=== PATIENT | male | born 1950 | race Caucasian/White ===

== ENCOUNTER → 2018-07-10 | Outpatient (CLI) | payer OTHER | LOC: LAB FS 11:00 | PROVIDERS: ATTEND Family Medicine | DX: L97.523 Non-pressure chronic ulcer of other part of left foot with necrosis of muscle (principal) | CPT/HCPCS: 87070; 87075; 87077; 87186; 87205 ==

== ENCOUNTER → 2018-08-22 | Outpatient (CLI) | payer OTHER | LOC: LAB FS 16:09 | PROVIDERS: ATTEND Family Medicine | DX: L97.329 Non-pressure chronic ulcer of left ankle with unspecified severity (principal) | CPT/HCPCS: 87070; 87205 ==

== ENCOUNTER → 2018-09-17 | Outpatient (CLI) | payer OTHER | LOC: LAB FS 14:54 | PROVIDERS: ATTEND Family Medicine | DX: L89.623 Pressure ulcer of left heel, stage 3 (principal) | CPT/HCPCS: 87070; 87205 ==

== ENCOUNTER → 2018-12-04 | Outpatient (CLI) | payer MEDICARE, OTHER | LOC: WOUNDCARE 09:14 | PROVIDERS: ATTEND Nurse Practitioner | DX: E11.621 Type 2 diabetes mellitus with foot ulcer (principal); E11.22 Type 2 diabetes mellitus with diabetic chronic kidney disease; N18.6 End stage renal disease; L97.522 Non-pressure chronic ulcer of other part of left foot with fat layer exposed; I12.0 Hypertensive chronic kidney disease with stage 5 chronic kidney disease or end stage renal disease; M19.91 Primary osteoarthritis, unspecified site; E11.40 Type 2 diabetes mellitus with diabetic neuropathy, unspecified | CPT/HCPCS: 99214 ==

== ENCOUNTER → 2018-12-04 | Outpatient (CLI) | payer MEDICARE, OTHER ==
--- NOTE | 2018-12-04 11:24 | Diagnostic Imaging Report ---
INDICATION: Ulcer. Previous amputation. History of diabetes . COMPARISON: None. FINDINGS: Three radiographic views of the left foot were obtained. There is rounded lucency with central opacity in the proximal portions of the fifth metatarsal that measures 7 mm and is only well visualized on the lateral view. Findings could be on the basis of osteomyelitis with potential sequestrum. Additionally, there is gross deformity of the distal margins of the fifth metatarsal. There is narrowing of the distal fifth metatarsal with overall increased sclerosis. Note is also made of gross deformity of the distal margins of the first metatarsal as well as the proximal distal margins of the first proximal phalanx. No acute fracture is seen. Joint spaces are otherwise maintained. No unexpected radiopaque foreign bodies are seen. Note is made of generalized soft tissue swelling. IMPRESSION: 1. Abnormal appearance to the fifth metatarsal as described above. Again, findings are concerning for osteomyelitis of the proximal fifth metatarsal. Correlation with MRI is recommended. 2. Chronic appearing gross deformity of the great toe. Dictated by: Dictated on workstation # [id number]
== END ==
LOC: RAD 10:41
PROVIDERS: ATTEND Nurse Practitioner
DX: E11.621 Type 2 diabetes mellitus with foot ulcer (principal); E11.22 Type 2 diabetes mellitus with diabetic chronic kidney disease; N18.6 End stage renal disease; L97.522 Non-pressure chronic ulcer of other part of left foot with fat layer exposed; Z89.432 Acquired absence of left foot
CPT/HCPCS: 73630

== ENCOUNTER → 2018-12-11 | Outpatient (CLI) | payer MEDICARE, OTHER ==
--- NOTE | 2018-12-11 18:10 | Diagnostic Imaging Report ---
INDICATION: Diabetic foot ulcer. EXAMINATION: Noninvasive study was performed. FINDINGS: Patient has had a right below the knee amputation. Waveforms in the left thigh and calf appear unremarkable. The segmental pressures are decreased in the ankle and digital level on the left side. IMPRESSION: Decreased segmental brachial index on the left side in the dorsalis pedis and digital level, as described above. Dictated by: Dictated on workstation # [id number]
== END ==
LOC: RAD 11:42
PROVIDERS: ATTEND Nurse Practitioner
DX: L97.522 Non-pressure chronic ulcer of other part of left foot with fat layer exposed (principal); E11.621 Type 2 diabetes mellitus with foot ulcer; E11.22 Type 2 diabetes mellitus with diabetic chronic kidney disease; N18.6 End stage renal disease
CPT/HCPCS: 93923

== ENCOUNTER → 2018-12-11 | Outpatient (CLI) | payer MEDICARE, OTHER | LOC: WOUNDCARE 10:56 | PROVIDERS: ATTEND Nurse Practitioner | DX: E11.621 Type 2 diabetes mellitus with foot ulcer (principal); E11.52 Type 2 diabetes mellitus with diabetic peripheral angiopathy with gangrene; E11.22 Type 2 diabetes mellitus with diabetic chronic kidney disease; N18.6 End stage renal disease; L97.522 Non-pressure chronic ulcer of other part of left foot with fat layer exposed | CPT/HCPCS: 99213 ==

== ENCOUNTER → 2018-12-18 | Outpatient (CLI) | payer MEDICARE | LOC: WOUNDCARE 09:37 | PROVIDERS: ATTEND Surgery | DX: E11.621 Type 2 diabetes mellitus with foot ulcer (principal); E11.42 Type 2 diabetes mellitus with diabetic polyneuropathy; L97.522 Non-pressure chronic ulcer of other part of left foot with fat layer exposed; M86.472 Chronic osteomyelitis with draining sinus, left ankle and foot; M14.672 Charcot's joint, left ankle and foot; E11.22 Type 2 diabetes mellitus with diabetic chronic kidney disease; N18.6 End stage renal disease; E66.01 Morbid (severe) obesity due to excess calories; M62.3 Immobility syndrome (paraplegic); E11.65 Type 2 diabetes mellitus with hyperglycemia; E11.52 Type 2 diabetes mellitus with diabetic peripheral angiopathy with gangrene | CPT/HCPCS: 11042; 87070; 87077; 87186; 87205 ==

== ENCOUNTER → 2018-12-24 | Outpatient (CLI) | payer MEDICARE | LOC: WOUNDCARE 10:29 | PROVIDERS: ATTEND Surgery | DX: L97.522 Non-pressure chronic ulcer of other part of left foot with fat layer exposed (principal); E11.621 Type 2 diabetes mellitus with foot ulcer; E11.52 Type 2 diabetes mellitus with diabetic peripheral angiopathy with gangrene; E11.42 Type 2 diabetes mellitus with diabetic polyneuropathy; M86.472 Chronic osteomyelitis with draining sinus, left ankle and foot; M14.672 Charcot's joint, left ankle and foot; E11.22 Type 2 diabetes mellitus with diabetic chronic kidney disease; N18.6 End stage renal disease; E66.01 Morbid (severe) obesity due to excess calories; E11.65 Type 2 diabetes mellitus with hyperglycemia; M62.3 Immobility syndrome (paraplegic) | CPT/HCPCS: 11042 ==

== ENCOUNTER → 2018-12-29 | Outpatient (CLI) | payer MEDICARE, OTHER ==
--- NOTE | 2018-12-29 13:50 | Diagnostic Imaging Report ---
PROCEDURE: MR imaging left lower extremity without contrast. TECHNIQUE: Multiplanar, multisequence non contrast enhanced MR imaging of the left lower extremity was accomplished. INDICATION: Wound at the lateral left foot. COMPARISON: Radiographs from 12/04/2018. FINDINGS: The fifth metatarsal base demonstrates mild bone marrow edema, with subtle T1-weighted hypointensity at the lateral base (image 46 series 7). There are degenerative changes throughout the midfoot. There are degenerative changes at the metatarsophalangeal joints as well. There are cortical erosions and synovitis about the first metatarsal head and first proximal phalangeal base as well as about the great toe interphalangeal joint. There is osteonecrosis at the first proximal phalangeal head. The fifth metatarsal shaft demonstrates a diminutive appearance and deformity which is chronic. There is diffuse intramuscular soft tissue edema and extensive muscular atrophy, likely due to neuropathic changes. There is mild subcutaneous edema with skin thickening about the foot. No drainable fluid collection is seen. IMPRESSION: 1. Mild bone marrow edema with subtle T1-weighted hypointensity at the lateral aspect of the left fifth metatarsal base. This is consistent with osteitis with possible early osteomyelitis. 2. Extensive cortical erosions and marked synovitis in the left great toe metatarsophalangeal joint and interphalangeal joint. This may be due to gout or other inflammatory arthropathy. 3. Osteonecrosis of the first proximal phalangeal head. 4. Superficial and deep soft tissue edema. Extensive muscular atrophy is likely due to neuropathic changes. Dictated by: Dictated on workstation # [id number]
== END ==
LOC: RAD 12-24 11:58
PROVIDERS: ATTEND Nurse Practitioner
DX: E11.621 Type 2 diabetes mellitus with foot ulcer (principal); E11.22 Type 2 diabetes mellitus with diabetic chronic kidney disease; N18.6 End stage renal disease; L97.522 Non-pressure chronic ulcer of other part of left foot with fat layer exposed; M85.88 Other specified disorders of bone density and structure, other site; M65.88 Other synovitis and tenosynovitis, other site; M87.9 Osteonecrosis, unspecified

== ENCOUNTER → 2018-12-31 | Outpatient (CLI) | payer MEDICARE | LOC: WOUNDCARE 10:39 | PROVIDERS: ATTEND Surgery | DX: L97.522 Non-pressure chronic ulcer of other part of left foot with fat layer exposed (principal); E11.621 Type 2 diabetes mellitus with foot ulcer; E11.52 Type 2 diabetes mellitus with diabetic peripheral angiopathy with gangrene; E11.42 Type 2 diabetes mellitus with diabetic polyneuropathy; L97.424 Non-pressure chronic ulcer of left heel and midfoot with necrosis of bone; M86.472 Chronic osteomyelitis with draining sinus, left ankle and foot; M14.672 Charcot's joint, left ankle and foot; E11.22 Type 2 diabetes mellitus with diabetic chronic kidney disease; N18.6 End stage renal disease; E11.65 Type 2 diabetes mellitus with hyperglycemia; E66.01 Morbid (severe) obesity due to excess calories; M62.3 Immobility syndrome (paraplegic) | CPT/HCPCS: 11044; 11047 ==

== ENCOUNTER → 2019-01-14 | Outpatient (CLI) | payer MEDICARE | LOC: WOUNDCARE 10:26 | PROVIDERS: ATTEND Surgery | DX: E11.621 Type 2 diabetes mellitus with foot ulcer (principal); E11.42 Type 2 diabetes mellitus with diabetic polyneuropathy; E11.52 Type 2 diabetes mellitus with diabetic peripheral angiopathy with gangrene; E11.610 Type 2 diabetes mellitus with diabetic neuropathic arthropathy; E11.22 Type 2 diabetes mellitus with diabetic chronic kidney disease; E11.65 Type 2 diabetes mellitus with hyperglycemia; L97.424 Non-pressure chronic ulcer of left heel and midfoot with necrosis of bone; M86.472 Chronic osteomyelitis with draining sinus, left ankle and foot; A52.16 Charcot's arthropathy (tabetic); N18.6 End stage renal disease; E66.01 Morbid (severe) obesity due to excess calories; M62.3 Immobility syndrome (paraplegic); I96 Gangrene, not elsewhere classified | CPT/HCPCS: 11044 ==

== ENCOUNTER 2019-01-21 12:07 | Outpatient (RCR) | payer MEDICARE, OTHER ==
[~2019-01-21] VITALS: Ht 180.3 cm; Wt 136.4 kg
== END 2019-04-21 | disposition home or self-care (01) ==
LOC: DSME 12:07
PROVIDERS: ATTEND Pediatrics
DX: E11.65 Type 2 diabetes mellitus with hyperglycemia (principal); E11.40 Type 2 diabetes mellitus with diabetic neuropathy, unspecified; E11.51 Type 2 diabetes mellitus with diabetic peripheral angiopathy without gangrene; E11.21 Type 2 diabetes mellitus with diabetic nephropathy; E66.9 Obesity, unspecified

== ENCOUNTER → 2019-01-21 | Outpatient (CLI) | payer MEDICARE | LOC: WOUNDCARE 10:23 | PROVIDERS: ATTEND Surgery | DX: E11.621 Type 2 diabetes mellitus with foot ulcer (principal); E11.42 Type 2 diabetes mellitus with diabetic polyneuropathy; L97.424 Non-pressure chronic ulcer of left heel and midfoot with necrosis of bone; M86.472 Chronic osteomyelitis with draining sinus, left ankle and foot; M14.672 Charcot's joint, left ankle and foot; E11.22 Type 2 diabetes mellitus with diabetic chronic kidney disease; N18.6 End stage renal disease; E66.01 Morbid (severe) obesity due to excess calories; E11.65 Type 2 diabetes mellitus with hyperglycemia; M62.3 Immobility syndrome (paraplegic); E11.52 Type 2 diabetes mellitus with diabetic peripheral angiopathy with gangrene | CPT/HCPCS: 11044 ==

== ENCOUNTER → 2019-01-28 | Outpatient (CLI) | payer MEDICARE, OTHER | LOC: WOUNDCARE 10:14 | PROVIDERS: ATTEND Surgery | DX: L97.424 Non-pressure chronic ulcer of left heel and midfoot with necrosis of bone (principal); E11.621 Type 2 diabetes mellitus with foot ulcer; E11.42 Type 2 diabetes mellitus with diabetic polyneuropathy; E11.52 Type 2 diabetes mellitus with diabetic peripheral angiopathy with gangrene; M86.472 Chronic osteomyelitis with draining sinus, left ankle and foot; M14.672 Charcot's joint, left ankle and foot; E11.22 Type 2 diabetes mellitus with diabetic chronic kidney disease; N18.6 End stage renal disease; E66.01 Morbid (severe) obesity due to excess calories; E11.65 Type 2 diabetes mellitus with hyperglycemia; M62.3 Immobility syndrome (paraplegic) | CPT/HCPCS: 11044 ==

== ENCOUNTER → 2019-02-04 | Outpatient (CLI) | payer MEDICARE, OTHER | LOC: WOUNDCARE 10:10 | PROVIDERS: ATTEND Surgery | DX: E11.621 Type 2 diabetes mellitus with foot ulcer (principal); E11.42 Type 2 diabetes mellitus with diabetic polyneuropathy; L97.424 Non-pressure chronic ulcer of left heel and midfoot with necrosis of bone; M86.472 Chronic osteomyelitis with draining sinus, left ankle and foot; M14.672 Charcot's joint, left ankle and foot; E66.01 Morbid (severe) obesity due to excess calories; E11.22 Type 2 diabetes mellitus with diabetic chronic kidney disease; N18.6 End stage renal disease; E11.65 Type 2 diabetes mellitus with hyperglycemia; M62.3 Immobility syndrome (paraplegic); E11.52 Type 2 diabetes mellitus with diabetic peripheral angiopathy with gangrene | CPT/HCPCS: 99212 ==

== ENCOUNTER → 2019-04-03 | Outpatient (CLI) | payer MEDICARE, OTHER ==
--- NOTE | 2019-04-03 15:13 | Diagnostic Imaging Report ---
PROCEDURE: US Renal Bilateral. TECHNIQUE: Multiple real-time grayscale images were obtained over the kidneys in various projections bilaterally. INDICATION: Urinary retention. FINDINGS: Right kidney is surgically absent. Left kidney measures 11.2 x 5.5 x 5.5 cm. There is a cyst in the upper pole of left kidney measuring 19 mm x 20 mm. Cortical thickness and echogenicity is normal. No calculi are seen. There is no hydronephrosis. Prevoid bladder volume is 156 mL. The ureteral jets were not visualized. Patient was unable to void. Note is made of stones within the gallbladder. IMPRESSION: 1. Solitary left kidney demonstrating a 2 cm left upper pole renal cyst. No calculi or hydronephrosis is seen. 2. Cholelithiasis. Dictated by: Dictated on workstation # [id number]
== END ==
LOC: RAD 13:41
PROVIDERS: ATTEND Nurse Practitioner Family
DX: N28.1 Cyst of kidney, acquired (principal); K80.20 Calculus of gallbladder without cholecystitis without obstruction
CPT/HCPCS: 76770

== ENCOUNTER 2019-08-02 12:16 | Emergency (ER) | payer MEDICARE, OTHER ==
--- OUTSIDE RECORDS SUMMARY | 2019-08-02 12:21 | XMS REPORT ---
Author Author Neel MARKHAM Organization [facility] [place] Address [address] [place] [address] Care Team Providers Care Steel Detailer Name Role Phone BECCA MARKHAM Unavailable PROBLEMS Type Condition ICD9-CM Code TQG27-SG Code Onset Dates Condition S tatus SNOMED Code Problem Hypertension associated with stage 4 chronic kidney disease due to type 2 diabetes mellitus E11.22 12 Sep, 2016 Active 00771584 3 Problem Nail avulsion, toe S91.209A 07 Nov, 2010 Active 98370421 Problem MRSA cellulitis of left foot L03.116 08 Oct, 3 Active 64953377863983908 Problem Type 1 diabetes mellitus with stage 2 chronic kidney disea se E10.22 Active 358328473 Problem Osteomyelitis, ankle and foot M86.9 July, 11 Active 41371819 Problem Allergic rhinitis due to other allergen J30.89 Active 00082129 Problem Chronic kidney disease with end stage renal failure on dialysis N18.6 Jan, Active 78317258 Problem Single kidney Z90.5 Active 721374 007 Problem History of right below knee amputation Z89.511 Active 241934938 Problem Diabetic foot infection E11.628 08 Oct, 2012 Act micaela Problem Unspecified sleep apnea G47.30 Active 56351260 Problem Allergic rhinitis J30.9 Active 61 354035 Problem Hyponatremia E87.1 Active 6434696 8 Problem Hypertension I10 Active 3260005 3 Problem Renal insufficiency N28.9 Active 710892778 Problem Hyperkalemia E87.5 Active 7718517 9 Problem Panlobular emphysema J43.1 Active 3052948 Problem Deep vein thrombosis (DVT) I82.409 Act micaela 669696790 Problem 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 Active 547145292 Problem Dialysis patient Z99.2 Active 251 123771 Problem Diabetic polyneuropathy associated with type 1 d iabetes mellitus E10.42 Active 54646712 Problem Morbid (severe) obesity due to excess calories E66 .01 Active 677554567 Problem Paroxysmal atrial fibrillation I48.0 Active 623281932 Problem STEPHEN (obstructive sleep apnea) G47.33 Active 83611724 Problem Major depressive disorder, single episode, in full remissi on F32.5 Active 77147947 Problem Restrictive lung disease J98.4 Activ e 23265985 Problem Morbid obesity E66.01 Active 17089 6002 Problem Osteomyelitis, unspecified M86.9 Act micaela 35568292 Problem 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 Active 959861612 Problem Type 1 diabetes mellitus with foot ulcer E10.621 Active 23849128099614 Problem 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 Active 292044045 ALLERGIES Substance Reaction Event Type Date Status Morphine Sulfate rash Drug Allergy May, Active ENCOUNTERS Encounter Location Date [facility] [address] [place] [address] Apr, [facility] [address] [place] [address] Apr, [facility] [address] [place] [address] Feb, [facility] [address] [place] [address] Feb, [facility] [address] [place] [address] Feb, [facility] [address] [place] [address] Feb, [facility] [address] [place] [address] Feb, [facility] [address] [place] [address] Feb, [facility] [address] [place] [address] Jan, [facility] [address] [place] [address] Jan, Hypertension I10 ; Major dep ressive disorder, single episode, in full remission F32.5 ; 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 ; Paroxysmal atrial fibrillation I48.0 and Osteomyelitis, ankle and foot M86.9 [facility] [place] [address] [place] [address] Jan, [facility] [place] [address] [place] [address] Nov, [facility] [place] [address] [place] [address] Oct, Osteomyelitis, ankle and seferino t M86.9 and 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 [facility] [address] [facility] [place] [address] Oct, [facility] [address] [place] [address] Oct, [facility] [place] [address] [place] [address] Oct, [facility] [address] [place] [address] Sep, [facility] [address] [place] [address] Sep, [facility] [address] [place] [address] Sep, Type 1 diabetes mellitus wit h diabetic chronic kidney disease E10.22 ; Type 1 diabetes mellitus with foot ulcer E10.621 ; Non-pressure chronic ulcer of right heel and midfoot with fat layer exposed L97.412 and Morbid obesity E66.01 [facility] [place] [address] [place] [address] Sep, [facility] [place] [address] [place] [address] Sep, [facility] [place] [address] [place] [address] Sep, [facility] [place] [address] [place] [address] Sep, [facility] [address] [id number] [place] [address] Aug, [facility] [address] [place] [address] Aug, [facility] [address] [place] [address] Aug, Osteomyelitis, ankle and seferino t M86.9 and Decubitus ulcer of heel, stage 4 L89.604 [facility] [address] [place] [address] Aug, [facility] [address] [place] [address] Aug, [facility] [address] [place] [address] Aug, [facility] [address] [place] [address] July, [facility] [address] [place] [address] July, Type 1 diabetes mellitus wit h diabetic chronic kidney disease E10.22 [facility] [address] [place] [address] July, [facility] [address] [place] [address] Jun, [facility] [address] [place] [address] Jun, [facility] [address] [place] [address] Jun, Type 1 diabetes mellitus wit h diabetic chronic kidney disease E10.22 and Chronic renal disease, stage III N18.3 [facility] [address] [place] [address] Jun, Type 1 diabetes mellitus wit h diabetic chronic kidney disease E10.22 and Chronic renal disease, stage III N18.3 [facility] [place] [address] [place] [address] Jun, Osteomyelitis, unspecified M 86.9 [facility] [place] [address] [place] [address] Jun, [facility] [address] [place] [address] Jun, [facility] [address] [place] [address] Jun, [facility] [address] [place] [address] Jun, Morbid (severe) obesity due to excess calories E66.01 ; Dialysis patient Z99.2 ; 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 ; Chronic renal disease, stage III N18.3 ; Single kidney Z90.5 ; Status post below knee amputation of right lower extremity Z89.511 and Diabetic polyneuropathy associated with type 1 diabetes mellitus E10.42 [facility] [address] [place] [address] Jun, [facility] [address] [place] [address] Jun, [facility] [address] [place] [address] Jun, [facility] [address] [place] [address] May, [facility] [address] [place] [address] May, [facility] [address] [place] [address] May, [facility] [address] [id number] [place] [address] May, [facility] [address] [place] [address] May, Type 1 diabetes mellitus wit h diabetic chronic kidney disease E10.22 and Chronic renal disease, stage III N18.3 [facility] [address] [place] [address] Apr, [facility] [address] [place] [address] Apr, [facility] [address] [place] [address] Apr, [facility] [address] [id number] [place] [address] Mar, [facility] [address] [id number] [place] [address] Feb, [facility] [address] [id number] [place] [address] Aug, IMMUNIZATIONS No Known Immunizations SOCIAL HISTORY Never Assessed REASON FOR VISIT CH PLAN OF CARE Activity Details Follow Up 3 Months Reason:lab and visi t VITAL SIGNS Height 5'10" in 2018-06-17 Weight 250 lbs 2018-06-17 BMI 35.87 kg/m2 2018-06-17 Blood pressure systolic 134 mmHg 2018-06-17 Blood pressure diastolic 72 mmHg 2018-06-17 MEDICATIONS Medication Instructions Dosage Frequency Start Date End Date Duration S tatus Aspirin Adult Low Dose 81 MG Orally Once a day 1 tablet 24h 30 day(s) Active HydrALAZINE HCl 50 MG Orally Once a day 1 tablet with food 24h 30 day(s) Active Ozempic 0.25 or 0.5 MG/DOSE Subcutaneous once weekly as directed Apr, 4 weeks Active Amlodipine Besylate 5 MG Orally Once a day 1 tablet 24h 30 day(s) Active Assure 3 Test - as directed Acti ve MiraLax - Orally Once a day 1 packet mixed with 8 ounces of fluid 24h 30 day(s) Active Silvadene 1 % Externally Once a day 1 application to affected area 24h Active Nephro-Forest 0.8 MG Orally Once a day 1 tablet 24h Apr, 30 day(s) Active Humalog 100 UNIT/ML Subcutaneous as directed Per Sliding Sca le: 200-250=2units, 251-300=4units, 301-350=6units. Call physician for BS> 350 - subCUTClass: Historical Med Active Coreg 6.25 MG Orally 2 times a day 1 tablet 12h Active Cymbalta 60 MG Orally Once a day 1 capsule 24h 30 da y(s) Active Protonix 40 MG Orally Once a day 1 tablet 24h 30 day (s) Active HydrOXYzine HCl 25 MG Orally every 8 hrs 1 tablet as needed 8h 30 day(s) Active Lantus 100 UNIT/ML Subcutaneous at bedtime 35 units Active Calcium Acetate 667 MG Orally Three times a day 2 capsules with meals 8h 30 day(s) Active Torsemide 20 MG Orally as directed 1 tab daily except 2 tabs on non-dialysis days Active Oxycodone-Acetaminophen 5-325 MG Orally Once a day 1 tablet as needed 24 h Active Sodium Bicarbonate 325 MG TAKE 2 TABLETS BY MOUTH TWICE DAILY 15 Active RESULTS No Results PROCEDURES Procedure Date Ordered Result Body Site [facility] VISIT ESTABLISHED PATIENT June 17, 2018 INSTRUCTIONS MEDICATIONS ADMINISTERED No Known Medications MEDICAL (GENERAL) HISTORY Type Description Date Medical History Type 1 diabetes mellitus with diabetic c hronic kidney disease Medical History STEPHEN (obstructive sleep apnea) Medical History Allergic rhinitis Medical History Hyponatremia Medical History Morbid obesity Medical History Osteomyelitis Medical History History of right below knee amputation Medical History Panlobular emphysema Medical History Renal insufficiency Medical History Deep vein thrombosis (DVT) Medical History Restrictive lung disease Medical History Hypertension Medical History Hyperkalemia Medical History Chronic renal disease, stage III Surgical History right above the knee amputation Surgical History kidney right removal Surgical History hernia repair Surgical History vein clean out in L arm 06/24/18
--- OUTSIDE RECORDS SUMMARY | 2019-08-02 12:21 | XMS REPORT ---
Author Author Neel MARKHAM Organization [facility] [facility] Address [address] [place] [address] Care Team Providers Care School Aide Name Role Phone BECCA MARKHAM Unavailable PROBLEMS Type Condition ICD9-CM Code XRS10-ZE Code Onset Dates Condition S tatus SNOMED Code Problem Morbid obesity E66.01 Active 45418 6002 Problem Allergic rhinitis J30.9 Active 61 323966 Problem Hyponatremia E87.1 Active 1212840 8 Problem Hypertension I10 Active 9637911 3 Problem Renal insufficiency N28.9 Active 070834242 Problem 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 Active 250471582 Problem STEPHEN (obstructive sleep apnea) G47.33 Active 63249187 Problem 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 Active 983359329 Problem Osteomyelitis, ankle and foot M86.9 July, 11 Active 78279117 Problem Type 1 diabetes mellitus with foot ulcer E10.621 Active 02510239181543 Problem Nail avulsion, toe S91.209A 07 Nov, 2010 Active 68071318 Problem Chronic kidney disease with end stage renal failure on dialysis N18.6 Jan, Active 47940791 Problem Type 1 diabetes mellitus with stage 2 chronic kidney disea se E10.22 Active 914481044 Problem History of right below knee amputation Z89.511 Active 248460140 Problem Restrictive lung disease J98.4 Activ e 21133598 Problem Dialysis patient Z99.2 Active 251 132933 Problem Unspecified sleep apnea G47.30 Active 66444314 Problem Single kidney Z90.5 Active 873758 007 Problem Morbid (severe) obesity due to excess calories E66 .01 Active 531822022 Problem Diabetic foot infection E11.628 08 Oct, 2012 Act micaela Problem Diabetic polyneuropathy associated with type 1 d iabetes mellitus E10.42 Active 37540223 Problem Allergic rhinitis due to other allergen J30.89 Active 21372496 Problem 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 Active 481614146 Problem MRSA cellulitis of left foot L03.116 08 Oct, 201 3 Active 10550786831116899 Problem Osteomyelitis, unspecified M86.9 Act micaela 32479208 Problem Hypertension associated with stage 4 chronic kidney disease due to type 2 diabetes mellitus E11.22 12 Sep, 2016 Active 64312010 3 Problem Paroxysmal atrial fibrillation I48.0 Active 662113769 Problem Major depressive disorder, single episode, in full remissi on F32.5 Active 68593157 Problem Chronic obstructive pulmonary disease, unspecified COPD ty pe J44.9 Active 07575986 Problem Complete traumatic amputatio n of right lower leg, level unspecified, initial encounter S88.911A Active 528130271 Problem Hyperkalemia E87.5 Active 0313281 9 Problem Difficulty swallowing R13.10 Active 501639710 Problem Panlobular emphysema J43.1 Active 9485366 Problem Deep vein thrombosis (DVT) I82.409 Act micaela 241564303 Problem Peripheral vascular disease, unspecified I73.9 Active 301589870 Problem Chronic kidney disease, stage 4 (severe) N18.4 Active 117305986 Problem Obesity (BMI 30-39.9) E66.9 Active 157413811 Problem 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, level unspecified, 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 Active 783370123 ALLERGIES No Information ENCOUNTERS Encounter Location Date Diagnosis [address] [place] [address] July, [address] [place] [address] May, [address] [place] [address] Apr, [address] [place] [address] Apr, Encounter for Medicare annua l wellness exam Z00.00 ; Paroxysmal atrial fibrillation I48.0 ; Morbid (severe) obesity due to excess calories E66.01 ; 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 ; Chronic kidney disease, stage 4 (severe) N18.4 ; Dialysis patient Z99.2 ; History of right below knee amputation Z89.511 ; Hypertension I10 ; Peripheral vascular disease, unspecified I73.9 ; Chronic obstructive pulmonary disease, unspecified COPD type J44.9 ; Left eye complaint H57.9 and Colon cancer screening Z12.11 [facility] [address] [facility] [id number] [place] [address] Apr, [address] [place] [address] Apr, [address] [place] [address] Apr, [address] [place] [address] Apr, Difficulty swallowing R13.10 [address] [place] [address] Apr, Unspecified staphylococcus a s the cause of diseases classified elsewhere B95.8 and Obesity (BMI 30-39.9) E66.9 [address] [place] [address] Mar, STEPHEN (obstructive sleep apnea ) G47.33 [address] [place] [address] Mar, [address] [place] [address] Mar, [address] [place] [address] Mar, STEPHEN (obstructive sleep apnea ) G47.33 [address] [place] [address] Mar, [address] [place] [address] Mar, [address] [place] [address] Feb, [facility] [address] [place] [address] Feb, [facility] [place] [address] [place] [address] Feb, [facility] [place] [address] [place] [address] Feb, [facility] [place] [address] [place] [address] Feb, [facility] [place] [address] [place] [address] Feb, [facility] [place] [address] [place] [address] Jan, [facility] [place] [address] [place] [address] Jan, Hypertension I10 ; Major dep ressive disorder, single episode, in full remission F32.5 ; 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 ; Paroxysmal atrial fibrillation I48.0 and Osteomyelitis, ankle and foot M86.9 [facility] [place] [address] [place] [address] Jan, [facility] [place] [address] [place] [address] Nov, [facility] [place] [address] [place] [address] Oct, Osteomyelitis, ankle and seferino t M86.9 and 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 [facility] [place] [address] [facility] [id number] [place] [address] Oct, [facility] [place] [address] [place] [address] Oct, [facility] [place] [address] [place] [address] Oct, [facility] [place] [facility] [address] [place] [address] Sep, [facility] [place] [address] [place] [address] Sep, [facility] [place] [address] [place] [address] Sep, Type 1 diabetes mellitus wit h diabetic chronic kidney disease E10.22 ; Type 1 diabetes mellitus with foot ulcer E10.621 ; Non-pressure chronic ulcer of right heel and midfoot with fat layer exposed L97.412 and Morbid obesity E66.01 [facility] [place] [address] [place] [address] Sep, [facility] [place] [address] [place] [address] Sep, [facility] [place] [address] [place] [address] Sep, [facility] [place] [address] [place] [address] Sep, [facility] [address] [id number] [place] [address] Aug, [facility] [place] [address] [place] [address] Aug, [facility] [place] [address] [place] [address] Aug, Osteomyelitis, ankle and seferino t M86.9 and Decubitus ulcer of heel, stage 4 L89.604 [facility] [place] [address] [place] [address] Aug, [facility] [place] [address] [place] [address] Aug, [facility] [place] [address] [place] [address] Aug, [facility] [place] [address] [place] [address] July, [facility] [place] [facility] [address] [facility] [address] [place] [address] July, Type 1 diabetes mellitus wit h diabetic chronic kidney disease E10.22 [facility] [place] [address] [place] [address] July, [facility] [place] [address] [place] [address] Jun, [facility] [place] [address] [place] [address] Jun, [facility] [place] [address] [place] [address] Jun, Type 1 diabetes mellitus wit h diabetic chronic kidney disease E10.22 and Chronic renal disease, stage III N18.3 [facility] [place] [address] [place] [address] Jun, Type 1 diabetes mellitus wit h diabetic chronic kidney disease E10.22 and Chronic renal disease, stage III N18.3 [facility] [place] [address] [place] [address] Jun, Osteomyelitis, unspecified M 86.9 [facility] [place] [address] [place] [address] Jun, [facility] [place] [facility] [address] [place] [address] Jun, [facility] [place] [address] [place] [address] Jun, [facility] [place] [address] [place] [address] Jun, Morbid (severe) obesity due to excess calories E66.01 ; Dialysis patient Z99.2 ; 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 ; Chronic renal disease, stage III N18.3 ; Single kidney Z90.5 ; Status post below knee amputation of right lower extremity Z89.511 and Diabetic polyneuropathy associated with type 1 diabetes mellitus E10.42 [facility] [place] [address] [place] [address] Jun, [facility] [place] [address] [place] [address] Jun, [facility] [place] [address] [place] [address] Jun, [facility] [place] [address] [place] [address] May, [facility] [place] [facility] [address] [place] [address] May, [facility] [place] [address] [place] [address] May, [facility] [address] [id number] [place] [address] May, [facility] [place] [address] [place] [address] May, Type 1 diabetes mellitus wit h diabetic chronic kidney disease E10.22 and Chronic renal disease, stage III N18.3 [facility] [place] [address] [place] [address] Apr, [facility] [place] [facility] [address] [place] [address] Apr, [facility] [place] [address] [place] [address] Apr, [facility] [address] [id number] [place] [address] Mar, [facility] [address] [id number] [place] [address] Feb, [facility] [id number] [place] [address] Aug, IMMUNIZATIONS No Known Immunizations SOCIAL HISTORY Never Assessed REASON FOR VISIT Requests return call PLAN OF CARE VITAL SIGNS MEDICATIONS Unknown Medications RESULTS No Results PROCEDURES No Known procedures INSTRUCTIONS MEDICATIONS ADMINISTERED No Known Medications MEDICAL [...] vein clean out in L arm 06/24/18 Surgical History left above the knee amputation Hospitalization History surgeries
--- OUTSIDE RECORDS SUMMARY | 2019-08-02 12:21 | XMS REPORT ---
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.22 Active 041682092 Problem Allergic rhinitis due to other allergen J30.89 Active 19688063 Problem Chronic kidney disease with end stage renal failure on dialysis N18.6 Jan, Active 01128339 Problem STEPHEN (obstructive sleep apnea) G47.33 Active 84914698 Problem Restrictive lung disease J98.4 Activ e 84076987 Problem Hyponatremia E87.1 Active 0364936 8 Problem Morbid obesity E66.01 Active 62478 6002 Problem Osteomyelitis, unspecified M86.9 Act micaela 72655940 Problem MRSA cellulitis of left foot L03.116 Oct, 3 Active 96889133300288996 Problem Diabetic polyneuropathy associated with type 1 d iabetes mellitus E10.42 Active 04772584 Problem Hypertension associated with stage 4 chronic kidney disease due to type 2 diabetes mellitus E11.22 Sep, Active 55734304 3 Problem Osteomyelitis, ankle and foot M86.9 July, 11 Active 99257235 Problem Nail avulsion, toe S91.209A Nov, Active 16566098 Problem Hyperkalemia E87.5 Active 2610960 9 Problem Panlobular emphysema J43.1 Active 5234710 Problem History of right below knee amputation Z89.511 Active 626320218 Problem Deep vein thrombosis (DVT) I82.409 Act micaela 832423773 Problem Single kidney Z90.5 Active 197030 007 Problem 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 Active 551263627 Problem Morbid (severe) obesity due to excess calories E66 .01 Active 120007328 Problem Diabetic foot infection E11.628 08 Oct, 2012 Act micaela Problem Dialysis patient Z99.2 Active 251 211802 Problem Unspecified sleep apnea G47.30 Active 45510015 Problem Type 1 diabetes mellitus with foot ulcer E10.621 Active 13363881096345 Problem 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 Active 531011121 Problem 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 Active 885233609 Problem Obesity (BMI 30-39.9) E66.9 Active 831083366 Problem Renal insufficiency N28.9 Active 257712624 Problem Difficulty swallowing R13.10 Active 839761333 Problem Allergic rhinitis J30.9 Active 61 968631 Problem Hypertension I10 Active 8618491 3 Problem Paroxysmal atrial fibrillation I48.0 Active 724258096 Problem Major depressive disorder, single episode, in full remissi on F32.5 Active 79211738 Problem 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, level unspecified, 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 Active 278182478 Problem Complete traumatic amputatio n of right lower leg, level unspecified, initial encounter S88.911A Active 017683717 ALLERGIES No Information ENCOUNTERS Encounter Location Date Diagnosis [address] [place] [address] July, [address] [place] [address] 17 Apr, 2019 [address] [place] [address] 12 Apr, 2019 [address] [place] [address] Apr, [address] [place] [address] 10 Apr, 2019 Difficulty swallowing R13.[address] [place] [address] 07 Apr, 2019 Unspecified staphylococcus a s the cause of diseases classified elsewhere B95.8 and Obesity (BMI 30-39.9) E66.9 [address] [place] [address] Mar, STEPHEN (obstructive sleep apnea ) G47.33 [facility] [place] [address] [place] [address] Mar, [facility] [place] [address] [place] [address] Mar, [facility] [place] [address] [place] [address] Mar, STEPHEN (obstructive sleep apnea ) G47.33 [facility] [place] [address] [place] [address] Mar, [facility] [place] [address] [place] [address] Mar, [facility] [place] [address] [place] [address] Feb, [facility] [place] [address] [place] [address] Feb, [facility] [place] [address] [place] [address] Feb, [facility] [place] [address] [place] [address] Feb, [facility] [place] [address] [place] [address] Feb, [facility] [place] [address] [place] [address] Feb, [facility] [place] [address] [place] [address] Jan, [facility] [place] [address] [place] [address] Jan, Hypertension I10 ; Major dep ressive disorder, single episode, in full remission F32.5 ; 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 ; Paroxysmal atrial fibrillation I48.0 and Osteomyelitis, ankle and foot M86.9 [facility] [place] [address] [place] [address] Jan, [facility] [place] [address] [place] [address] Nov, [facility] [place] [address] [place] [address] Oct, Osteomyelitis, ankle and seferino t M86.9 and 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 [facility] [address] [facility] [id number] [address] Oct, [facility] [place] [address] [place] [address] Oct, [facility] [place] [address] [place] [address] Oct, [facility] [place] [facility] [address] [place] [address] Sep, [facility] [place] [address] [place] [address] Sep, [facility] [place] [address] [place] [address] Sep, Type 1 diabetes mellitus wit h diabetic chronic kidney disease E10.22 ; Type 1 diabetes mellitus with foot ulcer E10.621 ; Non-pressure chronic ulcer of right heel and midfoot with fat layer exposed L97.412 and Morbid obesity E66.01 [facility] [place] [address] [place] [address] Sep, [facility] [place] [address] [place] [address] Sep, [facility] [place] [address] [place] [address] Sep, [facility] [place] [address] [place] [address] Sep, [facility] [address] [id number] [place] [address] Aug, [facility] [place] [address] [place] [address] Aug, [facility] [place] [address] [place] [address] Aug, Osteomyelitis, ankle and seferino t M86.9 and Decubitus ulcer of heel, stage 4 L89.604 [facility] [place] [address] [place] [address] Aug, [facility] [place] [address] [facility] [address] Aug, [facility] [place] [address] [place] [address] Aug, [facility] [place] [address] [place] [address] July, [facility] [place] [facility] [address] [facility] [address] [place] [address] July, Type 1 diabetes mellitus wit h diabetic chronic kidney disease E10.22 [facility] [place] [address] [place] [address] July, [facility] [place] [address] [place] [address] Jun, [facility] [place] [address] [place] [address] Jun, [facility] [place] [address] [place] [address] Jun, Type 1 diabetes mellitus wit h diabetic chronic kidney disease E10.22 and Chronic renal disease, stage III N18.3 [facility] [place] [address] [place] [address] Jun, Type 1 diabetes mellitus wit h diabetic chronic kidney disease E10.22 and Chronic renal disease, stage III N18.3 [facility] [place] [address] [place] [address] Jun, Osteomyelitis, unspecified M 86.9 [facility] [place] [address] [place] [address] Jun, [facility] [place] [facility] [address] [place] [address] Jun, [facility] [place] [address] [place] [address] Jun, [facility] [place] [address] [place] [address] Jun, Morbid (severe) obesity due to excess calories E66.01 ; Dialysis patient Z99.2 ; 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 ; Chronic renal disease, stage III N18.3 ; Single kidney Z90.5 ; Status post below knee amputation of right lower extremity Z89.511 and Diabetic polyneuropathy associated with type 1 diabetes mellitus E10.42 [facility] [place] [address] [place] [address] Jun, [facility] [place] [address] [place] [address] Jun, [facility] [place] [address] [place] [address] Jun, [facility] [place] [address] [place] [address] May, [facility] [place] [facility] [address] [place] [address] May, [facility] [place] [address] [place] [address] May, [facility] [address] [id number] [place] [address] May, [facility] [place] [address] [place] [address] May, Type 1 diabetes mellitus wit h diabetic chronic kidney disease E10.22 and Chronic renal disease, stage III N18.3 [facility] [place] [address] [place] [address] Apr, [facility] [place] [facility] [address] [place] [address] Apr, [facility] [place] [address] [place] [address] Apr, [facility] [address] [id number] [place] [address] Mar, [facility] [address] [id number] [place] [address] Feb, [facility] [address] [id number] [place] [address] Aug, IMMUNIZATIONS No Known Immunizations SOCIAL HISTORY [...]
--- OUTSIDE RECORDS SUMMARY | 2019-08-02 12:21 | XMS REPORT | Continuity of Care Document ---
Author Organization Unknown Address Unknown Phone Unavailable Allergies There is no data. Medications There is no data. 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, STAGE 3 10/27/2018 SELF BECCA THORNTON Ot L97.52 3 NON-PRS CHRONIC ULCER OTH PRT LEFT FOOT 10/27/2018 SELF BECCA THORNTON Ot L97.32 9 NON-PRESSURE CHRONIC ULCER OF LEFT ANKLE 10/27/2018 SELF BECCA THORNTON Ot 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, STAGE 3 11/28/2018 SELF BECCA THORNTON Ot L97.32 9 NON-PRESSURE CHRONIC ULCER OF LEFT ANKLE 11/28/2018 SELF BECCA THORNTON Ot L97.32 9 NON-PRESSURE CHRONIC ULCER OF LEFT ANKLE 12/01/2018 SELF BECCA THORNTON Ot L97.52 3 NON-PRS CHRONIC ULCER OTH PRT LEFT FOOT 12/08/2018 LENCHO MAHARAJ APRN Ot E11.22 TYPE 2 DIABETES MELLITUS W DIABETIC RN LVN 12/08/2018 LENCHO MAHARAJ APRN Ot E11.621 TYPE 2 DIABETES MELLITUS WITH FOOT ULCER 12/08/2018 LENCHO MAHARAJ APRN Ot L97.522 NON-PRS CHRONIC ULCER OTH PRT LEFT FOOT 12/08/2018 LENCHO MAHARAJ APRN Ot N18.6 END STAGE RENAL DISEASE 12/08/2018 LENCHO MAHARAJ APRN Ot Z89.432 ACQUIRED ABSENCE OF LEFT FOOT 12/08/2018 LENCHO MAHARAJ DOG HANDLER OR TRAINER Ot E11.22 TYPE 2 DIABETES MELLITUS W DIABETIC RN LVN 12/08/2018 LENCHO MAHARAJ DOG HANDLER OR TRAINER Ot E11.40 TYPE 2 DIABETES MELLITUS WITH DIABETIC N 12/08/2018 LENCHO MAHARAJ DOG HANDLER OR TRAINER Ot E11.621 TYPE 2 DIABETES MELLITUS WITH FOOT ULCER 12/08/2018 LENCHO MAAHRAJ DOG HANDLER OR TRAINER Ot I12.0 HYP CHR KIDNEY DISEASE W STAGE 5 CHR KID 12/08/2018 LENCHO MAHARAJ DOG HANDLER OR TRAINER Ot L97.522 NON-PRS CHRONIC ULCER OTH PRT LEFT FOOT 12/08/2018 LENCHO MAHARAJ DOG HANDLER OR TRAINER Ot M19.91 PRIMARY OSTEOARTHRITIS, UNSPECIFIED SITE 12/08/2018 LENCHO MAHARAJ DOG HANDLER OR TRAINER Ot N18.6 END STAGE RENAL DISEASE 12/15/2018 LENCHO MAHARAJ DOG HANDLER OR TRAINER Ot E11.22 TYPE 2 DIABETES MELLITUS W DIABETIC RN LVN 12/15/2018 LENCHO MAHARAJ DOG HANDLER OR TRAINER Ot E11.621 TYPE 2 DIABETES MELLITUS WITH FOOT ULCER 12/15/2018 LENCHO MAHARAJ DOG HANDLER OR TRAINER Ot L97.522 NON-PRS CHRONIC ULCER OTH PRT LEFT FOOT 12/15/2018 LENCHO MAHARAJ DOG HANDLER OR TRAINER Ot N18.6 END STAGE RENAL DISEASE 12/17/2018 LENCHO MAHARAJ DOG HANDLER OR TRAINER Ot E11.22 TYPE 2 DIABETES MELLITUS W DIABETIC RN LVN 12/17/2018 LENCHO MAHARAJ DOG HANDLER OR TRAINER Ot E11.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 12/17/2018 LENCHO MAHARAJ DOG HANDLER OR TRAINER Ot E11.621 TYPE 2 DIABETES MELLITUS WITH FOOT ULCER 12/17/2018 LENCHO MAHARAJ DOG HANDLER OR TRAINER Ot L97.522 NON-PRS CHRONIC ULCER OTH PRT LEFT FOOT 12/17/2018 LENCHO MAHARAJ DOG HANDLER OR TRAINER Ot N18.6 END STAGE RENAL DISEASE 12/22/2018 DALLIN UMAÑA MD Ot E11.22 TYPE 2 DIABETES MELLITUS W DIABETIC RN LVN 12/22/2018 DALLIN UMAÑA MD Ot E11.42 TYPE 2 DIABETES MELLITUS WITH DIABETIC P 12/22/2018 DALLIN UMAÑA MD Ot E11.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 12/22/2018 DALLIN UMAÑA MD Ot E11.621 TYPE 2 DIABETES MELLITUS WITH FOOT ULCER 12/22/2018 DALLIN UMAÑA MD Ot E11.65 TYPE 2 DIABETES MELLITUS WITH HYPERGLYCE 12/22/2018 DALLIN UMAÑA MD Ot E66.01 MORBID (SEVERE) OBESITY DUE TO EXCESS CA 12/22/2018 DALLIN UMAÑA MD Ot L97.522 NON-PRS CHRONIC ULCER OTH PRT LEFT FOOT 12/22/2018 DALLIN UMAÑA MD Ot 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, LEFT ANKLE AND FOOT 12/22/2018 DALLIN UMAÑA MD Ot M62 .3 IMMOBILITY SYNDROME (PARAPLEGIC) 12/22/2018 DALLIN UMAÑA MD Ot M86.472 CHRONIC OSTEOMYELITIS W DRAINING SINUS, 12/22/2018 DALLIN UMAÑA MD Ot N18 .6 END STAGE RENAL DISEASE 12/25/2018 LENCHO MAHARAJ DOG HANDLER OR TRAINER Ot E11.22 TYPE 2 DIABETES MELLITUS W DIABETIC RN LVN 12/25/2018 LENCHO MAHARAJ DOG HANDLER OR TRAINER Ot E11.40 TYPE 2 DIABETES MELLITUS WITH DIABETIC N 12/25/2018 LENCHO MAHARAJ DOG HANDLER OR TRAINER Ot E11.621 TYPE 2 DIABETES MELLITUS WITH FOOT ULCER 12/25/2018 LENCHO MAHARAJ DOG HANDLER OR TRAINER Ot I12.0 HYP CHR KIDNEY DISEASE W STAGE 5 CHR KID 12/25/2018 LENCHO MAHARAJ DOG HANDLER OR TRAINER Ot L97.522 NON-PRS CHRONIC ULCER OTH PRT LEFT FOOT 12/25/2018 LENCHO MAHARAJ DOG HANDLER OR TRAINER Ot M19.91 PRIMARY OSTEOARTHRITIS, UNSPECIFIED SITE 12/25/2018 LENCHO MAHARAJ R DOG HANDLER OR TRAINER Ot N18.6 END STAGE RENAL DISEASE 12/29/2018 LENCHO MAHARAJ DOG HANDLER OR TRAINER Ot E11.22 TYPE 2 DIABETES MELLITUS W DIABETIC RN LVN 12/29/2018 LENCHO MAHARAJ DOG HANDLER OR TRAINER Ot E11.621 TYPE 2 DIABETES MELLITUS WITH FOOT ULCER 12/29/2018 LENCHO MAHARAJ R DOG HANDLER OR TRAINER Ot L97.522 NON-PRS CHRONIC ULCER OTH PRT LEFT FOOT 12/29/2018 LENCHO MAHARAJ R DOG HANDLER OR TRAINER Ot N18.6 END STAGE RENAL DISEASE 12/29/2018 LENCHO MAHARAJ DOG HANDLER OR TRAINER Ot Z89.432 ACQUIRED ABSENCE OF LEFT FOOT 12/31/2018 LENCHO MAHARAJ DOG HANDLER OR TRAINER Ot E11.22 TYPE 2 DIABETES MELLITUS W DIABETIC RN LVN 12/31/2018 LENCHO MAHARAJ DOG HANDLER OR TRAINER Ot E11.621 TYPE 2 DIABETES MELLITUS WITH FOOT ULCER 12/31/2018 CAROL ANN, LENCHO R DOG HANDLER OR TRAINER Ot L97.522 NON-PRS CHRONIC ULCER OTH PRT LEFT FOOT 12/31/2018 CAROL ANN LENCHO R DOG HANDLER OR TRAINER Ot N18.6 END STAGE RENAL DISEASE 01/01/2019 CAROL ANN LENCHO R DOG HANDLER OR TRAINER Ot E11.22 TYPE 2 DIABETES MELLITUS W DIABETIC RN LVN 01/01/2019 CAROL ANN LENCHO R DOG HANDLER OR TRAINER Ot E11.621 TYPE 2 DIABETES MELLITUS WITH FOOT ULCER 01/01/2019 CAROL ANN LENCHO R DOG HANDLER OR TRAINER Ot L97.522 NON-PRS CHRONIC ULCER OTH PRT LEFT FOOT 01/01/2019 CAROL ANN LENCHO R DOG HANDLER OR TRAINER Ot M65.88 OTHER SYNOVITIS AND TENOSYNOVITIS, OTHER 01/01/2019 CAROL ANN LENCHO R DOG HANDLER OR TRAINER Ot M85.88 OTH DISRD OF BONE DENSITY AND STRUCTURE, 01/01/2019 CAROL ANN LENCHO R DOG HANDLER OR TRAINER Ot M87.9 OSTEONECROSIS, UNSPECIFIED 01/01/2019 CAROL ANNLENCHO R DOG HANDLER OR TRAINER Ot N18.6 END STAGE RENAL DISEASE 01/04/2019 LENCHO MAHARAJ R DOG HANDLER OR TRAINER Ot E11.22 TYPE 2 DIABETES MELLITUS W DIABETIC RN LVN 01/04/2019 CAROL ANN LENCHO R DOG HANDLER OR TRAINER Ot E11.621 TYPE 2 DIABETES MELLITUS WITH FOOT ULCER 01/04/2019 CAROL ANN LENCHO R DOG HANDLER OR TRAINER Ot L97.522 NON-PRS CHRONIC ULCER OTH PRT LEFT FOOT 01/04/2019 CAROL ANNDAYLINN R DOG HANDLER OR TRAINER Ot M65.88 OTHER SYNOVITIS AND TENOSYNOVITIS, OTHER 01/04/2019 CAROL ANN LENCHO R DOG HANDLER OR TRAINER Ot M85.88 OTH DISRD OF BONE DENSITY AND STRUCTURE, 01/04/2019 LENCHO MAHARAJ R DOG HANDLER OR TRAINER Ot M87.9 OSTEONECROSIS, UNSPECIFIED 01/04/2019 CAROL ANN LENCHO R DOG HANDLER OR TRAINER Ot N18.6 END STAGE RENAL DISEASE 01/09/2019 DALLIN UMAÑA MD Ot E11.22 TYPE 2 DIABETES MELLITUS W DIABETIC RN LVN 01/09/2019 DALLIN UMAÑA MD Ot E11.42 TYPE 2 DIABETES MELLITUS WITH DIABETIC P 01/09/2019 DALLIN UMAÑA MD Ot E11.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 01/09/2019 DALLIN UMAÑA MD Ot E11.621 TYPE 2 DIABETES MELLITUS WITH FOOT ULCER 01/09/2019 DALLIN UMAÑA MD Ot E11.65 TYPE 2 DIABETES MELLITUS WITH HYPERGLYCE 01/09/2019 DALLIN UMAÑA MD Ot E62 .3 01/09/2019 DALLIN UMAÑA MD, Ot E66.01 MORBID (SEVERE) OBESITY DUE TO EXCESS CA 01/09/2019 DALLIN UMAÑA MD, Ot L97.424 NON-PRS CHRONIC ULCER OF LEFT HEEL AND M 01/09/2019 DALLIN UMAÑA MD, Ot L97.522 NON-PRS CHRONIC ULCER OTH PRT LEFT FOOT 01/09/2019 DALLIN UMAÑA MD, Ot 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, LEFT ANKLE AND FOOT 01/09/2019 DALLIN UMAÑA MD, Ot M62 .3 IMMOBILITY SYNDROME (PARAPLEGIC) 01/09/2019 DALLIN UMAÑA MD, Ot M86.472 CHRONIC OSTEOMYELITIS W DRAINING SINUS, 01/09/2019 DALLIN UMAÑA MD, Ot N18 .6 END STAGE RENAL DISEASE 01/20/2019 LENCHO MAHARAJ APRN Ot E11.22 TYPE 2 DIABETES MELLITUS W DIABETIC RN LVN 01/20/2019 LENCHO MAHARAJ APRN Ot E11.621 TYPE 2 DIABETES MELLITUS WITH FOOT ULCER 01/20/2019 LENCHO MAHARAJ DOG HANDLER OR TRAINER Ot L97.522 NON-PRS CHRONIC ULCER OTH PRT LEFT FOOT 01/20/2019 LENCHO MAHARAJ APRN Ot M65.88 OTHER SYNOVITIS AND TENOSYNOVITIS, OTHER 01/20/2019 LENCHO MAHARAJ DOG HANDLER OR TRAINER Ot M85.88 OTH DISRD OF BONE DENSITY AND STRUCTURE, 01/20/2019 LENCHO MAHARAJ DOG HANDLER OR TRAINER Ot M87.9 OSTEONECROSIS, UNSPECIFIED 01/20/2019 LENCHO MAHARAJ APRN Ot N18.6 END STAGE RENAL DISEASE 01/20/2019 DALLIN UMAÑA MD, Ot E11.22 TYPE 2 DIABETES MELLITUS W DIABETIC RN LVN 01/20/2019 DALLIN UMAÑA MD, Ot E11.42 TYPE 2 DIABETES MELLITUS WITH DIABETIC P 01/20/2019 DALLIN UMAÑA MD, Ot E11.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 01/20/2019 DALLIN UMAÑA MD, Ot E11.621 TYPE 2 DIABETES MELLITUS WITH FOOT ULCER 01/20/2019 DALLIN UMAÑA MD Ot E11.65 TYPE 2 DIABETES MELLITUS WITH HYPERGLYCE 01/20/2019 DALLIN UMAÑA MD, Ot E66.01 MORBID (SEVERE) OBESITY DUE TO EXCESS CA 01/20/2019 DALLIN UMAÑA MD, Ot L97.424 NON-PRS CHRONIC ULCER OF LEFT HEEL AND M 01/20/2019 DALLIN UMAÑA MD, Ot L97.522 NON-PRS CHRONIC ULCER OTH PRT LEFT FOOT 01/20/2019 DALLIN UMAÑA MD, Ot 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, LEFT ANKLE AND FOOT 01/20/2019 DALLIN UMAÑA MD, Ot M62 .3 IMMOBILITY SYNDROME (PARAPLEGIC) 01/20/2019 DALLIN UMAÑA MD, Ot M86.472 CHRONIC OSTEOMYELITIS W DRAINING SINUS, 01/20/2019 DALLIN UMAÑA MD, Ot N18 .6 END STAGE RENAL DISEASE 01/26/2019 DALLIN UMAÑA MD, Ot 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) 01/26/2019 DALLIN UMAÑA MD, Ot E11.22 TYPE 2 DIABETES MELLITUS W DIABETIC RN LVN 01/26/2019 DALLIN UMAÑA MD, Ot E11.42 TYPE 2 DIABETES MELLITUS WITH DIABETIC P 01/26/2019 DALLIN UMAÑA MD, Ot E11.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 01/26/2019 DALLIN UMAÑA MD, Ot 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 01/26/2019 DALLIN UMAÑA MD, Ot E11.621 TYPE 2 DIABETES MELLITUS WITH FOOT ULCER 01/26/2019 DALLIN UMAÑA MD, Ot E11.65 TYPE 2 DIABETES MELLITUS WITH HYPERGLYCE 01/26/2019 DALLIN UMAÑA MD, Ot E66.01 MORBID (SEVERE) OBESITY DUE TO EXCESS CA 01/26/2019 DALLIN UMAÑA MD, Ot I96 GANGRENE, NOT ELSEWHERE CLASSIFIED 01/26/2019 DALLIN UMAÑA MD, Ot L97.424 NON-PRS CHRONIC ULCER OF LEFT HEEL AND M 01/26/2019 DALLIN UMAÑA MD, Ot M62 .3 IMMOBILITY SYNDROME (PARAPLEGIC) 01/26/2019 DALLIN UMAÑA MD, Ot M86.472 CHRONIC OSTEOMYELITIS W DRAINING SINUS, 01/26/2019 DALLIN UMAÑA MD, Ot N18 .6 END STAGE RENAL DISEASE 02/03/2019 DALLIN UMAÑA MD, Ot E11.22 TYPE 2 DIABETES MELLITUS W DIABETIC RN LVN 02/03/2019 DALLIN UMAÑA MD, Ot E11.42 TYPE 2 DIABETES MELLITUS WITH DIABETIC P 02/03/2019 DALLIN UMAÑA MD, Ot E11.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 02/03/2019 DALLIN UMAÑA MD, Ot E11.621 TYPE 2 DIABETES MELLITUS WITH FOOT ULCER 02/03/2019 DALLIN UMAÑA MD, Ot E11.65 TYPE 2 DIABETES MELLITUS WITH HYPERGLYCE 02/03/2019 DALLIN UMAÑA MD, Ot E66.01 MORBID (SEVERE) OBESITY DUE TO EXCESS CA 02/03/2019 DALLIN UMAÑA MD, Ot L97.424 NON-PRS CHRONIC ULCER OF LEFT HEEL AND M 02/03/2019 DALLIN UMAÑA MD, Ot L97.522 NON-PRS CHRONIC ULCER OTH PRT LEFT FOOT 02/03/2019 DALLIN UMAÑA MD, Ot 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, LEFT ANKLE AND FOOT 02/03/2019 DALLIN UMAÑA MD, Ot M62 .3 IMMOBILITY SYNDROME (PARAPLEGIC) 02/03/2019 DALLIN UMAÑA MD, Ot M86.472 CHRONIC OSTEOMYELITIS W DRAINING SINUS, 02/03/2019 DALLIN UMAÑA MD, Ot N18 .6 END STAGE RENAL DISEASE 02/04/2019 BECCA MARKHAM MD, Ot L97.52 3 NON-PRS CHRONIC ULCER OTH PRT LEFT FOOT 02/04/2019 DALLIN UMAÑA MD, Ot 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) 02/04/2019 DALLIN UMAÑA MD, Ot E11.22 TYPE 2 DIABETES MELLITUS W DIABETIC RN LVN 02/04/2019 DALLIN UMAÑA MD, Ot E11.42 TYPE 2 DIABETES MELLITUS WITH DIABETIC P 02/04/2019 DALLIN UMAÑA MD, Ot E11.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 02/04/2019 DALLIN UMAÑA MD, Ot 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 02/04/2019 DALLIN UMAÑA MD, Ot E11.621 TYPE 2 DIABETES MELLITUS WITH FOOT ULCER 02/04/2019 DALLIN UMAÑA MD, Ot E11.65 TYPE 2 DIABETES MELLITUS WITH HYPERGLYCE 02/04/2019 DALLIN UMAÑA MD, Ot E66.01 MORBID (SEVERE) OBESITY DUE TO EXCESS CA 02/04/2019 DALLIN UMAÑA MD Ot I96 GANGRENE, NOT ELSEWHERE CLASSIFIED 02/04/2019 DALLIN UMAÑA MD, Ot L97.424 NON-PRS CHRONIC ULCER OF LEFT HEEL AND M 02/04/2019 DALLIN UMAÑA MD, Ot M62 .3 IMMOBILITY SYNDROME (PARAPLEGIC) 02/04/2019 DALLIN UMAÑA MD, Ot M86.472 CHRONIC OSTEOMYELITIS W DRAINING SINUS, 02/04/2019 DALLIN UMAÑA MD, Ot N18 .6 END STAGE RENAL DISEASE 02/09/2019 DALLIN UMAÑA MD, Ot E11.22 TYPE 2 DIABETES MELLITUS W DIABETIC RN LVN 02/09/2019 DALLIN UMAÑA MD, Ot E11.42 TYPE 2 DIABETES MELLITUS WITH DIABETIC P 02/09/2019 DALLIN UMAÑA MD, Ot E11.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 02/09/2019 DALLIN UMAÑA MD, Ot E11.621 TYPE 2 DIABETES MELLITUS WITH FOOT ULCER 02/09/2019 DALLIN UMAÑA MD, Ot E11.65 TYPE 2 DIABETES MELLITUS WITH HYPERGLYCE 02/09/2019 DALLIN UMAÑA MD, Ot E66.01 MORBID (SEVERE) OBESITY DUE TO EXCESS CA 02/09/2019 DALLIN UMAÑA MD, Ot L97.424 NON-PRS CHRONIC ULCER OF LEFT HEEL AND M 02/09/2019 DALLIN UMAÑA MD, Ot 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, LEFT ANKLE AND FOOT 02/09/2019 DALLIN UMAÑA MD, Ot M62 .3 IMMOBILITY SYNDROME (PARAPLEGIC) 02/09/2019 DALLIN UMAÑA MD, Ot M86.472 CHRONIC OSTEOMYELITIS W DRAINING SINUS, 02/09/2019 DALLIN UMAÑA MD, Ot N18 .6 END STAGE RENAL DISEASE 02/12/2019 DALLIN UMAÑA MD, Ot E11.22 TYPE 2 DIABETES MELLITUS W DIABETIC RN LVN 02/12/2019 DALLIN UMAÑA MD, Ot E11.42 TYPE 2 DIABETES MELLITUS WITH DIABETIC P 02/12/2019 DALLIN UMAÑA MD, Ot E11.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 02/12/2019 DALLIN UMAÑA MD, Ot E11.621 TYPE 2 DIABETES MELLITUS WITH FOOT ULCER 02/12/2019 DALLIN UMAÑA MD, Ot E11.65 TYPE 2 DIABETES MELLITUS WITH HYPERGLYCE 02/12/2019 DALLIN UMAÑA MD, Ot E66.01 MORBID (SEVERE) OBESITY DUE TO EXCESS CA 02/12/2019 DALLIN UMAÑA MD, Ot L97.424 NON-PRS CHRONIC ULCER OF LEFT HEEL AND M 02/12/2019 DALLIN UMAÑA MD, Ot 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, LEFT ANKLE AND FOOT 02/12/2019 DALLIN UMAÑA MD, Ot M62 .3 IMMOBILITY SYNDROME (PARAPLEGIC) 02/12/2019 DALLIN UMAÑA MD, Ot M86.472 CHRONIC OSTEOMYELITIS W DRAINING SINUS, 02/12/2019 DALLIN UMAÑA MD, Ot N18 .6 END STAGE RENAL DISEASE 02/17/2019 LEN GARCIA MD Ot E11.21 TYPE 2 DIABETES MELLITUS WITH DIABETIC N 02/17/2019 LEN GARCIA MD Ot E11.40 TYPE 2 DIABETES MELLITUS WITH DIABETIC N 02/17/2019 LEN GARCIA MD Ot E11.51 TYPE 2 DIABETES W DIABETIC PERIPHERAL AN 02/17/2019 LEN GARCIA MD Ot E11.65 TYPE 2 DIABETES MELLITUS WITH HYPERGLYCE 02/17/2019 LEN GARCIA MD Ot E66.9 OBESITY, UNSPECIFIED 02/18/2019 DALLIN UMAÑA MD, Ot E11.22 TYPE 2 DIABETES MELLITUS W DIABETIC RN LVN 02/18/2019 DALLIN UMAÑA MD, Ot E11.42 TYPE 2 DIABETES MELLITUS WITH DIABETIC P 02/18/2019 DALLIN UMAÑA MD, Ot E11.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 02/18/2019 DALLIN UMAÑA MD, Ot E11.621 TYPE 2 DIABETES MELLITUS WITH FOOT ULCER 02/18/2019 DALLIN UMAÑA MD, Ot E11.65 TYPE 2 DIABETES MELLITUS WITH HYPERGLYCE 02/18/2019 DALLIN UMAÑA MD, Ot E66.01 MORBID (SEVERE) OBESITY DUE TO EXCESS CA 02/18/2019 DALLIN UMAÑA MD, Ot L97.424 NON-PRS CHRONIC ULCER OF LEFT HEEL AND M 02/18/2019 DALLIN UMAÑA MD, Ot 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, LEFT ANKLE AND FOOT 02/18/2019 DALLIN UMAÑA MD, Ot M62 .3 IMMOBILITY SYNDROME (PARAPLEGIC) 02/18/2019 DALLIN UMAÑA MD, Ot M86.472 CHRONIC OSTEOMYELITIS W DRAINING SINUS, 02/18/2019 DALLIN UMAÑA MD, Ot N18 .6 END STAGE RENAL DISEASE 02/23/2019 BECCA MARKHAM MD, Ot L97.52 3 NON-PRS CHRONIC ULCER OTH PRT LEFT FOOT 02/23/2019 BECCA MARKHAM MD Ot L97.52 3 NON-PRS CHRONIC ULCER OTH PRT LEFT FOOT 02/25/2019 BECCA MARKHAM MD Ot L97.52 3 NON-PRS CHRONIC ULCER OTH PRT LEFT FOOT 02/27/2019 DALLIN UMAÑA MD, Ot E11.22 TYPE 2 DIABETES MELLITUS W DIABETIC RN LVN 02/27/2019 DALLIN UMAÑA MD, Ot E11.42 TYPE 2 DIABETES MELLITUS WITH DIABETIC P 02/27/2019 DALLIN UMAÑA MD, Ot E11.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 02/27/2019 DALLIN UMAÑA MD, Ot E11.621 TYPE 2 DIABETES MELLITUS WITH FOOT ULCER 02/27/2019 DALLIN UMAÑA MD, Ot E11.65 TYPE 2 DIABETES MELLITUS WITH HYPERGLYCE 02/27/2019 DALLIN UMAÑA MD, Ot E66.01 MORBID (SEVERE) OBESITY DUE TO EXCESS CA 02/27/2019 DALLIN UMAÑA MD, Ot L97.424 NON-PRS CHRONIC ULCER OF LEFT HEEL AND M 02/27/2019 DALLIN UMAÑA MD, Ot 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, LEFT ANKLE AND FOOT 02/27/2019 DALLIN UMAÑA MD, Ot M62 .3 IMMOBILITY SYNDROME (PARAPLEGIC) 02/27/2019 DALLIN UMAÑA MD, Ot M86.472 CHRONIC OSTEOMYELITIS W DRAINING SINUS, 02/27/2019 DALLIN UMAÑA MD, Ot N18 .6 END STAGE RENAL DISEASE 03/20/2019 SELF BECCA THORNTON Ot L97.52 3 NON-PRS CHRONIC ULCER OTH PRT LEFT FOOT 04/03/2019 SELF BECCA THORNTON Ot L97.52 3 NON-PRS CHRONIC ULCER OTH PRT LEFT FOOT 04/03/2019 SELF BECCA THORNTON Ot L97.32 9 NON-PRESSURE CHRONIC ULCER OF LEFT ANKLE 04/03/2019 BECCA MARKHAM MD Ot 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, STAGE 3 04/03/2019 LENCHO MAHARAJ APRN Ot E11.22 TYPE 2 DIABETES MELLITUS W DIABETIC RN LVN 04/03/2019 LENCHO MAHARAJ APRN Ot E11.40 TYPE 2 DIABETES MELLITUS WITH DIABETIC N 04/03/2019 LENCHO MAHARAJ APRN Ot E11.621 TYPE 2 DIABETES MELLITUS WITH FOOT ULCER 04/03/2019 LENCHO MAHARAJ APRN Ot I12.0 HYP CHR KIDNEY DISEASE W STAGE 5 CHR KID 04/03/2019 LENCHO MAHARAJ APRN Ot L97.522 NON-PRS CHRONIC ULCER OTH PRT LEFT FOOT 04/03/2019 CAROL ANN, LENCHO R DOG HANDLER OR TRAINER Ot M19.91 PRIMARY OSTEOARTHRITIS, UNSPECIFIED SITE 04/03/2019 CAROL ANN, LENCHO R DOG HANDLER OR TRAINER Ot N18.6 END STAGE RENAL DISEASE 04/03/2019 CAROL ANN, LENCHO R DOG HANDLER OR TRAINER Ot E11.22 TYPE 2 DIABETES MELLITUS W DIABETIC RN LVN 04/03/2019 CAROL ANN, LENCHO R DOG HANDLER OR TRAINER Ot E11.621 TYPE 2 DIABETES MELLITUS WITH FOOT ULCER 04/03/2019 CAROL ANN LENCHO R DOG HANDLER OR TRAINER Ot L97.522 NON-PRS CHRONIC ULCER OTH PRT LEFT FOOT 04/03/2019 CAROL ANN, LENCHO R DOG HANDLER OR TRAINER Ot N18.6 END STAGE RENAL DISEASE 04/03/2019 CAROL ANN, LENCHO R DOG HANDLER OR TRAINER Ot Z89.432 ACQUIRED ABSENCE OF LEFT FOOT 04/03/2019 CAROL ANN LENCHO R DOG HANDLER OR TRAINER Ot E11.22 TYPE 2 DIABETES MELLITUS W DIABETIC RN LVN 04/03/2019 CAROL ANN LENCHO R DOG HANDLER OR TRAINER Ot E11.621 TYPE 2 DIABETES MELLITUS WITH FOOT ULCER 04/03/2019 CAROL ANN LENCHO R DOG HANDLER OR TRAINER Ot L97.522 NON-PRS CHRONIC ULCER OTH PRT LEFT FOOT 04/03/2019 CAROL ANN LENCHO R DOG HANDLER OR TRAINER Ot N18.6 END STAGE RENAL DISEASE 04/03/2019 CAROL ANN, LENCHO R DOG HANDLER OR TRAINER Ot E11.22 TYPE 2 DIABETES MELLITUS W DIABETIC RN LVN 04/03/2019 CAROL ANN, LENCHO R DOG HANDLER OR TRAINER Ot E11.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 04/03/2019 CAROL ANN LENCHO R DOG HANDLER OR TRAINER Ot E11.621 TYPE 2 DIABETES MELLITUS WITH FOOT ULCER 04/03/2019 CAROL ANN LENCHO R DOG HANDLER OR TRAINER Ot L97.522 NON-PRS CHRONIC ULCER OTH PRT LEFT FOOT 04/03/2019 CAROL ANN LENCHO R DOG HANDLER OR TRAINER Ot N18.6 END STAGE RENAL DISEASE 04/03/2019 CAROL ANN, LENCHO R DOG HANDLER OR TRAINER Ot E11.22 TYPE 2 DIABETES MELLITUS W DIABETIC RN LVN 04/03/2019 CAROL ANN, LENCHO R DOG HANDLER OR TRAINER Ot E11.621 TYPE 2 DIABETES MELLITUS WITH FOOT ULCER 04/03/2019 CAROL ANN, LENCHO R DOG HANDLER OR TRAINER Ot L97.522 NON-PRS CHRONIC ULCER OTH PRT LEFT FOOT 04/03/2019 CAROL ANN LENCHO R DOG HANDLER OR TRAINER Ot M65.88 OTHER SYNOVITIS AND TENOSYNOVITIS, OTHER 04/03/2019 CAROL ANN LENCHO R DOG HANDLER OR TRAINER Ot M85.88 OTH DISRD OF BONE DENSITY AND STRUCTURE, 04/03/2019 LENCHO MAHARAJ APRN Ot M87.9 OSTEONECROSIS, UNSPECIFIED 04/03/2019 LENCHO MAHARAJ APRN Ot N18.6 END STAGE RENAL DISEASE 04/03/2019 DALLIN UMAÑA MD, Ot E11.22 TYPE 2 DIABETES MELLITUS W DIABETIC RN LVN 04/03/2019 DALLIN UMAÑA MD, Ot E11.42 TYPE 2 DIABETES MELLITUS WITH DIABETIC P 04/03/2019 DALLIN UMAÑA MD, Ot E11.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 04/03/2019 DALLIN UMAÑA MD, Ot E11.621 TYPE 2 DIABETES MELLITUS WITH FOOT ULCER 04/03/2019 DALLIN UMAÑA MD, Ot E11.65 TYPE 2 DIABETES MELLITUS WITH HYPERGLYCE 04/03/2019 DALLIN UMAÑA MD, Ot E66.01 MORBID (SEVERE) OBESITY DUE TO EXCESS CA 04/03/2019 DALLIN UMAÑA MD, Ot L97.522 NON-PRS CHRONIC ULCER OTH PRT LEFT FOOT 04/03/2019 DALLIN UMAÑA MD, Ot 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, LEFT ANKLE AND FOOT 04/03/2019 DALLIN UMAÑA MD, Ot M62 .3 IMMOBILITY SYNDROME (PARAPLEGIC) 04/03/2019 DALLIN UMAÑA MD, Ot M86.472 CHRONIC OSTEOMYELITIS W DRAINING SINUS, 04/03/2019 DALLIN UMAÑA MD, Ot N18 .6 END STAGE RENAL DISEASE 04/03/2019 LEN GARCIA MD Ot E11.21 TYPE 2 DIABETES MELLITUS WITH DIABETIC N 04/03/2019 LEN GARCIA MD Ot E11.40 TYPE 2 DIABETES MELLITUS WITH DIABETIC N 04/03/2019 LEN GARCIA MD Ot E11.51 TYPE 2 DIABETES W DIABETIC PERIPHERAL AN 04/03/2019 LEN GARCIA MD Ot E11.65 TYPE 2 DIABETES MELLITUS WITH HYPERGLYCE 04/03/2019 LEN GARCIA MD Ot E66.9 OBESITY, UNSPECIFIED 04/03/2019 DALLIN UMAÑA MD, Ot E11.22 TYPE 2 DIABETES MELLITUS W DIABETIC RN LVN 04/03/2019 DALLIN UMAÑA MD, Ot E11.42 TYPE 2 DIABETES MELLITUS WITH DIABETIC P 04/03/2019 DALLIN UMAÑA MD Ot E11.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 04/03/2019 LEEROY MD, DALLIN G Ot E11.621 TYPE 2 DIABETES MELLITUS WITH FOOT ULCER 04/03/2019 DALLIN UMAÑA MD, Ot E11.65 TYPE 2 DIABETES MELLITUS WITH HYPERGLYCE 04/03/2019 DALLIN UMAÑA MD, Ot E66.01 MORBID (SEVERE) OBESITY DUE TO EXCESS CA 04/03/2019 DALLIN UMAÑA MD, Ot L97.522 NON-PRS CHRONIC ULCER OTH PRT LEFT FOOT 04/03/2019 DALLIN UMAÑA MD, Ot 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, LEFT ANKLE AND FOOT 04/03/2019 DALLIN UMAÑA MD, Ot M62 .3 IMMOBILITY SYNDROME (PARAPLEGIC) 04/03/2019 DALLIN UMAÑA MD, Ot M86.472 CHRONIC OSTEOMYELITIS W DRAINING SINUS, 04/03/2019 DALLIN UMAÑA MD, Ot N18 .6 END STAGE RENAL DISEASE 04/03/2019 DALLIN UMAÑA MD, Ot E11.22 TYPE 2 DIABETES MELLITUS W DIABETIC RN LVN 04/03/2019 DALLIN UMAÑA MD, Ot E11.42 TYPE 2 DIABETES MELLITUS WITH DIABETIC P 04/03/2019 DALLIN UMAÑA MD, Ot E11.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 04/03/2019 DALLIN UMAÑA MD, Ot E11.621 TYPE 2 DIABETES MELLITUS WITH FOOT ULCER 04/03/2019 DALLIN UMAÑA MD, Ot E11.65 TYPE 2 DIABETES MELLITUS WITH HYPERGLYCE 04/03/2019 DALLIN UMAÑA MD, Ot E66.01 MORBID (SEVERE) OBESITY DUE TO EXCESS CA 04/03/2019 DALLIN UMAÑA MD, Ot L97.424 NON-PRS CHRONIC ULCER OF LEFT HEEL AND M 04/03/2019 DALLIN UMAÑA MD, Ot L97.522 NON-PRS CHRONIC ULCER OTH PRT LEFT FOOT 04/03/2019 DALLIN UMAÑA MD, Ot 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, LEFT ANKLE AND FOOT 04/03/2019 DALLIN UMAÑA MD, Ot M62 .3 IMMOBILITY SYNDROME (PARAPLEGIC) 04/03/2019 DALLIN UMAÑA MD, Ot M86.472 CHRONIC OSTEOMYELITIS W DRAINING SINUS, 04/03/2019 DALLIN UMAÑA MD, Ot N18 .6 END STAGE RENAL DISEASE 04/03/2019 DALLIN UMAÑA MD, Ot 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) 04/03/2019 LEEROY MD, DALLIN G Ot E11.22 TYPE 2 DIABETES MELLITUS W DIABETIC RN LVN 04/03/2019 DALLIN UMAÑA MD Ot E11.42 TYPE 2 DIABETES MELLITUS WITH DIABETIC P 04/03/2019 DALLIN UMAÑA MD, Ot E11.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 04/03/2019 DALLIN UMAÑA MD, Ot 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 04/03/2019 DALLIN UMAÑA MD, Ot E11.621 TYPE 2 DIABETES MELLITUS WITH FOOT ULCER 04/03/2019 DALLIN UMAÑA MD, Ot E11.65 TYPE 2 DIABETES MELLITUS WITH HYPERGLYCE 04/03/2019 DALLIN UMAÑA MD, Ot E66.01 MORBID (SEVERE) OBESITY DUE TO EXCESS CA 04/03/2019 DALLIN UMAÑA MD, Ot I96 GANGRENE, NOT ELSEWHERE CLASSIFIED 04/03/2019 DALLIN UMAÑA MD, Ot L97.424 NON-PRS CHRONIC ULCER OF LEFT HEEL AND M 04/03/2019 DALLIN UMAÑA MD, Ot M62 .3 IMMOBILITY SYNDROME (PARAPLEGIC) 04/03/2019 DALLIN UMAÑA MD, Ot M86.472 CHRONIC OSTEOMYELITIS W DRAINING SINUS, 04/03/2019 DALLIN UMAÑA MD, Ot N18 .6 END STAGE RENAL DISEASE 04/03/2019 DALLIN UMAÑA MD, Ot E11.22 TYPE 2 DIABETES MELLITUS W DIABETIC RN LVN 04/03/2019 DALLIN UMAÑA MD, Ot E11.42 TYPE 2 DIABETES MELLITUS WITH DIABETIC P 04/03/2019 DALLIN UMAÑA MD, Ot E11.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 04/03/2019 DALLIN UMAÑA MD, Ot E11.621 TYPE 2 DIABETES MELLITUS WITH FOOT ULCER 04/03/2019 DALLIN UMAÑA MD, Ot E11.65 TYPE 2 DIABETES MELLITUS WITH HYPERGLYCE 04/03/2019 DALLIN UMAÑA MD, Ot E66.01 MORBID (SEVERE) OBESITY DUE TO EXCESS CA 04/03/2019 DALLIN UMAÑA MD, Ot L97.424 NON-PRS CHRONIC ULCER OF LEFT HEEL AND M 04/03/2019 DALLIN UMAÑA MD, Ot 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, LEFT ANKLE AND FOOT 04/03/2019 DALLIN UMAÑA MD, Ot M62 .3 IMMOBILITY SYNDROME (PARAPLEGIC) 04/03/2019 DALLIN UMAÑA MD, Ot M86.472 CHRONIC OSTEOMYELITIS W DRAINING SINUS, 04/03/2019 DALLIN UMAÑA MD, Ot N18 .6 END STAGE RENAL DISEASE 04/03/2019 DALLIN UMAÑA MD, Ot E11.22 TYPE 2 DIABETES MELLITUS W DIABETIC RN LVN 04/03/2019 DALLIN UMAÑA MD, Ot E11.42 TYPE 2 DIABETES MELLITUS WITH DIABETIC P 04/03/2019 DALLIN UMAÑA MD, Ot E11.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 04/03/2019 DALLIN UMAÑA MD, Ot E11.621 TYPE 2 DIABETES MELLITUS WITH FOOT ULCER 04/03/2019 DALLIN UMAÑA MD, Ot E11.65 TYPE 2 DIABETES MELLITUS WITH HYPERGLYCE 04/03/2019 DALLIN UMAÑA MD, Ot E66.01 MORBID (SEVERE) OBESITY DUE TO EXCESS CA 04/03/2019 DALLIN UMAÑA MD, Ot L97.424 NON-PRS CHRONIC ULCER OF LEFT HEEL AND M 04/03/2019 DALLIN UMAÑA MD, Ot 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, LEFT ANKLE AND FOOT 04/03/2019 DALLIN UMAÑA MD, Ot M62 .3 IMMOBILITY SYNDROME (PARAPLEGIC) 04/03/2019 DALLIN UMAÑA MD, Ot M86.472 CHRONIC OSTEOMYELITIS W DRAINING SINUS, 04/03/2019 DALLIN UMAÑA MD, Ot N18 .6 END STAGE RENAL DISEASE 04/03/2019 DALLIN UMAÑA MD, Ot E11.22 TYPE 2 DIABETES MELLITUS W DIABETIC RN LVN 04/03/2019 DALLIN UMAÑA MD, Ot E11.42 TYPE 2 DIABETES MELLITUS WITH DIABETIC P 04/03/2019 DALLIN UMAÑA MD, Ot E11.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 04/03/2019 DALLIN UMAÑA MD, Ot E11.621 TYPE 2 DIABETES MELLITUS WITH FOOT ULCER 04/03/2019 DALLIN UMAÑA MD, Ot E11.65 TYPE 2 DIABETES MELLITUS WITH HYPERGLYCE 04/03/2019 DALLIN UMAÑA MD, Ot E66.01 MORBID (SEVERE) OBESITY DUE TO EXCESS CA 04/03/2019 DALLIN UMAÑA MD, Ot L97.424 NON-PRS CHRONIC ULCER OF LEFT HEEL AND M 04/03/2019 DALLIN UMAÑA MD, Ot 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, LEFT ANKLE AND FOOT 04/03/2019 DALLIN UMAÑA MD, Ot M62 .3 IMMOBILITY SYNDROME (PARAPLEGIC) 04/03/2019 DALLIN UMAÑA MD, Ot M86.472 CHRONIC OSTEOMYELITIS W DRAINING SINUS, 04/03/2019 LEEROY THORNTON, DALLIN Pena Ot N18 .6 END STAGE RENAL DISEASE 04/07/2019 [facility], KRYSTAL Linares APRN Ot K80.20 CALCULUS OF GALLBLADDER W/O CHOLECYSTITI 04/07/2019 [facility] Ot N28.1 CYST OF KIDNEY, ACQUIRED 04/20/[facility] Ot K80.20 CALCULUS OF GALLBLADDER W/O CHOLECYSTITI 04/20/2019 [facility], KRYSTAL Linares APRN Ot N28.1 CYST OF KIDNEY, ACQUIRED 04/21/2019 LEN GARCIA MD Ot E11.21 TYPE 2 DIABETES MELLITUS WITH DIABETIC N 04/21/2019 LEN GARCIA MD Ot E11.40 TYPE 2 DIABETES MELLITUS WITH DIABETIC N 04/21/2019 LEN GARCIA MD Ot E11.51 TYPE 2 DIABETES W DIABETIC PERIPHERAL AN 04/21/2019 JOSE THORNTON, LEN Peters Ot E11.65 TYPE 2 DIABETES MELLITUS WITH HYPERGLYCE 04/21/2019 LEN GARCIA MD Ot E66.9 OBESITY, UNSPECIFIED 05/25/2019 [facility], KRYSTAL Linares APRN Ot K80.20 CALCULUS OF GALLBLADDER W/O CHOLECYSTITI 05/25/2019 [facility], KRYSTAL Linares APRN Ot N28.1 CYST OF KIDNEY, ACQUIRED 05/26/2019 SELF BECCA THORNTON Ot L97.52 3 NON-PRS CHRONIC ULCER OTH PRT LEFT FOOT 05/26/2019 SELF BECCA THORNTON Ot L97.32 9 NON-PRESSURE CHRONIC ULCER OF LEFT ANKLE 05/26/2019 SELF BECCA THORNTON Ot 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, STAGE 3 05/26/2019 LENCHO MAHARAJ APRN Ot E11.22 TYPE 2 DIABETES MELLITUS W DIABETIC RN LVN 05/26/2019 LENCHO MAHARAJ APRN Ot E11.40 TYPE 2 DIABETES MELLITUS WITH DIABETIC N 05/26/2019 LENCHO MAHARAJ APRN Ot E11.621 TYPE 2 DIABETES MELLITUS WITH FOOT ULCER 05/26/2019 LENCHO MAHARAJ APRN Ot I12.0 HYP CHR KIDNEY DISEASE W STAGE 5 CHR KID 05/26/2019 LENCHO MAHARAJ APRN Ot L97.522 NON-PRS CHRONIC ULCER OTH PRT LEFT FOOT 05/26/2019 LENCHO MAHARAJ APRN Ot M19.91 PRIMARY OSTEOARTHRITIS, UNSPECIFIED SITE 05/26/2019 DAYLIN MAHARAJN R DOG HANDLER OR TRAINER Ot N18.6 END STAGE RENAL DISEASE 05/26/2019 DAYLIN MAHARAJN R DOG HANDLER OR TRAINER Ot E11.22 TYPE 2 DIABETES MELLITUS W DIABETIC RN LVN 05/26/2019 CAROL ANN LENCHO R DOG HANDLER OR TRAINER Ot E11.621 TYPE 2 DIABETES MELLITUS WITH FOOT ULCER 05/26/2019 DAYLIN MAHARAJN R DOG HANDLER OR TRAINER Ot L97.522 NON-PRS CHRONIC ULCER OTH PRT LEFT FOOT 05/26/2019 LENCHO MAHARAJ R DOG HANDLER OR TRAINER Ot N18.6 END STAGE RENAL DISEASE 05/26/2019 DAYLIN MAHARAJN R DOG HANDLER OR TRAINER Ot Z89.432 ACQUIRED ABSENCE OF LEFT FOOT 05/26/2019 DAYLIN MAHARAJN R DOG HANDLER OR TRAINER Ot E11.22 TYPE 2 DIABETES MELLITUS W DIABETIC RN LVN 05/26/2019 LENCHO MAHARAJ R DOG HANDLER OR TRAINER Ot E11.621 TYPE 2 DIABETES MELLITUS WITH FOOT ULCER 05/26/2019 LENCHO MAHARAJ R DOG HANDLER OR TRAINER Ot L97.522 NON-PRS CHRONIC ULCER OTH PRT LEFT FOOT 05/26/2019 LENCHO MAHARAJ R DOG HANDLER OR TRAINER Ot N18.6 END STAGE RENAL DISEASE 05/26/2019 DAYLIN MAHARAJN R DOG HANDLER OR TRAINER Ot E11.22 TYPE 2 DIABETES MELLITUS W DIABETIC RN LVN 05/26/2019 DAYLIN MAHARAJN R DOG HANDLER OR TRAINER Ot E11.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 05/26/2019 LENCHO MAHARAJ R DOG HANDLER OR TRAINER Ot E11.621 TYPE 2 DIABETES MELLITUS WITH FOOT ULCER 05/26/2019 LENCHO MAHARAJ R DOG HANDLER OR TRAINER Ot L97.522 NON-PRS CHRONIC ULCER OTH PRT LEFT FOOT 05/26/2019 LENCHO MAHARAJ R DOG HANDLER OR TRAINER Ot N18.6 END STAGE RENAL DISEASE 05/26/2019 DAYLIN MAHARAJN R DOG HANDLER OR TRAINER Ot E11.22 TYPE 2 DIABETES MELLITUS W DIABETIC RN LVN 05/26/2019 CAROL ANN, LENCHO R DOG HANDLER OR TRAINER Ot E11.621 TYPE 2 DIABETES MELLITUS WITH FOOT ULCER 05/26/2019 DAYLIN MAHARAJN R DOG HANDLER OR TRAINER Ot L97.522 NON-PRS CHRONIC ULCER OTH PRT LEFT FOOT 05/26/2019 DAYLIN MAHARAJN R DOG HANDLER OR TRAINER Ot M65.88 OTHER SYNOVITIS AND TENOSYNOVITIS, OTHER 05/26/2019 LENCHO MAHARAJ R DOG HANDLER OR TRAINER Ot M85.88 OTH DISRD OF BONE DENSITY AND STRUCTURE, 05/26/2019 LENCHO MAHARAJ APRN Ot M87.9 OSTEONECROSIS, UNSPECIFIED 05/26/2019 LENCHO MAHARAJ APRN Ot N18.6 END STAGE RENAL DISEASE 05/26/2019 DALLIN UMAÑA MD, Ot E11.22 TYPE 2 DIABETES MELLITUS W DIABETIC RN LVN 05/26/2019 DALLIN UMAÑA MD, Ot E11.42 TYPE 2 DIABETES MELLITUS WITH DIABETIC P 05/26/2019 DALLIN UMÑAA MD, Ot E11.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 05/26/2019 DALLIN UMAÑA MD, Ot E11.621 TYPE 2 DIABETES MELLITUS WITH FOOT ULCER 05/26/2019 DALLIN UMAÑA MD, Ot E11.65 TYPE 2 DIABETES MELLITUS WITH HYPERGLYCE 05/26/2019 DALLIN UMAÑA MD, Ot E66.01 MORBID (SEVERE) OBESITY DUE TO EXCESS CA 05/26/2019 DALLIN UMAÑA MD, Ot L97.522 NON-PRS CHRONIC ULCER OTH PRT LEFT FOOT 05/26/2019 DALLIN UMAÑA MD, Ot 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, LEFT ANKLE AND FOOT 05/26/2019 DALLIN UMAÑA MD, Ot M62 .3 IMMOBILITY SYNDROME (PARAPLEGIC) 05/26/2019 DALLIN UMAÑA MD, Ot M86.472 CHRONIC OSTEOMYELITIS W DRAINING SINUS, 05/26/2019 DALLIN UMAÑA MD, Ot N18 .6 END STAGE RENAL DISEASE 05/26/2019 DALLIN UMAÑA MD, Ot E11.22 TYPE 2 DIABETES MELLITUS W DIABETIC RN LVN 05/26/2019 DALLIN UMAÑA MD, Ot E11.42 TYPE 2 DIABETES MELLITUS WITH DIABETIC P 05/26/2019 DALLIN UMAÑA MD, Ot E11.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 05/26/2019 DALLIN UMAÑA MD, Ot E11.621 TYPE 2 DIABETES MELLITUS WITH FOOT ULCER 05/26/2019 DALLIN UMAÑA MD, Ot E11.65 TYPE 2 DIABETES MELLITUS WITH HYPERGLYCE 05/26/2019 DALLIN UMAÑA MD, Ot E66.01 MORBID (SEVERE) OBESITY DUE TO EXCESS CA 05/26/2019 DALLIN UMAÑA MD, Ot L97.522 NON-PRS CHRONIC ULCER OTH PRT LEFT FOOT 05/26/2019 DALLIN UMAÑA MD, Ot 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, LEFT ANKLE AND FOOT 05/26/2019 DALLIN UMAÑA MD, Ot M62 .3 IMMOBILITY SYNDROME (PARAPLEGIC) 05/26/2019 DALLIN UMAÑA MD, Ot M86.472 CHRONIC OSTEOMYELITIS W DRAINING SINUS, 05/26/2019 DALLIN UMAÑA MD, Ot N18 .6 END STAGE RENAL DISEASE 05/26/2019 DALLIN UMAÑA MD, Ot E11.22 TYPE 2 DIABETES MELLITUS W DIABETIC RN LVN 05/26/2019 DALLIN UMAÑA MD, Ot E11.42 TYPE 2 DIABETES MELLITUS WITH DIABETIC P 05/26/2019 DALLIN UMAÑA MD, Ot E11.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 05/26/2019 DALLIN UMAÑA MD, Ot E11.621 TYPE 2 DIABETES MELLITUS WITH FOOT ULCER 05/26/2019 DALLIN UMAÑA MD, Ot E11.65 TYPE 2 DIABETES MELLITUS WITH HYPERGLYCE 05/26/2019 DALLIN UMAÑA MD, Ot E66.01 MORBID (SEVERE) OBESITY DUE TO EXCESS CA 05/26/2019 DALLIN UMAÑA MD, Ot L97.424 NON-PRS CHRONIC ULCER OF LEFT HEEL AND M 05/26/2019 DALLIN UMAÑA MD, Ot L97.522 NON-PRS CHRONIC ULCER OTH PRT LEFT FOOT 05/26/2019 DALLIN UMAÑA MD, Ot 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, LEFT ANKLE AND FOOT 05/26/2019 DALLIN UMAÑA MD, Ot M62 .3 IMMOBILITY SYNDROME (PARAPLEGIC) 05/26/2019 DALLIN UMAÑA MD, Ot M86.472 CHRONIC OSTEOMYELITIS W DRAINING SINUS, 05/26/2019 DALLIN UMAÑA MD, Ot N18 .6 END STAGE RENAL DISEASE 05/26/2019 DALLIN UMAÑA MD, Ot 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) 05/26/2019 DALLIN UMAÑA MD, Ot E11.22 TYPE 2 DIABETES MELLITUS W DIABETIC RN LVN 05/26/2019 DALLIN UMAÑA MD, Ot E11.42 TYPE 2 DIABETES MELLITUS WITH DIABETIC P 05/26/2019 DALLIN UMAÑA MD, Ot E11.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 05/26/2019 DALLIN UMAÑA MD, Ot 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 05/26/2019 DALLIN UMAAÑ MD, Ot E11.621 TYPE 2 DIABETES MELLITUS WITH FOOT ULCER 05/26/2019 DALLIN UMAÑA MD, Ot E11.65 TYPE 2 DIABETES MELLITUS WITH HYPERGLYCE 05/26/2019 DALLIN UMAÑA MD, Ot E66.01 MORBID (SEVERE) OBESITY DUE TO EXCESS CA 05/26/2019 DALLIN UMAÑA MD, Ot I96 GANGRENE, NOT ELSEWHERE CLASSIFIED 05/26/2019 DALLIN UMAÑA MD, Ot L97.424 NON-PRS CHRONIC ULCER OF LEFT HEEL AND M 05/26/2019 DALLIN UMAÑA MD, Ot M62 .3 IMMOBILITY SYNDROME (PARAPLEGIC) 05/26/2019 DALLIN UMAÑA MD, Ot M86.472 CHRONIC OSTEOMYELITIS W DRAINING SINUS, 05/26/2019 DALLIN UMAÑA MD, Ot N18 .6 END STAGE RENAL DISEASE 05/26/2019 DALLIN UMAÑA MD, Ot E11.22 TYPE 2 DIABETES MELLITUS W DIABETIC RN LVN 05/26/2019 DALLIN UMAÑA MD, Ot E11.42 TYPE 2 DIABETES MELLITUS WITH DIABETIC P 05/26/2019 DALLIN UMAÑA MD, Ot E11.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 05/26/2019 DALLIN UMAÑA MD, Ot E11.621 TYPE 2 DIABETES MELLITUS WITH FOOT ULCER 05/26/2019 DALLIN UMAÑA MD, Ot E11.65 TYPE 2 DIABETES MELLITUS WITH HYPERGLYCE 05/26/2019 DALLIN UMAÑA MD, Ot E66.01 MORBID (SEVERE) OBESITY DUE TO EXCESS CA 05/26/2019 DALLIN UMAÑA MD, Ot L97.424 NON-PRS CHRONIC ULCER OF LEFT HEEL AND M 05/26/2019 DALLIN UMAÑA MD, Ot 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, LEFT ANKLE AND FOOT 05/26/2019 DALLIN UMAÑA MD, Ot M62 .3 IMMOBILITY SYNDROME (PARAPLEGIC) 05/26/2019 DALLIN UMAÑA MD, Ot M86.472 CHRONIC OSTEOMYELITIS W DRAINING SINUS, 05/26/2019 DALLIN UMAÑA MD, Ot N18 .6 END STAGE RENAL DISEASE 05/26/2019 DALLIN UMAÑA MD, Ot E11.22 TYPE 2 DIABETES MELLITUS W DIABETIC RN LVN 05/26/2019 DALLIN UMAÑA MD, Ot E11.42 TYPE 2 DIABETES MELLITUS WITH DIABETIC P 05/26/2019 DALLIN UMAÑA MD, Ot E11.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 05/26/2019 DALLIN UMAÑA MD, Ot E11.621 TYPE 2 DIABETES MELLITUS WITH FOOT ULCER 05/26/2019 LEEROY MD, DALLIN G Ot E11.65 TYPE 2 DIABETES MELLITUS WITH HYPERGLYCE 05/26/2019 DALLIN UMAÑA MD, Ot E66.01 MORBID (SEVERE) OBESITY DUE TO EXCESS CA 05/26/2019 DALLIN UMAÑA MD, Ot L97.424 NON-PRS CHRONIC ULCER OF LEFT HEEL AND M 05/26/2019 DALLIN UMAÑA MD, Ot 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, LEFT ANKLE AND FOOT 05/26/2019 DALLIN UMAÑA MD, Ot M62 .3 IMMOBILITY SYNDROME (PARAPLEGIC) 05/26/2019 DALLIN UMAÑA MD, Ot M86.472 CHRONIC OSTEOMYELITIS W DRAINING SINUS, 05/26/2019 DALLIN UMAÑA MD, Ot N18 .6 END STAGE RENAL DISEASE 05/26/2019 DALLIN UMAÑA MD, Ot E11.22 TYPE 2 DIABETES MELLITUS W DIABETIC RN LVN 05/26/2019 DALLIN UMAÑA MD, Ot E11.42 TYPE 2 DIABETES MELLITUS WITH DIABETIC P 05/26/2019 DALLIN UMAÑA MD, Ot E11.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 05/26/2019 DALLIN UMAÑA MD, Ot E11.621 TYPE 2 DIABETES MELLITUS WITH FOOT ULCER 05/26/2019 DALLIN UMAÑA MD, Ot E11.65 TYPE 2 DIABETES MELLITUS WITH HYPERGLYCE 05/26/2019 DALLIN UMAÑA MD, Ot E66.01 MORBID (SEVERE) OBESITY DUE TO EXCESS CA 05/26/2019 DALLIN UMAÑA MD, Ot L97.424 NON-PRS CHRONIC ULCER OF LEFT HEEL AND M 05/26/2019 DALLIN UMAÑA MD, Ot 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, LEFT ANKLE AND FOOT 05/26/2019 DALLIN UMAÑA MD, Ot M62 .3 IMMOBILITY SYNDROME (PARAPLEGIC) 05/26/2019 DALLIN UMAÑA MD, Ot M86.472 CHRONIC OSTEOMYELITIS W DRAINING SINUS, 05/26/2019 DALLIN UMAÑA MD, Ot N18 .6 END STAGE RENAL DISEASE 05/26/2019 KRYSTAL GAMBINO DOG HANDLER OR TRAINER Ot K80.20 CALCULUS OF GALLBLADDER W/O CHOLECYSTITI 05/26/2019 KRYSTAL GAMBINO APRN Ot N28.1 CYST OF KIDNEY, ACQUIRED 05/26/2019 Ot E11.21 TYP E 2 DIABETES MELLITUS WITH DIABETIC N 05/26/2019 Ot E11.40 TYP E 2 DIABETES MELLITUS WITH DIABETIC N 05/26/2019 Ot E11.51 TYP E 2 DIABETES W DIABETIC PERIPHERAL AN 05/26/2019 Ot E11.65 TYP E 2 DIABETES MELLITUS WITH HYPERGLYCE 05/26/2019 Ot E66.9 OBES ITY, UNSPECIFIED 06/02/2019 SELF BECCA THORNTON Ot G47.33 OBSTRUCTIVE SLEEP APNEA (ADULT) (PEDIATR Procedures There is no data. Results Test Result Range CMP - 06/17/18 10:50 GLUCOSE 298 mg/dL 65-139 UREA NITROGEN (BUN) 57 mg/dL 7-25 CREATININE 3.90 mg/dL 0.70-1.18 eGFR NON-AFR. NICARAGUAN 15 mL/min/1.73m2 > OR = 60 eGFR 17 mL/min/1.73m2 > OR = 60 BUN/CREATININE RATIO 15 (calc) 6-22 SODIUM 135 mmol/L 135-146 POTASSIUM 6.3 mmol/L 3.5-5.3 CHLORIDE 91 mmol/L 98-110 CARBON DIOXIDE 33 mmol/L 20-32 CALCIUM 9.8 mg/dL 8.6-10.3 PROTEIN, TOTAL 7.0 g/dL 6.1-8.1 ALBUMIN 4.2 g/dL 3.6-5.1 GLOBULIN 2.8 g/dL (calc) 1.9-3.7 ALBUMIN/GLOBULIN RATIO 1.5 (calc) 1.0-2. 5 BILIRUBIN, TOTAL 0.5 mg/dL 0.2-1.2 ALKALINE PHOSPHATASE 105 U/L 40-115 AST 16 U/L 10-35 ALT 13 U/L 9-46 MMR TITER - 07/03/18 14:00 RUBELLA ANTIBODY (IGG) 25.90 index NRG MEASLES ANTIBODY (IGG) 101.00 AU/mL NRG MUMPS VIRUS ANTIBODY (IGG) 46.70 AU/mL N RG Bacteria identification in isolate by an aerobe culture - 07/10/18 12:00 Bacteria identification in isolate by anaerobe culture NOANA NR Gram stain microscopy - 07/10/18 12:00 Gram stain microscopy Mixed Bacterial Cynthia NR Bacteria identification in wound by cult ure - 07/10/18 12:00 Bacteria identification in wound by culture [id number] NR FREE TEXT EXTERNAL SUSCEPTIBILITY REPORTED 07-14-18 1205 NRG QUANTITY OF GROWTH Many NR FREE TEXT ENTRY 2 METHICILLIN-SENSITIVE STAPH RADHA US [facility] RML Sensitivity Panel - 07/10/18 12:00 Gentamicin susceptibility test by minimum inhibitory c oncentration > NRG Trimethoprim/sulfamethoxazole susceptibi lity test by minimum inhibitoryconcentration > NRG Levofloxacin susceptibility test by minimum inhibitory concentration <= NRG Ampicillin susceptibility test by minimum inhibitory c oncentration > NRG Cefazolin susceptibility test by minimum inhibitory co ncentration > NRG Ceftriaxone susceptibility test by minimum inhibitory concentration > NRG Piperacillin/tazobactam susceptibility t est by minimum inhibitory concentration = NRG Ciprofloxacin susceptibility test by minimum inhibitor y concentration > NRG Meropenem susceptibility test by minimum inhibitory co ncentration <= NRG Amoxicillin and clavulanate potassium susc MACHO R NRG Imipenem susceptibility test by minimum inhibitory con centration <= NRG RML Sensitivity Panel - 07/10/18 12:00 Oxacillin susceptibility test by minimum inhibitory co ncentration 0.5 NRG Clindamycin susceptibility test by minimum inhibitory concentration <= NRG Erythromycin susceptibility test by minimum inhibitory concentration <= NRG Trimethoprim/sulfamethoxazole susceptibi lity test by minimum inhibitoryconcentration <= NRG Vancomycin susceptibility test by minimum inhibitory c oncentration 1 NRG Levofloxacin susceptibility test by minimum inhibitory concentration <= NRG Rifampin susceptibility test by minimum inhibitory con centration <= NRG Cefazolin susceptibility test by minimum inhibitory co ncentration <= NRG Linezolid susceptibility test by minimum inhibitory co ncentration 2 NRG Penicillin G susceptibility test by minimum inhibitory concentration > NRG Moxifloxacin susceptibility test by minimum inhibitory concentration <= NRG Minocycline susc MACHO <= NRG GLUCOSE, SERUM - 07/14/18 15:00 GLUCOSE 330 mg/dL 65-99 C-PEPTIDE, SERUM - 07/14/18 15:00 C-PEPTIDE 5.42 ng/mL 0.80-3.85 Gram stain microscopy - 08/22/18 00:00 Gram stain microscopy Mixed Bacterial Cynthia NRG Bacteria identification in wound by cult ure - 08/22/18 00:00 Bacteria identification in wound by culture [id number] NRG FREE TEXT EXTERNAL NO BETA STREP, STAPH AUREUS, OR NRG QUANTITY OF GROWTH PREDOMINANCE NRG FREE TEXT ENTRY 2 PSEUDOMONAS ISOLATED NRG Gram stain microscopy - 09/17/18 14:30 Gram stain microscopy Many Gram positive bacilli NRG Bacteria identification in wound by cult ure - 09/17/18 14:30 Bacteria identification in wound by culture [id number] NRG FREE TEXT EXTERNAL NO BETA STREP, STAPH AUREUS, OR NRG QUANTITY OF GROWTH LARGE AMOUNT NRG FREE TEXT ENTRY 2 PSEUDOMONAS ISOLATED NRG Gram stain microscopy - 12/18/18 10:32 Gram stain microscopy No bacteria seen NRG Bacteria identification in wound by cult ure - 12/18/18 10:32 Bacteria identification in wound by culture [id number] NRG FREE TEXT EXTERNAL SUSCEPTIBILITY REPORTED 9, 1 249 NRG QUANTITY OF GROWTH FEW NRG MRSA AGAR NO INDUCIBLE CLINDAMYCIN RESISTANCE NRG FREE TEXT ENTRY 2 RESISTANT ORGANISM/CONTACT PRECA UTIONS NRG CALL POSITIVES (F1 HELP) CALLED TO DREA/WC 12-22-18, 0840/KD NRG PBP2 METHICILLIN RESISTANT STAPH AUREUS NRG Dirithromycin susceptibility test by dis k diffusion - 12/18/18 10:32 Oxacillin susceptibility test by minimum inhibitory co ncentration > NRG Clindamycin susceptibility test by minimum inhibitory concentration <= NRG Erythromycin susceptibility test by minimum inhibitory concentration > NRG Trimethoprim/sulfamethoxazole susceptibi lity test by minimum inhibitoryconcentration <= NRG Vancomycin susceptibility test by minimum inhibitory c oncentration 1 NRG Levofloxacin susceptibility test by minimum inhibitory concentration 4 NRG Rifampin susceptibility test by minimum inhibitory con centration <= NRG Cefazolin susceptibility test by minimum inhibitory co ncentration > NRG Linezolid susceptibility test by minimum inhibitory co ncentration 2 NRG Penicillin G susceptibility test by minimum inhibitory concentration > NRG Moxifloxacin susceptibility test by minimum inhibitory concentration 2 NRG Minocycline susc MACHO <= NRG Dirithromycin susceptibility test by dis k diffusion - 12/18/18 10:32 Vancomycin susceptibility test by minimum inhibitory c oncentration 1 NRG Ampicillin susceptibility test by minimum inhibitory c oncentration 2 NRG Linezolid susceptibility test by minimum inhibitory co ncentration <= NRG Daptomycin susc MACHO 2 NRG LIPID PANEL - 07/24/19 14:33 CHOLESTEROL, TOTAL 185 mg/dL <200 HDL CHOLESTEROL 25 mg/dL > OR = 40 TRIGLYCERIDES 234 mg/dL <150 LDL-CHOLESTEROL 122 mg/dL (calc) NRG CHOL/HDLC RATIO 7.4 (calc) <5.0 NON HDL CHOLESTEROL 160 mg/dL (calc) <13 0 CMP - 07/24/19 14:33 GLUCOSE 108 mg/dL 65-99 UREA NITROGEN (BUN) 19 mg/dL 7-25 CREATININE 3.00 mg/dL 0.70-1.18 eGFR NON-AFR. NICARAGUAN 20 mL/min/1.73m2 > OR = 60 eGFR 23 mL/min/1.73m2 > OR = 60 BUN/CREATININE RATIO 6 (calc) 6-22 SODIUM 141 mmol/L 135-146 POTASSIUM 3.6 mmol/L 3.5-5.3 CHLORIDE 91 mmol/L 98-110 CARBON DIOXIDE 32 mmol/L 20-32 CALCIUM 9.2 mg/dL 8.6-10.3 PROTEIN, TOTAL 7.3 g/dL 6.1-8.1 ALBUMIN 3.3 g/dL 3.6-5.1 GLOBULIN 4.0 g/dL (calc) 1.9-3.7 ALBUMIN/GLOBULIN RATIO 0.8 (calc) 1.0-2. 5 BILIRUBIN, TOTAL 0.6 mg/dL 0.2-1.2 ALKALINE PHOSPHATASE 190 U/L 35-144 AST 34 U/L 10-35 ALT 19 U/L 9-46 CBC - 07/24/19 14:33 WHITE BLOOD CELL COUNT 12.9 Thousand/uL 3.8-10.8 RED BLOOD CELL COUNT 3.64 Million/uL 4.2 0-5.80 HEMOGLOBIN 10.5 g/dL 13.2-17.1 HEMATOCRIT 34.2 % 38.5-50.0 MCV 94.0 fL 80.0-100.0 MCH 28.8 pg 27.0-33.0 MCHC 30.7 g/dL 32.0-36.0 RDW 15.3 % 11.0-15.0 PLATELET COUNT 268 Thousand/uL 140-400 MPV 10.2 fL 7.5-12.5 ABSOLUTE NEUTROPHILS 88080 cells/uL 1500 -7800 ABSOLUTE LYMPHOCYTES 464 cells/uL 850-39 00 ABSOLUTE MONOCYTES 774 cells/uL 200-950 ABSOLUTE EOSINOPHILS 1032 cells/uL 15-50 0 ABSOLUTE BASOPHILS 65 cells/uL 0-200 NEUTROPHILS 81.9 % NRG LYMPHOCYTES 3.6 % NRG MONOCYTES 6.0 % NRG EOSINOPHILS 8.0 % NRG BASOPHILS 0.5 % NRG A1C - 07/24/19 14:33 HEMOGLOBIN A1c 7.3 % of total Hgb <5.7 Encounters ACCT No. Visit Date/Time Discharge Status Pt. Type Provider Facility Loc./Unit Complaint [id number] 05/01/2019 11:00:00 05/01/2019 23:59: 59 CLS Outpatient BECCA MARKHAM [facility] [id number] 07/24/2019 14:30:00 Document Registration [id number] 07/14/2018 15:30:00 Document Registration [id number] 07/03/2018 13:00:00 Document Registration [id number] 06/17/2018 10:48:00 Document Registration [id number] 06/17/2018 10:48:00 Document Registration [id number] 04/30/2019 21:00:00 23:59:59 CLS Preadmit BECCA MARKHAM MD [facility] SLEEP OBSTRUCTIVE SLEEP APNEA [id number] 01/21/2019 12:07:00 00:01:00 DIS Outpatient LEN GARCIA MD [facility] DSME TYPE 2 DIABETES [id number] 04/03/2019 13:41:00 23:59:59 CLS Outpatient KRYSTAL GAMBINO APRN [facility] RAD URINARY RETENTI ON OTHER R33.8 [id number] 02/04/2019 10:10:00 23:59:59 CLS Outpatient DALLIN UMAÑA MD [facility] WOUNDCARE [id number] 01/28/2019 10:14:00 23:59:59 CLS Outpatient DALLIN UMAÑA MD [facility] WOUNDCARE [id number] 01/21/2019 10:23:00 23:59:59 CLS Outpatient DALLIN UMAÑA MD [facility] WOUNDCARE [id number] 01/14/2019 10:26:00 23:59:59 CLS Outpatient DALLIN UMAÑA MD [facility] WOUNDCARE [id number] 12/31/2018 10:39:00 23:59:59 CLS Outpatient DALLIN UMAÑA MD [facility] WOUNDCARE [id number] 12/29/2018 09:51:00 23:59:59 CLS Outpatient LENCHO MAHARAJ APRN [facility] RAD NON PRESSURE CHRONIC UL CER OF LEFT FOOT [id number] 12/24/2018 10:29:00 23:59:59 CLS Outpatient DALLIN UMAÑA MD [facility] WOUNDCARE [id number] 12/18/2018 09:37:00 23:59:59 CLS Outpatient DALLIN UMAÑA MD [facility] WOUNDCARE [id number] 12/11/2018 11:42:00 23:59:59 CLS Outpatient LENCHO MAHARAJ APRN [facility] RAD TYPE 2 DIABETES W/ FOOT ULCER [id number] 12/11/2018 10:56:00 23:59:59 CLS Outpatient LENCHO MAHARAJ APRN [facility] WOUNDCARE [id number] 12/04/2018 10:41:00 23:59:59 CLS Outpatient LENCHO MAHARAJ APRN [facility] RAD E11.621,N18.6 [id number] 12/04/2018 09:14:00 23:59:59 CLS Outpatient LENCHO MAHARAJ APRN [facility] WOUNDCARE [id number] 09/17/2018 14:54:00 23:59:59 CLS Outpatient SELF BECCA THORNTON [facility] LAB FS [id number] 08/22/2018 16:09:00 23:59:59 CLS Outpatient SELF BECCA THORNTON [facility] LAB FS LT LEG ULCER [id number] 07/10/2018 11:00:00 23:59:59 CLS Outpatient SELF BECCA THORNTON [facility] IHC WOUND CULTURE [id number] 04/22/2019 00:00:00 Document Registration
[2019-08-02 12:56] LABS: WHITE BLOOD COUNT 15.6 10^3/uL (4.3-11.0)
[2019-08-02 12:57] LABS: BASOPHILS # (AUTO) 0.1 10^3/uL (0.0-0.1); BASOPHILS % (AUTO) 0 % (0-10); EOSINOPHILS # (AUTO) 0.2 10^3/uL (0.0-0.3); EOSINOPHILS % (AUTO) 2 % (0-10); HEMATOCRIT 27 % (40-54); LYMPHOCYTES # (AUTO) 0.8 X 10^3 (1.0-4.0); LYMPHOCYTES % (AUTO) 5 % (12-44); MEAN CORPUSCULAR HEMOGLOBIN 28 PG (25-34); MEAN CORPUSCULAR HGB CONC 30 G/DL (32-36); MEAN CORPUSCULAR VOLUME 94 FL (80-99); MEAN PLATELET VOLUME 9.8 FL (7.4-10.4); MONOCYTES % (AUTO) 6 % (0-12); NEUTROPHILS # (AUTO) 13.5 X 10^3 (1.8-7.8); NEUTROPHILS % (AUTO) 86 % (42-75); PLATELET COUNT 432 10^3/uL (130-400); RED CELL DISTRIBUTION WIDTH 17.7 % (10.0-14.5)
--- NOTE | 2019-08-02 13:00 | ED GI ---
General Chief Complaint: Abdominal/GI Problems Stated Complaint: N,V,D History of Present Illness Date Seen by Provider: August 02, 2019 Time Seen by Provider: 12:20 Initial Comments Patient is here as a known dialysis patient over last couple days as had nausea and vomiting was at dialysis on Saturday and things seemed to go well but hasn't been keeping much down usually urinates once a day has not done that for several days without bowel movement as well they however not seeming to be concerned yesterday had dialysis because of this. No fever no chills little intake today no abdominal pain noted Timing/Duration: 1-2 Days Severity/Quality: Mild Associated Symptoms: No Fever/Chills, No Fatigue, No Headache; Nausea/Vomiting; No Shortness of Air Allergies and Home Medications Allergies Coded Allergies: morphine (Unverified Adverse Reaction, Unknown, 08/02/19) Patient Home Medication List Home Medication List Reviewed: Yes Review of Systems Review of Systems Constitutional: No chills, No fever, No malaise, No weakness EENTM: No Blurred Vision, No Double Vision Respiratory: Denies Cough, Denies Shortness of Air, Denies Wheezing Cardiovascular: Irregular Heart Rate; Denies Palpitations Gastrointestinal: Denies Abdominal Pain, Denies Constipated, Denies Diarrhea; Nausea, Vomiting Genitourinary: Other (decreased urination) Musculoskeletal: other (bilateral lower amputee) Skin: lesions, rash Psychiatric/Neurological: Denies Depressed, Denies Headache, Denies Numbness Past Jofruav-Mqsffy-Qyhtlr Hx Past Med/Social Hx: Reviewed Nursing Past Med/Soc Hx Physical Exam Vital Signs Capillary Refill : Height/Weight/BMI Height: '" Weight: lbs. oz. kg; 41.95 BMI Method: General Appearance: WD/WN, no apparent distress HEENT: PERRL/EOMI, TMs normal Neck: full range of motion Respiratory: lungs clear, normal breath sounds Cardiovascular: tachycardia, irregularly irregular Gastrointestinal: soft, abnormal bowel sounds; No distended, No tenderness; o ther (markedly obese) Extremities: other (bilateral lower AKA) Neurologic/Psychiatric: normal mood/affect, oriented x 3 Skin: normal color, warm/dry, other (numerous superficial skin lesions on the abdomen) Progress/Results/Core Measures Results/Orders Lab Results Laboratory Tests Test 08/02/19 12:40 Range/Units White Blood Count 15.6 H 4.3-11.0 10^3/uL Red Blood Count 2.84 L 4.35-5.85 10^6/uL Hemoglobin 8.0 L 13.3-17.7 G/DL Hematocrit 27 L 40-54 % Mean Corpuscular Volume 94 80-99 FL Mean Corpuscular Hemoglobin 28 25-34 PG Mean Corpuscular Hemoglobin Concent 30 L 32-36 G/DL Red Cell Distribution Width 17.7 H 10.0-14.5 % Platelet Count 432 H 130-400 10^3/uL Mean Platelet Volume 9.8 7.4-10.4 FL Neutrophils (%) (Auto) 86 H 42-75 % Lymphocytes (%) (Auto) 5 L 12-44 % Monocytes (%) (Auto) 6 0-12 % Eosinophils (%) (Auto) 2 0-10 % Basophils (%) (Auto) 0 0-10 % Neutrophils # (Auto) 13.5 H 1.8-7.8 X 10^3 Lymphocytes # (Auto) 0.8 L 1.0-4.0 X 10^3 Monocytes # (Auto) 1.0 0.0-1.0 X 10^3 Eosinophils # (Auto) 0.2 0.0-0.3 10^3/uL Basophils # (Auto) 0.1 0.0-0.1 10^3/uL Neutrophils % (Manual) 81 % Lymphocytes % (Manual) 9 % Monocytes % (Manual) 7 % Eosinophils % (Manual) 1 % Basophils % (Manual) 0 % Band Neutrophils 2 % Polychromasia SLIGHT Anisocytosis SLIGHT Sodium Level 136 135-145 MMOL/L Potassium Level 4.5 3.6-5.0 MMOL/L Chloride Level 93 L 98-107 MMOL/L Carbon Dioxide Level 27 21-32 MMOL/L Anion Gap 16 H 5-14 MMOL/L Blood Urea Nitrogen 26 H 7-18 MG/DL Creatinine 3.58 H 0.60-1.30 MG/DL Estimat Glomerular Filtration Rate 17 BUN/Creatinine Ratio 7 Glucose Level 334 H 70-105 MG/DL Calcium Level 7.8 L 8.5-10.1 MG/DL Corrected Calcium 9.3 8.5-10.1 MG/DL Magnesium Level 1.6 1.6-2.4 MG/DL Total Bilirubin 0.5 0.1-1.0 MG/DL Aspartate Amino Transf (AST/SGOT) 13 5-34 U/L Alanine Aminotransferase (ALT/SGPT) 12 0-55 U/L Alkaline Phosphatase 120 40-136 U/L Total Protein 6.5 6.4-8.2 GM/DL Albumin 2.1 L 3.2-4.5 GM/DL Lipase 12 8-78 U/L My Orders Orders - NAVI ZAVALA JR, MD Cbc With Automated Diff (08/02/19 12:42) Comprehensive Metabolic Panel (08/02/19 12:42) Lipase (08/02/19 12:42) Magnesium (08/02/19 12:42) Manual Differential (08/02/19 12:40) Ekg Tracing (08/02/19 13:21) Rx-Ondansetron Po (Rx-Zofran Po) (08/02/19 14:07) Progress Progress Note : Progress Note Discussed with patient regarding taking Zofran as an outpatient continuing his dialysis schedule talked to his PCP on Saturday regarding further blood work or problems encouraged him to take his home medications to control his heart rate Initial ECG Impression Date: August 02, 2019 Initial ECG Impression Time: 13:20 Initial ECG Rate: 124 Initial ECG Rhythm: A Fib/Flutter Initial ECG Impression: Atrial Fibrillation w/RVR Departure Impression Primary Impression: Nausea and vomiting Qualified Codes: R11.2 - Nausea with vomiting, unspecified Disposition: 01 HOME, SELF-CARE Condition: Stable Departure-Patient Inst. Referrals: BECCA MARKHAM MD (PCP/Family) Primary Care Physician Patient Instructions: Nausea and Vomiting, Adult Add. Discharge Instructions: Contact PCP tomorrow return if problems All discharge instructions reviewed with patient and/or family. Voiced understanding. Scripts Ondansetron (Ondansetron Odt) 4 Mg Tab.rapdis 4 MG PO Q8H PRN for NAUSEA/VOMITING, #4 TAB 0 Refills Prov: NAVI ZAVALA JR, MD 08/02/19 NAVI ZAVALA JR, MD August 02, 2019 12:59
[2019-08-02 13:13] LABS: ANISOCYTOSIS SLIGHT; BAND NEUTROPHILS 2 %; BASOPHILS % (MANUAL) 0 %; EOSINOPHILS % (MANUAL) 1 %; LYMPHOCYTES % (MANUAL) 9 %; MONOCYTES % (MANUAL) 7 %; NEUTROPHILS % (MANUAL) 81 %; POLYCHROMASIA SLIGHT
[2019-08-02 13:14] LABS: CREATININE SERUM 3.58 MG/DL (0.60-1.30); POTASSIUM 4.5 MMOL/L (3.6-5.0)
[2019-08-02 13:15] LABS: ALBUMIN 2.1 GM/DL (3.2-4.5); BILIRUBIN,TOTAL 0.5 MG/DL (0.1-1.0); CALCIUM 7.8 MG/DL (8.5-10.1); MAGNESIUM 1.6 MG/DL (1.6-2.4); TOTAL PROTEIN 6.5 GM/DL (6.4-8.2)
[2019-08-02] MEDS ORDERED: RX-ONDANSETRON 4 MG ODT (ZOFRAN) PPK #4 PO STA (14:07)
[2019-08-02] MEDS ORDERED: ONDA4TAB11 PO (14:12)
[2019-08-02 14:40] VITALS: BP 110/68
--- NOTE | 2019-08-02 14:40 | NUR ---
Pt discharged to home via assist with son's help and a slide board to private vehicle without incidence. Pt tolerated a 1 L NS bolus and then 6 oz p.o. water challange. EMS had given Zofran 4 mg IV IMPROVEMENT SPECIALIST. Pt to f/u with calling PCP in a.m. Zofran take home pack given and script to fill add'l Zofran tomorrow when able to get script to pharmacy. No acute distress noted. Pt had confirmed he has heard of A Fib in his hx but also noted to be on Xarelto.
== END 2019-08-02 14:40 | disposition home or self-care (01) ==
LOC: EDUNIT# 12:16 → ER FS 12:17
DX: R11.2 Nausea with vomiting, unspecified (principal); Z99.2 Dependence on renal dialysis; Z88.5 Allergy status to narcotic agent
CPT/HCPCS: 36415; 80053; 83690; 83735; 85007; 85027; 93005

== ENCOUNTER 2019-08-03 16:02 | Emergency (ER) | payer MEDICARE, OTHER ==
[~2019-08-03 16:02] MED LIST: ONDA4TAB11 PO
--- NOTE | 2019-08-03 16:14 | ED Cough/URI ---
General Chief Complaint: Respiratory Problems Stated Complaint: WHEEZING Source: patient, EMS Exam Limitations: no limitations History of Present Illness Date Seen by Provider: August 03, 2019 Time Seen by Provider: 16:05 Initial Comments This patient is a 69-year-old male presents to the emergency department requesting a chest x-ray. Patient has no complaints today. Patient's home health nurse did come in and test the patient for COVID today and he was scheduled to have dialysis with the dialysis center will not perform his dialysis treatments and unless also has a chest x-ray. Patient has no complaints and is at his baseline. Timing/Duration: other Severity/Quality: no cough Modifying Factors: Worse With Activity, Worse With Albuterol Inhaler, Worse With Albuterol Nebulizer, Worse With Antibiotics, Worse With Coughing, Worse With Lying Down, Worse With Oxygen, Worse With Rest, Worse With Other Allergies and Home Medications Allergies Coded Allergies: morphine (Unverified Adverse Reaction, Unknown, 08/02/19) Home Medications Ondansetron 4 Mg Tab.rapdis, 4 MG PO Q8H PRN for NAUSEA/VOMITING Prescribed by: NAVI ZAVALA on 08/02/19 1412 Patient Home Medication List Home Medication List Reviewed: Yes Review of Systems Review of Systems Constitutional: see HPI EENTM: No see HPI, No no symptoms reported, No ear discharge, No hearing loss, No ear pain, No blurred vision, No double vision, No eye pain, No tearing, No vision loss, No dental problems, No hoarseness, No mouth pain, No mouth swelling, No epistaxis, No nose congestion, No nose pain, No throat pain, No throat swelling, No other Respiratory: No no symptoms reported, No see HPI, No cough, No dyspnea on exertion, No hemoptysis, No orthopnea, No phlegm, No short of breath, No stridor, No wheezing, No other Cardiovascular: No no symptoms reported, No see HPI, No chest pain, No edema, No Hx of Intervention, No palpitations, No syncope, No vascular heart diseas, No other Gastrointestinal: No RUQ, No LUQ, No RLQ, No LLQ, No no symptoms reported, No see HPI, No abdominal pain, No constipation, No diarrhea, No dysphagia, No hematemesis, No heartburn, No jaundice, No loss of appetite, No melena, No nausea, No vomiting, No other Genitourinary: No no symptoms reported, No see HPI, No decreased output, No discharge, No dysuria, No frequency, No hematuria, No hesitancy, No incontinence, No nocturia, No pain, No other Musculoskeletal: No no symptoms reported, No see HPI, No back pain, No gout, No joint pain, No joint swelling, No muscle pain, No muscle stiffness, No muscle cramps, No muscle twitching, No muscle weakness, No neck pain, No other Skin: No no symptoms reported, No see HPI, No change in color, No change in hair/nails, No dryness, No hx of skin cancer, No lesions, No lumps, No pruritus, No rash, No other Psychiatric/Neurological: Denies No Symptoms Reported, Denies See HPI, Denies Anxiety, Denies Depressed, Denies Emotional Problems, Denies Headache, Denies Numbness, Denies Paresthesia, Denies Pre-Existing Deficit, Denies Seizure, Denies Tingling, Denies Tremors, Denies Weakness, Denies Other All Other Systems Reviewed Negative Unless Noted: Yes Past Tcqpwfr-Czawjm-Rdqgqf Hx Patient Social History Alcohol Beverage of Choice: Beer Former Smoker, Quit: Mar 25, 2004 Recent Hopitalizations: No Seasonal Allergies Seasonal Allergies: No Past Medical History Surgeries: Yes ( Left arm fistula) Arteriovenous Shunt, Nephrectomy Respiratory: No (has not had a sleep study performed to date) Cardiac: Yes Atrial Fibrillation, High Cholesterol, Hypertension Neurological: No Genitourinary: Yes Benign Prostatic Hyperpl, Dialysis Gastrointestinal: Yes Chronic Constipation Musculoskeletal: Yes (Amputee of RLE) Endocrine: Yes Diabetes, Insulin dep HEENT: No Cancer: Yes (Prior nephrectomy) Kidney Psychosocial: No Integumentary: Yes (chronic itching with ESRD) Blood Disorders: Yes (ESRD-anemia) Physical Exam Vital Signs - First Documented 08/03/19 16:07 Temp 35.4 Pulse 70 Resp 18 B/P (MAP) 129/77 (94) Pulse Ox 98 O2 Flow Rate 2.00 Capillary Refill : Height: '" Weight: lbs. oz. kg; 41.95 BMI Method: General Appearance: WD/WN, no apparent distress HEENT: PERRL/EOMI, normal ENT inspection, TMs normal, pharynx normal Neck: non-tender, full range of motion, supple, normal inspection, carotid bruit Respiratory: chest non-tender, lungs clear, normal breath sounds, no respiratory distress, no accessory muscle use Cardiovascular: normal peripheral pulses, regular rate, rhythm, no edema, no gallop, no JVD, no murmur Gastrointestinal: normal bowel sounds, non tender, soft, no organomegaly, no pulsatile mass Extremities: normal range of motion, non-tender, normal inspection, normal capillary refill, other (bilateral AKA's. Patient is at his baseline.) Skin: normal color, warm/dry Progress/Results/Core Measures Suspected Sepsis SIRS Temperature: Pulse: Respiratory Rate: Blood Pressure / Mean: Results/Orders My Orders Orders - RENARD MAYER MD Chest 1 View Ap/Pa Only (08/03/19 16:10) Vital Signs/I&O 08/03/19 16:07 Temp 35.4 Pulse 70 Resp 18 B/P (MAP) 129/77 (94) Pulse Ox 98 O2 Flow Rate 2.00 Capillary Refill : Progress Note : Progress Note Negative evaluation in the emergency department. Patient has no complaints. Negative chest x-ray. No acute findings. Patient be discharged back to dialysis Center. Departure Impression Primary Impression: Encounter for medical screening examination Additional Impression: End stage renal disease Disposition: HOME, SELF-CARE Condition: Stable Departure-Patient Inst. Decision time for Depature: 16:59 Referrals: BECCA MARKHAM MD (PCP/Family) Primary Care Physician Patient Instructions: Dialysis and Diet, Kidney Failure (DC) Add. Discharge Instructions: Follow-up with your home health provider as instructed. For your routine care. Continue under your dialysis treatments as scheduled. Restrict fluids as instructed. All discharge instructions reviewed with patient and/or family. Voiced understanding. RENARD MAYER MD August 03, 2019 16:14
--- NOTE | 2019-08-03 16:37 | Diagnostic Imaging Report ---
HISTORY: Cough and shortness of breath. COMPARISON: None. TECHNIQUE: Single frontal view of the chest. FINDINGS: There is dense consolidation in the right lung, with relative sparing of the medial right upper lobe. No focal consolidation is seen in the left lung. Lung volumes are mildly low. No pleural effusion or pneumothorax is seen. There is a vascular stent in the left subclavian region. The cardiac silhouette is upper normal in size. There is a linear density overlying the right chest which may represent a catheter. IMPRESSION: 1. Dense consolidation in the right lung, consistent with pneumonia in the appropriate clinical setting. Dictated by: Dictated on workstation # [id number]
[2019-08-03 17:15] VITALS: BP 105/45
--- OUTSIDE RECORDS SUMMARY | 2019-08-03 20:14 | XMS REPORT | Continuity of Care Document ---
Author Organization Unknown Address Unknown Phone Unavailable Allergies Active Description Code Type Severity Reaction Onset Reported/Identified Relationship to Patient Clinical Status Yes morphine [id number] Drug Allergy Unknown N/A 08/02/2019 Medications There is no data. 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, STAGE 3 11/28/2018 SELF BECCA THORNTON Ot L97.32 9 NON-PRESSURE CHRONIC ULCER OF LEFT ANKLE 11/28/2018 SELF PAULINE THORNTONWELL Ot L97.32 9 NON-PRESSURE CHRONIC ULCER OF LEFT ANKLE 12/01/2018 SELF PAULINE THORNTONWELL Ot L97.52 3 NON-PRS CHRONIC ULCER OTH PRT LEFT FOOT 12/08/2018 LENCHO MAHARAJ SUPERVISOR BRINE Ot E11.22 TYPE 2 DIABETES MELLITUS W DIABETIC LICENSED NUCLEAR CONTROL ROOM OPERATOR 12/08/2018 LENCHO MAHARAJ SUPERVISOR BRINE Ot E11.621 TYPE 2 DIABETES MELLITUS WITH FOOT ULCER 12/08/2018 LENCHO MAHARAJ SUPERVISOR BRINE Ot L97.522 NON-PRS CHRONIC ULCER OTH PRT LEFT FOOT 12/08/2018 CAROL ANN, LENCHO R SUPERVISOR BRINE Ot N18.6 END STAGE RENAL DISEASE 12/08/2018 LENCHO MAHARAJ SUPERVISOR BRINE Ot Z89.432 ACQUIRED ABSENCE OF LEFT FOOT 12/08/2018 LENCHO MAHARAJ SUPERVISOR BRINE Ot E11.22 TYPE 2 DIABETES MELLITUS W DIABETIC LICENSED NUCLEAR CONTROL ROOM OPERATOR 12/08/2018 LENCHO MAHARAJ SUPERVISOR BRINE Ot E11.40 TYPE 2 DIABETES MELLITUS WITH DIABETIC N 12/08/2018 LENCHO MAHARAJ SUPERVISOR BRINE Ot E11.621 TYPE 2 DIABETES MELLITUS WITH FOOT ULCER 12/08/2018 LENCHO MAHARAJ SUPERVISOR BRINE Ot I12.0 HYP CHR KIDNEY DISEASE W STAGE 5 CHR KID 12/08/2018 LENCHO MAHARAJ R SUPERVISOR BRINE Ot L97.522 NON-PRS CHRONIC ULCER OTH PRT LEFT FOOT 12/08/2018 LENCHO MAHARAJ SUPERVISOR BRINE Ot M19.91 PRIMARY OSTEOARTHRITIS, UNSPECIFIED SITE 12/08/2018 LENCHO MAHARAJ SUPERVISOR BRINE Ot N18.6 END STAGE RENAL DISEASE 12/15/2018 LENCHO MAHARAJ SUPERVISOR BRINE Ot E11.22 TYPE 2 DIABETES MELLITUS W DIABETIC LICENSED NUCLEAR CONTROL ROOM OPERATOR 12/15/2018 LENCHO MAHARAJ SUPERVISOR BRINE Ot E11.621 TYPE 2 DIABETES MELLITUS WITH FOOT ULCER 12/15/2018 LENCHO MAHARAJ SUPERVISOR BRINE Ot L97.522 NON-PRS CHRONIC ULCER OTH PRT LEFT FOOT 12/15/2018 LENCHO MAHARAJ R SUPERVISOR BRINE Ot N18.6 END STAGE RENAL DISEASE 12/17/2018 LENCHO MAHARAJ SUPERVISOR BRINE Ot E11.22 TYPE 2 DIABETES MELLITUS W DIABETIC LICENSED NUCLEAR CONTROL ROOM OPERATOR 12/17/2018 LENCHO MAHARAJ SUPERVISOR BRINE Ot E11.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 12/17/2018 LENCHO MAHARAJ SUPERVISOR BRINE Ot E11.621 TYPE 2 DIABETES MELLITUS WITH FOOT ULCER 12/17/2018 LENCHO MAHARAJ R SUPERVISOR BRINE Ot L97.522 NON-PRS CHRONIC ULCER OTH PRT LEFT FOOT 12/17/2018 LENCHO MAHARAJ SUPERVISOR BRINE Ot N18.6 END STAGE RENAL DISEASE 12/22/2018 DALLIN UMAÑA MD Ot E11.22 TYPE 2 DIABETES MELLITUS W DIABETIC LICENSED NUCLEAR CONTROL ROOM OPERATOR 12/22/2018 DALLIN UMAÑA MD Ot E11.42 TYPE [...] LEFT ANKLE AND FOOT 12/22/2018 DALLIN UMAÑA MD, Ot M62 .3 IMMOBILITY SYNDROME (PARAPLEGIC) 12/22/2018 DALLIN UMAÑA MD, Ot M86.472 CHRONIC OSTEOMYELITIS W DRAINING SINUS, 12/22/2018 DALLIN UMAÑA MD, Ot N18 .6 END STAGE RENAL DISEASE 12/25/2018 LENCHO MAHARAJ SUPERVISOR BRINE Ot E11.22 TYPE 2 DIABETES MELLITUS W DIABETIC LICENSED NUCLEAR CONTROL ROOM OPERATOR 12/25/2018 LENCHO MAHARAJ SUPERVISOR BRINE Ot E11.40 TYPE 2 DIABETES MELLITUS WITH DIABETIC N 12/25/2018 LENCHO MAHARAJ SUPERVISOR BRINE Ot E11.621 TYPE 2 DIABETES MELLITUS WITH FOOT ULCER 12/25/2018 LENCHO MAHARAJ SUPERVISOR BRINE Ot I12.0 HYP CHR KIDNEY DISEASE W STAGE 5 CHR KID 12/25/2018 LENCHO MAHARAJ SUPERVISOR BRINE Ot L97.522 NON-PRS CHRONIC ULCER OTH PRT LEFT FOOT 12/25/2018 LENCHO MAHARAJ SUPERVISOR BRINE Ot M19.91 PRIMARY OSTEOARTHRITIS, UNSPECIFIED SITE 12/25/2018 LENCHO MAHARAJ SUPERVISOR BRINE Ot N18.6 END STAGE RENAL DISEASE 12/29/2018 LENCHO MAHARAJ SUPERVISOR BRINE Ot E11.22 TYPE 2 DIABETES MELLITUS W DIABETIC LICENSED NUCLEAR CONTROL ROOM OPERATOR 12/29/2018 LENCHO MAHARAJ SUPERVISOR BRINE Ot E11.621 TYPE 2 DIABETES MELLITUS WITH FOOT ULCER 12/29/2018 LENCHO MAHARAJ SUPERVISOR BRINE Ot L97.522 NON-PRS CHRONIC ULCER OTH PRT LEFT FOOT 12/29/2018 LENCHO MAHARAJ SUPERVISOR BRINE Ot N18.6 END STAGE RENAL DISEASE 12/29/2018 LENCHO MAHARAJ SUPERVISOR BRINE Ot Z89.432 ACQUIRED ABSENCE OF LEFT FOOT 12/31/2018 LENCHO MAHARAJ SUPERVISOR BRINE Ot E11.22 TYPE 2 DIABETES MELLITUS W DIABETIC LICENSED NUCLEAR CONTROL ROOM OPERATOR 12/31/2018 CAROL ANN, LENCHO R SUPERVISOR BRINE Ot E11.621 TYPE 2 DIABETES MELLITUS WITH FOOT ULCER 12/31/2018 CAROL ANN LENCHO R SUPERVISOR BRINE Ot L97.522 NON-PRS CHRONIC ULCER OTH PRT LEFT FOOT 12/31/2018 LENCHO MAHARAJ R SUPERVISOR BRINE Ot N18.6 END STAGE RENAL DISEASE 01/01/2019 LENCHO MAHARAJ R SUPERVISOR BRINE Ot E11.22 TYPE 2 DIABETES MELLITUS W DIABETIC LICENSED NUCLEAR CONTROL ROOM OPERATOR 01/01/2019 LENCHO MAHARAJ R SUPERVISOR BRINE Ot E11.621 TYPE 2 DIABETES MELLITUS WITH FOOT ULCER 01/01/2019 CAROL ANN LENCHO R SUPERVISOR BRINE Ot L97.522 NON-PRS CHRONIC ULCER OTH PRT LEFT FOOT 01/01/2019 CAROL ANN LENCHO R SUPERVISOR BRINE Ot M65.88 OTHER SYNOVITIS AND TENOSYNOVITIS, OTHER 01/01/2019 CAROL ANN LENCHO R SUPERVISOR BRINE Ot M85.88 OTH DISRD OF BONE DENSITY AND STRUCTURE, 01/01/2019 CAROL ANN LENCHO R SUPERVISOR BRINE Ot M87.9 OSTEONECROSIS, UNSPECIFIED 01/01/2019 CAROL ANN LENCHO R SUPERVISOR BRINE Ot N18.6 END STAGE RENAL DISEASE 01/04/2019 CAROL ANN LENCHO R SUPERVISOR BRINE Ot E11.22 TYPE 2 DIABETES MELLITUS W DIABETIC LICENSED NUCLEAR CONTROL ROOM OPERATOR 01/04/2019 CAROL ANN LENCHO R SUPERVISOR BRINE Ot E11.621 TYPE 2 DIABETES MELLITUS WITH FOOT ULCER 01/04/2019 LENCHO MAHARAJ R SUPERVISOR BRINE Ot L97.522 NON-PRS CHRONIC ULCER OTH PRT LEFT FOOT 01/04/2019 CAROL ANN LENCHO R SUPERVISOR BRINE Ot M65.88 OTHER SYNOVITIS AND TENOSYNOVITIS, OTHER 01/04/2019 CAROL ANN LENCHO R SUPERVISOR BRINE Ot M85.88 OTH DISRD OF BONE DENSITY AND STRUCTURE, 01/04/2019 CAROL ANN LENCHO R SUPERVISOR BRINE Ot M87.9 OSTEONECROSIS, UNSPECIFIED 01/04/2019 CAROL ANN LENCHO R SUPERVISOR BRINE Ot N18.6 END STAGE RENAL DISEASE 01/09/2019 DALLIN UMAÑA MD Ot E11.22 TYPE 2 DIABETES MELLITUS W DIABETIC LICENSED NUCLEAR CONTROL ROOM OPERATOR 01/09/2019 DALLIN UMAÑA MD Ot E11.42 TYPE 2 DIABETES MELLITUS WITH DIABETIC P 01/09/2019 DALLIN UMAÑA MD Ot E11.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 01/09/2019 DALLIN UMAÑA MD Ot E11.621 TYPE 2 DIABETES MELLITUS WITH FOOT ULCER 01/09/2019 DALLIN UMAÑA MD Ot E11.65 TYPE 2 DIABETES MELLITUS WITH HYPERGLYCE 01/09/2019 DALLIN UMAÑA MD, Ot E62 .3 01/09/2019 DALLIN UMAÑA MD, [...] E11.22 TYPE 2 DIABETES MELLITUS W DIABETIC LICENSED NUCLEAR CONTROL ROOM OPERATOR 01/20/2019 LENCHO MAHARAJ APRN Ot E11.621 TYPE 2 DIABETES MELLITUS WITH FOOT ULCER 01/20/2019 LENCHO MAHARAJ APRN Ot L97.522 NON-PRS CHRONIC ULCER OTH PRT LEFT FOOT 01/20/2019 LENCHO MAHARAJ APRN Ot M65.88 OTHER SYNOVITIS AND TENOSYNOVITIS, OTHER 01/20/2019 LENCHO MAHARAJ APRN Ot M85.88 OTH DISRD OF BONE DENSITY AND STRUCTURE, 01/20/2019 LENCHO MAHARAJ APRN Ot M87.9 OSTEONECROSIS, UNSPECIFIED 01/20/2019 LENCHO MAHARAJ APRN Ot N18.6 END STAGE RENAL DISEASE 01/20/2019 DALLIN UMAÑA MD, Ot E11.22 TYPE 2 DIABETES MELLITUS W DIABETIC LICENSED NUCLEAR CONTROL ROOM OPERATOR 01/20/2019 DALLIN UMAÑA MD, Ot E11.42 TYPE 2 DIABETES MELLITUS WITH DIABETIC P 01/20/2019 DALLIN UMAÑA MD, Ot E11.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 01/20/2019 DALLIN UMAÑA MD Ot E11.621 TYPE 2 DIABETES MELLITUS WITH FOOT ULCER 01/20/2019 DALLIN UMAÑA MD, Ot E11.65 TYPE 2 [...] E11.22 TYPE 2 DIABETES MELLITUS W DIABETIC LICENSED NUCLEAR CONTROL ROOM OPERATOR 01/26/2019 DALLIN UMAÑA MD, Ot E11.42 TYPE [...] E11.22 TYPE 2 DIABETES MELLITUS W DIABETIC LICENSED NUCLEAR CONTROL ROOM OPERATOR 02/03/2019 DALLIN UMAÑA MD, Ot E11.42 TYPE [...] 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) 02/04/2019 DALLIN UMAÑA MD Ot E11.22 TYPE 2 DIABETES MELLITUS W DIABETIC LICENSED NUCLEAR CONTROL ROOM OPERATOR 02/04/2019 DALLIN UMAÑA MD, Ot E11.42 TYPE [...] DUE TO EXCESS CA 02/04/2019 DALLIN UMAÑA MD, Ot I96 GANGRENE, NOT ELSEWHERE CLASSIFIED 02/04/2019 [...] E11.22 TYPE 2 DIABETES MELLITUS W DIABETIC LICENSED NUCLEAR CONTROL ROOM OPERATOR 02/09/2019 DALLIN UMAÑA MD, Ot E11.42 TYPE [...] E11.22 TYPE 2 DIABETES MELLITUS W DIABETIC LICENSED NUCLEAR CONTROL ROOM OPERATOR 02/12/2019 DALLIN UMAÑA MD, Ot E11.42 TYPE [...] MELLITUS WITH DIABETIC N 02/17/2019 LEN GARCIA MD, Ot E11.51 TYPE 2 DIABETES W DIABETIC PERIPHERAL AN 02/17/2019 LEN GARCIA MD, Ot E11.65 TYPE 2 DIABETES MELLITUS WITH HYPERGLYCE 02/17/2019 LEN GARCIA MD Ot E66.9 OBESITY, UNSPECIFIED 02/18/2019 DALLIN UMAÑA MD, Ot E11.22 TYPE 2 DIABETES MELLITUS W DIABETIC LICENSED NUCLEAR CONTROL ROOM OPERATOR 02/18/2019 DALLIN UMAÑA MD, Ot E11.42 TYPE [...] CHRONIC ULCER OTH PRT LEFT FOOT 02/23/2019 SELF MD, BECCA Ot L97.52 3 NON-PRS CHRONIC ULCER OTH PRT LEFT FOOT 02/25/2019 BECCA MARKHAM MD Ot L97.52 3 NON-PRS CHRONIC ULCER OTH PRT LEFT FOOT 02/27/2019 DALLIN UMAÑA MD, Ot E11.22 TYPE 2 DIABETES MELLITUS W DIABETIC LICENSED NUCLEAR CONTROL ROOM OPERATOR 02/27/2019 DALLIN UMAÑA MD, Ot E11.42 TYPE [...] N18 .6 END STAGE RENAL DISEASE 03/20/2019 BECCA MARKHAM MD Ot L97.52 3 NON-PRS CHRONIC ULCER OTH PRT LEFT FOOT 04/03/2019 SELF BECCA THORNTON Ot L97.52 3 NON-PRS CHRONIC ULCER OTH PRT LEFT FOOT 04/03/2019 SELF BECCA THORNTON Ot L97.32 9 NON-PRESSURE CHRONIC ULCER OF LEFT ANKLE 04/03/2019 SELF BECCA THORNTON Ot 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, STAGE 3 04/03/2019 LENCHO MAHARAJ APRN Ot E11.22 TYPE 2 DIABETES MELLITUS W DIABETIC LICENSED NUCLEAR CONTROL ROOM OPERATOR 04/03/2019 LENCHO MAHARAJ APRN Ot E11.40 TYPE 2 DIABETES MELLITUS WITH DIABETIC N 04/03/2019 LENCHO MAHARAJ APRN Ot E11.621 TYPE 2 DIABETES MELLITUS WITH FOOT ULCER 04/03/2019 LENCHO MAHARAJ APRN Ot I12.0 HYP CHR KIDNEY DISEASE W STAGE 5 CHR KID 04/03/2019 CAROL ANN, LENCHO R SUPERVISOR BRINE Ot L97.522 NON-PRS CHRONIC ULCER OTH PRT LEFT FOOT 04/03/2019 DAYLIN MAHARAJN R SUPERVISOR BRINE Ot M19.91 PRIMARY OSTEOARTHRITIS, UNSPECIFIED SITE 04/03/2019 CAROL ANN LENCHO R SUPERVISOR BRINE Ot N18.6 END STAGE RENAL DISEASE 04/03/2019 DAYLIN MAHARAJN R SUPERVISOR BRINE Ot E11.22 TYPE 2 DIABETES MELLITUS W DIABETIC LICENSED NUCLEAR CONTROL ROOM OPERATOR 04/03/2019 CAROL ANN LENCHO R SUPERVISOR BRINE Ot E11.621 TYPE 2 DIABETES MELLITUS WITH FOOT ULCER 04/03/2019 CAROL ANN LENCHO R SUPERVISOR BRINE Ot L97.522 NON-PRS CHRONIC ULCER OTH PRT LEFT FOOT 04/03/2019 CAROL ANN LENCHO R SUPERVISOR BRINE Ot N18.6 END STAGE RENAL DISEASE 04/03/2019 DAYLIN MAHARAJN R SUPERVISOR BRINE Ot Z89.432 ACQUIRED ABSENCE OF LEFT FOOT 04/03/2019 DAYLIN MAHARAJN R SUPERVISOR BRINE Ot E11.22 TYPE 2 DIABETES MELLITUS W DIABETIC LICENSED NUCLEAR CONTROL ROOM OPERATOR 04/03/2019 CAROL ANN LENCHO R SUPERVISOR BRINE Ot E11.621 TYPE 2 DIABETES MELLITUS WITH FOOT ULCER 04/03/2019 CAROL ANN LENCHO R SUPERVISOR BRINE Ot L97.522 NON-PRS CHRONIC ULCER OTH PRT LEFT FOOT 04/03/2019 DAYLIN MAHARAJN R SUPERVISOR BRINE Ot N18.6 END STAGE RENAL DISEASE 04/03/2019 DAYLIN MAHARAJN R SUPERVISOR BRINE Ot E11.22 TYPE 2 DIABETES MELLITUS W DIABETIC LICENSED NUCLEAR CONTROL ROOM OPERATOR 04/03/2019 CAROL ANN LENCHO R SUPERVISOR BRINE Ot E11.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 04/03/2019 DAYLIN MAHARAJN R SUPERVISOR BRINE Ot E11.621 TYPE 2 DIABETES MELLITUS WITH FOOT ULCER 04/03/2019 CAROL ANN LENCHO R SUPERVISOR BRINE Ot L97.522 NON-PRS CHRONIC ULCER OTH PRT LEFT FOOT 04/03/2019 CAROL ANN LENCHO R SUPERVISOR BRINE Ot N18.6 END STAGE RENAL DISEASE 04/03/2019 CAROL ANN LENCHO R SUPERVISOR BRINE Ot E11.22 TYPE 2 DIABETES MELLITUS W DIABETIC LICENSED NUCLEAR CONTROL ROOM OPERATOR 04/03/2019 CAROL ANN LENCHO R SUPERVISOR BRINE Ot E11.621 TYPE 2 DIABETES MELLITUS WITH FOOT ULCER 04/03/2019 CAROL ANN LENCHO R SUPERVISOR BRINE Ot L97.522 NON-PRS CHRONIC ULCER OTH PRT LEFT FOOT 04/03/2019 CAROL ANN LENCHO R SUPERVISOR BRINE Ot M65.88 OTHER SYNOVITIS AND TENOSYNOVITIS, OTHER 04/03/2019 LENCHO MAHARAJ SUPERVISOR BRINE Ot M85.88 OTH DISRD OF BONE DENSITY AND STRUCTURE, 04/03/2019 LENCHO MAHARAJ APRN Ot M87.9 OSTEONECROSIS, UNSPECIFIED 04/03/2019 LENCHO MAHARAJ APRN Ot N18.6 END STAGE RENAL DISEASE 04/03/2019 DALLIN UMAÑA MD Ot E11.22 TYPE 2 DIABETES MELLITUS W DIABETIC LICENSED NUCLEAR CONTROL ROOM OPERATOR 04/03/2019 DALLIN UMAÑA MD, Ot E11.42 TYPE [...] DUE TO EXCESS CA 04/03/2019 DALLIN UMAÑA MD Ot L97.522 NON-PRS CHRONIC ULCER OTH PRT LEFT FOOT 04/03/2019 DALLIN UMAÑA MD, Ot 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, LEFT ANKLE AND FOOT 04/03/2019 DALLIN UMAÑA MD, Ot M62 .3 IMMOBILITY SYNDROME (PARAPLEGIC) 04/03/2019 DALLIN UMAÑA MD Ot M86.472 CHRONIC OSTEOMYELITIS W DRAINING SINUS, 04/03/2019 DALLIN UMAÑA MD Ot N18 .6 END STAGE RENAL DISEASE 04/03/2019 LEN GARCIA MD Ot E11.21 TYPE 2 DIABETES MELLITUS WITH DIABETIC N 04/03/2019 LEN GARCIA MD Ot E11.40 TYPE 2 DIABETES MELLITUS WITH DIABETIC N 04/03/2019 LEN GARCIA MD Ot E11.51 TYPE 2 DIABETES W DIABETIC PERIPHERAL AN 04/03/2019 LEN GARCIA MD, Ot E11.65 TYPE 2 DIABETES MELLITUS WITH HYPERGLYCE 04/03/2019 LEN GARCIA MD Ot E66.9 OBESITY, UNSPECIFIED 04/03/2019 DALLIN UMAÑA MD, Ot E11.22 TYPE 2 DIABETES MELLITUS W DIABETIC LICENSED NUCLEAR CONTROL ROOM OPERATOR 04/03/2019 DALLIN UMAÑA MD Ot E11.42 TYPE 2 DIABETES MELLITUS WITH DIABETIC P 04/03/2019 LEEROY MD, DALLIN G Ot E11.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 04/03/2019 DALLIN UMAÑA MD Ot E11.621 TYPE 2 DIABETES MELLITUS WITH FOOT ULCER 04/03/2019 DALLIN UMAÑA MD Ot E11.65 TYPE 2 DIABETES MELLITUS WITH HYPERGLYCE 04/03/2019 DALLIN UMAÑA MD Ot E66.01 MORBID (SEVERE) [...] END STAGE RENAL DISEASE 04/03/2019 DALLIN UMAÑA MD Ot E11.22 TYPE 2 DIABETES MELLITUS W DIABETIC LICENSED NUCLEAR CONTROL ROOM OPERATOR 04/03/2019 DALLIN UMAÑA MD Ot E11.42 TYPE 2 DIABETES MELLITUS WITH DIABETIC P 04/03/2019 DALLIN UMAÑA MD Ot E11.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 04/03/2019 DALLIN UMAÑA MD Ot E11.621 TYPE 2 DIABETES MELLITUS WITH FOOT ULCER 04/03/2019 DALLIN UMAÑA MD, Ot E11.65 TYPE 2 DIABETES MELLITUS WITH HYPERGLYCE 04/03/2019 DALLIN UMAÑA MD Ot E66.01 MORBID (SEVERE) OBESITY DUE TO EXCESS CA 04/03/2019 DALLIN UMAÑA MD Ot L97.424 NON-PRS CHRONIC ULCER OF LEFT [...] MD, Ot 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) 04/03/2019 DALLIN UMAÑA MD, Ot E11.22 TYPE 2 DIABETES MELLITUS W DIABETIC LICENSED NUCLEAR CONTROL ROOM OPERATOR 04/03/2019 DALLIN UMAÑA MD, Ot E11.42 TYPE [...] E11.22 TYPE 2 DIABETES MELLITUS W DIABETIC LICENSED NUCLEAR CONTROL ROOM OPERATOR 04/03/2019 DALLIN UMAÑA MD, Ot E11.42 TYPE [...] E11.22 TYPE 2 DIABETES MELLITUS W DIABETIC LICENSED NUCLEAR CONTROL ROOM OPERATOR 04/03/2019 DALLIN UMAÑA MD, Ot E11.42 TYPE [...] E11.22 TYPE 2 DIABETES MELLITUS W DIABETIC LICENSED NUCLEAR CONTROL ROOM OPERATOR 04/03/2019 DALLIN UMAÑA MD, Ot E11.42 TYPE [...] .3 IMMOBILITY SYNDROME (PARAPLEGIC) 04/03/2019 DALLIN UMAÑA MD Ot M86.472 CHRONIC OSTEOMYELITIS W DRAINING SINUS, 04/03/2019 DALLIN UMAÑA MD, Ot N18 .6 END STAGE RENAL DISEASE [facility]/07[facility] K80.20 CALCULUS OF GALLBLADDER W/O CHOLECYSTITI 04/07/2019 [facility] N28.1 CYST OF KIDNEY, ACQUIRED 04/20/2019 [facility] Ot K80.20 CALCULUS OF GALLBLADDER W/O CHOLECYSTITI 04/20/2019 [facility], KRYSTAL Linares APRN Ot N28.1 CYST OF KIDNEY, ACQUIRED 04/21/2019 LEN GARCIA MD, Ot E11.21 TYPE 2 DIABETES MELLITUS WITH DIABETIC N 04/21/2019 LEN GARCIA MD, Ot E11.40 TYPE 2 DIABETES MELLITUS WITH DIABETIC N 04/21/2019 LEN GARCIA MD, Ot E11.51 TYPE 2 DIABETES W DIABETIC PERIPHERAL AN 04/21/2019 LEN GARCIA MD Ot E11.65 TYPE 2 DIABETES MELLITUS WITH HYPERGLYCE 04/21/2019 LEN GARCIA MD Ot E66.9 OBESITY, UNSPECIFIED 05/25/2019 [facility] Ot K80.20 CALCULUS OF GALLBLADDER W/O CHOLECYSTITI 05/25/2019 [facility] N28.1 CYST OF KIDNEY, ACQUIRED 05/26/2019 BECCA MARKHAM MD Ot L97.52 3 NON-PRS CHRONIC ULCER OTH PRT LEFT FOOT 05/26/2019 BECCA MARKHAM MD Ot L97.32 9 NON-PRESSURE CHRONIC ULCER OF LEFT ANKLE 05/26/2019 BECCA MARKHAM MD Ot 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, STAGE 3 05/26/2019 LENCHO MAHARAJ APRN Ot E11.22 TYPE 2 DIABETES MELLITUS W DIABETIC LICENSED NUCLEAR CONTROL ROOM OPERATOR 05/26/2019 LENCHO MAHARAJ APRN Ot E11.40 TYPE 2 DIABETES MELLITUS WITH DIABETIC N 05/26/2019 LENCHO MAHARAJ APRN Ot E11.621 TYPE 2 DIABETES MELLITUS WITH FOOT ULCER 05/26/2019 LENCHO MAHARAJ APRN Ot I12.0 HYP CHR KIDNEY DISEASE W STAGE 5 CHR KID 05/26/2019 LENCHO MAHARAJ APRN Ot L97.522 NON-PRS CHRONIC ULCER OTH PRT LEFT FOOT 05/26/2019 CAROL ANN LENCHO R SUPERVISOR BRINE Ot M19.91 PRIMARY OSTEOARTHRITIS, UNSPECIFIED SITE 05/26/2019 CAROL ANN LENCHO R SUPERVISOR BRINE Ot N18.6 END STAGE RENAL DISEASE 05/26/2019 CAROL ANN LENCHO R SUPERVISOR BRINE Ot E11.22 TYPE 2 DIABETES MELLITUS W DIABETIC LICENSED NUCLEAR CONTROL ROOM OPERATOR 05/26/2019 CAROL ANN, LENCHO R SUPERVISOR BRINE Ot E11.621 TYPE 2 DIABETES MELLITUS WITH FOOT ULCER 05/26/2019 CAROL ANN LENCHO R SUPERVISOR BRINE Ot L97.522 NON-PRS CHRONIC ULCER OTH PRT LEFT FOOT 05/26/2019 CAROL ANN LENCHO R SUPERVISOR BRINE Ot N18.6 END STAGE RENAL DISEASE 05/26/2019 CAROL ANN LENCHO R SUPERVISOR BRINE Ot Z89.432 ACQUIRED ABSENCE OF LEFT FOOT 05/26/2019 DAYLIN MAHARAJN R SUPERVISOR BRINE Ot E11.22 TYPE 2 DIABETES MELLITUS W DIABETIC LICENSED NUCLEAR CONTROL ROOM OPERATOR 05/26/2019 CAROL ANN LENCHO R SUPERVISOR BRINE Ot E11.621 TYPE 2 DIABETES MELLITUS WITH FOOT ULCER 05/26/2019 CAROL ANN LENCHO R SUPERVISOR BRINE Ot L97.522 NON-PRS CHRONIC ULCER OTH PRT LEFT FOOT 05/26/2019 DAYLIN MAHARAJN R SUPERVISOR BRINE Ot N18.6 END STAGE RENAL DISEASE 05/26/2019 DAYLIN MAHARAJN R SUPERVISOR BRINE Ot E11.22 TYPE 2 DIABETES MELLITUS W DIABETIC LICENSED NUCLEAR CONTROL ROOM OPERATOR 05/26/2019 CAROL ANN, LENCHO R SUPERVISOR BRINE Ot E11.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 05/26/2019 DAYLIN MAHARAJN R SUPERVISOR BRINE Ot E11.621 TYPE 2 DIABETES MELLITUS WITH FOOT ULCER 05/26/2019 DAYLIN MAHARAJN R SUPERVISOR BRINE Ot L97.522 NON-PRS CHRONIC ULCER OTH PRT LEFT FOOT 05/26/2019 CAROL ANN LENCHO R SUPERVISOR BRINE Ot N18.6 END STAGE RENAL DISEASE 05/26/2019 CAROL ANN LENCHO R SUPERVISOR BRINE Ot E11.22 TYPE 2 DIABETES MELLITUS W DIABETIC LICENSED NUCLEAR CONTROL ROOM OPERATOR 05/26/2019 CAROL ANN LENCHO R SUPERVISOR BRINE Ot E11.621 TYPE 2 DIABETES MELLITUS WITH FOOT ULCER 05/26/2019 CAROL ANN LENCHO R SUPERVISOR BRINE Ot L97.522 NON-PRS CHRONIC ULCER OTH PRT LEFT FOOT 05/26/2019 DAYLIN MAHARAJN R SUPERVISOR BRINE Ot M65.88 OTHER SYNOVITIS AND TENOSYNOVITIS, OTHER 05/26/2019 LENCHO MAHARAJ APRN Ot M85.88 OTH DISRD OF BONE DENSITY AND STRUCTURE, 05/26/2019 LENCHO MAHARAJ APRN Ot M87.9 OSTEONECROSIS, UNSPECIFIED 05/26/2019 LENCHO MAHARAJ APRN Ot N18.6 END STAGE RENAL DISEASE 05/26/2019 DALLIN UMAÑA MD, Ot E11.22 TYPE 2 DIABETES MELLITUS W DIABETIC LICENSED NUCLEAR CONTROL ROOM OPERATOR 05/26/2019 DALLIN UMAÑA MD, Ot E11.42 TYPE [...] E11.22 TYPE 2 DIABETES MELLITUS W DIABETIC LICENSED NUCLEAR CONTROL ROOM OPERATOR 05/26/2019 DALLIN UMAÑA MD, Ot E11.42 TYPE 2 DIABETES MELLITUS WITH DIABETIC P 05/26/2019 DALLIN UMAÑA MD, Ot E11.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 05/26/2019 DALLIN UMAÑA MD, Ot E11.621 TYPE 2 DIABETES MELLITUS WITH FOOT ULCER 05/26/2019 DALLIN UMAÑA MD, Ot E11.65 TYPE 2 DIABETES MELLITUS WITH HYPERGLYCE 05/26/2019 DALLIN UMAÑA MD Ot E66.01 MORBID (SEVERE) [...] E11.22 TYPE 2 DIABETES MELLITUS W DIABETIC LICENSED NUCLEAR CONTROL ROOM OPERATOR 05/26/2019 DALLIN UMAÑA MD, Ot E11.42 TYPE [...] E11.22 TYPE 2 DIABETES MELLITUS W DIABETIC LICENSED NUCLEAR CONTROL ROOM OPERATOR 05/26/2019 DALLIN UMAÑA MD, Ot E11.42 TYPE 2 DIABETES MELLITUS WITH DIABETIC P 05/26/2019 DALLIN UMAÑA MD, Ot E11.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 05/26/2019 DALLIN UMAÑA MD Ot 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 05/26/2019 LEEROY MD, DALLIN G Ot E11.621 TYPE [...] E11.22 TYPE 2 DIABETES MELLITUS W DIABETIC LICENSED NUCLEAR CONTROL ROOM OPERATOR 05/26/2019 DALLIN UMAÑA MD, Ot E11.42 TYPE [...] E11.22 TYPE 2 DIABETES MELLITUS W DIABETIC LICENSED NUCLEAR CONTROL ROOM OPERATOR 05/26/2019 DALLIN UMAÑA MD, Ot E11.42 TYPE [...] E11.22 TYPE 2 DIABETES MELLITUS W DIABETIC LICENSED NUCLEAR CONTROL ROOM OPERATOR 05/26/2019 DALLIN UMAÑA MD, Ot E11.42 TYPE [...] END STAGE RENAL DISEASE 05/26/2019 KRYSTAL GAMBINO APRN Ot K80.20 CALCULUS OF GALLBLADDER W/O [...] Ot G47.33 OBSTRUCTIVE SLEEP APNEA (ADULT) (PEDIATR 08/02/2019 Ot E11.21 TYP E 2 DIABETES MELLITUS WITH DIABETIC N 08/02/2019 Ot E11.40 TYP E 2 DIABETES MELLITUS WITH DIABETIC N 08/02/2019 Ot E11.51 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 Results Test Result Range CMP - 06/17/18 10:50 GLUCOSE 298 mg/dL 65-139 UREA NITROGEN (BUN) 57 mg/dL 7-25 CREATININE 3.90 mg/dL 0.70-1.18 eGFR NON-AFR. BURMESE 15 mL/min/1.73m2 > OR = 60 eGFR [...] identification in isolate by anaerobe culture NOANA NRG Gram stain microscopy - 07/10/18 12:00 Gram stain microscopy Mixed Bacterial Cynthia NRG Bacteria identification in wound by cult ure - 07/10/18 12:00 Bacteria identification in wound by culture [id number] NRG FREE TEXT EXTERNAL SUSCEPTIBILITY REPORTED 07-14-18 , 1205 NRG QUANTITY OF GROWTH Many NRG FREE TEXT ENTRY 2 METHICILLIN-SENSITIVE STAPH RADHA US NRG RML Sensitivity Panel - 07/10/18 12:00 Gentamicin [...] 00:00 Bacteria identification in wound by culture [id number] NRG FREE TEXT EXTERNAL NO BETA STREP, STAPH AUREUS, OR NRG QUANTITY OF GROWTH PREDOMINANCE NRG FREE TEXT ENTRY 2 PSEUDOMONAS ISOLATED NRG Gram stain microscopy - 09/17/18 14:30 Gram stain microscopy Many Gram positive bacilli NRG Bacteria identification in wound by cult ure - 09/17/18 14:30 Bacteria identification in wound by culture [id number] NRG FREE TEXT EXTERNAL NO BETA STREP, STAPH AUREUS, OR NRG QUANTITY OF GROWTH LARGE AMOUNT NRG FREE TEXT ENTRY 2 PSEUDOMONAS ISOLATED NRG Gram stain microscopy - 12/18/18 10:32 Gram stain microscopy No bacteria seen NRG Bacteria identification in wound by cult ure - 12/18/18 10:32 Bacteria identification in wound by culture [id number] NRG FREE TEXT EXTERNAL SUSCEPTIBILITY REPORTED 9-29, 1 249 NRG QUANTITY OF GROWTH FEW [...] 7-25 CREATININE 3.00 mg/dL 0.70-1.18 eGFR NON-AFR. BURMESE 20 mL/min/1.73m2 > OR = 60 eGFR [...] 140-400 MPV 10.2 fL 7.5-12.5 ABSOLUTE NEUTROPHILS 80891 cells/uL 1500 -7800 ABSOLUTE LYMPHOCYTES 464 cells/uL 850-39 00 ABSOLUTE MONOCYTES 774 cells/uL 200-950 ABSOLUTE EOSINOPHILS 1032 cells/uL 15-50 0 ABSOLUTE BASOPHILS 65 cells/uL 0-200 NEUTROPHILS 81.9 % NRG LYMPHOCYTES 3.6 % NRG MONOCYTES 6.0 % NRG EOSINOPHILS 8.0 % NRG BASOPHILS 0.5 % NRG A1C - 07/24/19 14:33 HEMOGLOBIN A1c 7.3 % of total Hgb <5.7 Complete blood count (CBC) with automate d white blood cell (WBC) differential - 08/02/19 12:40 Blood leukocytes automated count (number/volume) 15.6 10*3/uL 4.3-11.0 Blood erythrocytes automated count (number/volume) 2.84 10*6/uL 4.35-5.85 Venous blood hemoglobin measurement (mass/volume) 8.0 g/dL 13.3-17.7 Blood hematocrit (volume fraction) 27 % 40-54 Automated erythrocyte mean corpuscular volume 94 [ foz_us] 80-99 Automated erythrocyte mean corpuscular h emoglobin (mass per erythrocyte) 28 pg 25-34 Automated erythrocyte mean corpuscular h emoglobin concentration measurement (mass/volume) 30 g/dL 32-36 Automated erythrocyte distribution width ratio 17. 7 % 10.0- 14.5 Automated blood platelet count (count/volume) 432 10*3/uL 130-400 Automated blood platelet mean volume measurement 9.8 [foz_us] 7.4-10.4 Automated blood neutrophils/100 leukocytes 86 % 42-75 Automated blood lymphocytes/100 leukocytes 5 % 12-44 Blood monocytes/100 leukocytes 6 % 0-12 Automated blood eosinophils/100 leukocytes 2 % 0-10 Automated blood basophils/100 leukocytes 0 % 0-10 Blood neutrophils automated count (number/volume) 13.5 10*3 1.8-7.8 Blood lymphocytes automated count (number/volume) 0.8 10*3 1.0-4.0 Blood monocytes automated count (number/volume) 1. 0 10*3 0.0-1.0 Automated eosinophil count 0.2 10*3/uL 0 .0-0.3 Automated blood basophil count (count/volume) 0.1 10*3/uL 0.0-0.1 Manual absolute plasma cell count - 07/23 12:40 Blood monocytes/100 leukocytes 7 % NRG Manual blood segmented neutrophils/100 leukocytes 81 % NRG Blood band neutrophils/100 leukocytes 2 % NRG Manual blood lymphocytes/100 leukocytes 9 % NRG Manual eosinophils/100 leukocytes in nose 1 % NRG Manual blood basophils/100 leukocytes 0 % NRG Blood polychromasia detection by light microscopy SLIGHT NRG Blood anisocytosis detection by light microscopy S LIGHT NRG Comprehensive metabolic panel - 08/02/19 12:40 Serum or plasma sodium measurement (moles/volume) 136 mmol/L 135-145 Serum or plasma potassium measurement (moles/volume) 4.5 mmol/L 3.6-5.0 Serum or plasma chloride measurement (moles/volume) 93 mmol/L 98-107 Carbon dioxide 27 mmol/L 21-32 Serum or plasma anion gap determination (moles/volume) 16 mmol/L 5-14 Serum or plasma urea nitrogen measurement (mass/volume ) 26 mg/dL 7-18 Serum or plasma creatinine measurement (mass/volume) 3.58 mg/dL 0.60-1.30 Serum or plasma urea nitrogen/creatinine mass ratio 7 NRG Serum or plasma creatinine measurement w ith calculation of estimated glomerular filtration rate 17 NRG Serum or plasma glucose measurement (mass/volume) 334 mg/dL 70-105 Serum or plasma calcium measurement (mass/volume) 7.8 mg/dL 8.5-10.1 Serum or plasma total bilirubin measurement (mass/volu me) 0.5 mg/dL 0.1-1.0 Serum or plasma alkaline phosphatase faith surement (enzymatic activity/volume) 120 U/L 40-136 Serum or plasma aspartate aminotransfera se measurement (enzymatic activity/volume) 13 U/L 5-34 Serum or plasma alanine aminotransferase measurement (enzymatic activity/volume) 12 U/L 0-55 Serum or plasma protein measurement (mass/volume) 6.5 g/dL 6.4-8.2 Serum or plasma albumin measurement (mass/volume) 2.1 g/dL 3.2-4.5 CALCIUM CORRECTED 9.3 mg/dL 8.5-10.1 Magnesium - 08/02/19 12:40 Magnesium 1.6 mg/dL 1.6-2.4 Lipase - 08/02/19 12:40 Lipase 12 U/L 8-78 Encounters ACCT No. Visit Date/Time Discharge Status Pt. Type Provider Facility Loc./Unit Complaint [id number] 05/01/2019 11:00:00 05/01/2019 23:59: 59 CLS Outpatient BECCA MARKHAM [facility] [id number] 07/24/2019 14:30:00 Document Registration [id number] 07/14/2018 15:30:00 Document Registration [id number] 07/03/2018 13:00:00 Document Registration [id number] 06/17/2018 10:48:00 Document Registration [id number] 06/17/2018 10:48:00 Document Registration [id number] 08/03/2019 16:03:00 17:17:00 DIS Emergency LEYLA THORNTON, RENARD Yeager [facility] ER FS WHEEZING [id number] 08/02/2019 12:17:00 14:40:00 DIS Emergency SALLY THORNTON, NAVI Kenyon [facility] ER FS N,V,D [id number] 04/30/2019 21:00:00 23:59:59 CLS Preadmit BECCA MARKHAM MD [facility] SLEEP OBSTRUCTIVE SLEEP APNEA [id number] 01/21/2019 12:07:00 00:01:00 DIS Outpatient JOSE THORNTON, LEN castillo [facility] DSME TYPE 2 DIABETES [id number] 04/03/2019 13:41:00 23:59:59 CLS Outpatient KRYSTAL GAMBINO APRN [facility] RAD URINARY RETENTI ON OTHER R33.8 [id number] 02/04/2019 10:10:00 23:59:59 CLS Outpatient DALLIN UMAÑA MD [facility] WOUNDCARE [id number] 01/28/2019 10:14:00 23:59:59 CLS Outpatient DALLIN UMAÑA MD [facility] WOUNDCARE [id number] 01/21/2019 10:23:00 23:59:59 CLS Outpatient DALLIN UMAÑA MD [facility] WOUNDCARE [id number] 01/14/2019 10:26:00 23:59:59 CLS Outpatient DALLIN UMAÑA MD [facility] WOUNDCARE [id number] 12/31/2018 10:39:00 23:59:59 CLS Outpatient DALLIN UMAÑA MD [facility] WOUNDCARE [id number] 12/29/2018 09:51:00 23:59:59 CLS Outpatient LENCHO MAHARAJ APRN [facility] RAD NON PRESSURE CH RONIC ULCER OF LEFT FOOT [id number] 12/24/2018 10:29:00 23:59:59 CLS Outpatient DALLIN UMAÑA MD [facility] WOUNDCARE [id number] 12/18/2018 09:37:00 23:59:59 CLS Outpatient DALLIN UMAÑA MD [facility] WOUNDCARE [id number] 12/11/2018 11:42:00 23:59:59 CLS Outpatient LENCHO MAHARAJ APRN [facility] RAD TYPE 2 DIABETES W/ FOOT ULCER [id number] 12/11/2018 10:56:00 23:59:59 CLS Outpatient LENCHO MAHARAJ APRN [facility] WOUNDCARE [id number] 12/04/2018 10:41:00 23:59:59 CLS Outpatient LENCHO MAHARAJ APRN [facility] RAD E11.621,N18.6 [id number] 12/04/2018 09:14:00 23:59:59 CLS Outpatient LENCHO MAHARAJ APRN [facility] WOUNDCARE [id number] 09/17/2018 14:54:00 23:59:59 CLS Outpatient SELF BECCA THORNTON [facility] LAB FS L89.623 [id number] 08/22/2018 16:09:00 23:59:59 CLS Outpatient SELF BECCA THORNTON [facility] LAB FS LT LEG ULCER [id number] 07/10/2018 11:00:00 019 23:59:59 CLS Outpatient SELF BECCA THORNTON [facility] IHC WOUND CULTURE [id number] 04/22/2019 00:00:00 Document Registration
== END 2019-08-03 17:17 | disposition home or self-care (01) ==
LOC: EDUNIT# 16:02 → ER FS 16:03
DX: E11.22 Type 2 diabetes mellitus with diabetic chronic kidney disease (principal); I12.9 Hypertensive chronic kidney disease with stage 1 through stage 4 chronic kidney disease, or unspecified chronic kidney disease; N18.6 End stage renal disease; D63.1 Anemia in chronic kidney disease; Z85.528 Personal history of other malignant neoplasm of kidney; Z88.5 Allergy status to narcotic agent; Z90.5 Acquired absence of kidney; Z99.2 Dependence on renal dialysis; Z89.611 Acquired absence of right leg above knee; Z89.612 Acquired absence of left leg above knee; Z11.59 Encounter for screening for other viral diseases
CPT/HCPCS: 71045

== ENCOUNTER 2019-08-10 12:09 | Emergency (ER) | payer MEDICARE, OTHER ==
[~2019-08-10] VITALS: Ht 130 cm; Wt 100.0 kg
--- NOTE | 2019-08-10 12:25 | ED Respiratory ---
General Chief Complaint: Respiratory Problems Source: patient, EMS Exam Limitations: no limitations History of Present Illness Date Seen by Provider: August 10, 2019 Time Seen by Provider: 12:18 Initial Comments 69-year-old male presents with shortness of breath. Patient has a history of COPD. Patient has had some chronic shortness of breath this worsen over the couple months. Patient has concern for obstructive sleep apnea. EMS was called. When EMS arrived patient oxygen reading was around 90% on room air. They gave him a DuoNeb and some oxygen and his symptoms improved. Upon arrival to the ER patient's symptoms have improved. Oxygen was weaned and is presentation of the ER has his oxygen in the upper 90s. Patient does have elevated blood glucose in the 400s. Patient is a dialysis patient with dialysis scheduled on Saturday and Saturday. Patient does not have any fevers or chills. Patient was recently tested for COVID and found to be negative. No other systemic complaints. Allergies and Home Medications Allergies Coded Allergies: morphine (Unverified Adverse Reaction, Unknown, 08/02/19) Home Medications Ondansetron 4 Mg Tab.rapdis, 4 MG PO Q8H PRN for NAUSEA/VOMITING Prescribed by: NAVI ZAVALA on 08/02/19 1412 Patient Home Medication List Home Medication List Reviewed: Yes Review of Systems Review of Systems Constitutional: No chills, No fever Respiratory: cough, short of breath Genitourinary: no symptoms reported Musculoskeletal: no symptoms reported Skin: no symptoms reported Psychiatric/Neurological: No Symptoms Reported Past Bfdpcbq-Daadju-Cisuqr Hx Past Med/Social Hx: Reviewed Nursing Past Med/Soc Hx Patient Social History Alcohol Beverage of Choice: Beer Former Smoker, Quit: Mar 25, 2004 2nd Hand Smoke Exposure: No Recent Hopitalizations: No Seasonal Allergies Seasonal Allergies: No Past Medical History Surgeries: Yes ( Left arm fistula) Arteriovenous Shunt, Nephrectomy Respiratory: No (has not had a sleep study performed to date) Cardiac: Yes Atrial Fibrillation, High Cholesterol, Hypertension Neurological: No Genitourinary: Yes Benign Prostatic Hyperpl, Dialysis Gastrointestinal: Yes Chronic Constipation Musculoskeletal: Yes (Amputee of RLE) Endocrine: Yes Diabetes, Insulin dep HEENT: No Cancer: Yes (Prior nephrectomy) Kidney Psychosocial: No Integumentary: Yes (chronic itching with ESRD) Blood Disorders: Yes (ESRD-anemia) Physical Exam Vital Signs - First Documented 08/10/19 12:10 Temp 36.6 Pulse 83 Resp 18 B/P (MAP) 122/43 (69) Pulse Ox 97 O2 Delivery Room Air Capillary Refill : Height: '" Weight: lbs. oz. kg; 41.95 BMI Method: General Appearance: WD/WN, no apparent distress Respiratory: lungs clear, normal breath sounds, no respiratory distress Cardiovascular: regular rate, rhythm Gastrointestinal: non tender, soft, other (obese) Extremities: other (bilateral BKA) Progress/Results/Core Measures Suspected Sepsis SIRS Temperature: Pulse: Respiratory Rate: Laboratory Tests 08/10/19 12:50: White Blood Count 9.1 Blood Pressure / Mean: Laboratory Tests 08/10/19 12:50: Creatinine 3.45H, Platelet Count 415H, Total Bilirubin 0.4 Results/Orders Lab Results Laboratory Tests Test 08/10/19 12:50 Range/Units White Blood Count 9.1 4.3-11.0 10^3/uL Red Blood Count 3.50 L 4.35-5.85 10^6/uL Hemoglobin 9.6 L 13.3-17.7 G/DL Hematocrit 32 L 40-54 % Mean Corpuscular Volume 92 80-99 FL Mean Corpuscular Hemoglobin 27 25-34 PG Mean Corpuscular Hemoglobin Concent 30 L 32-36 G/DL Red Cell Distribution Width 18.0 H 10.0-14.5 % Platelet Count 415 H 130-400 10^3/uL Mean Platelet Volume 9.0 7.4-10.4 FL Neutrophils (%) (Auto) 80 H 42-75 % Lymphocytes (%) (Auto) 8 L 12-44 % Monocytes (%) (Auto) 5 0-12 % Eosinophils (%) (Auto) 7 0-10 % Basophils (%) (Auto) 0 0-10 % Neutrophils # (Auto) 7.3 1.8-7.8 X 10^3 Lymphocytes # (Auto) 0.7 L 1.0-4.0 X 10^3 Monocytes # (Auto) 0.5 0.0-1.0 X 10^3 Eosinophils # (Auto) 0.6 H 0.0-0.3 10^3/uL Basophils # (Auto) 0.0 0.0-0.1 10^3/uL Neutrophils % (Manual) 73 % Lymphocytes % (Manual) 6 % Monocytes % (Manual) 6 % Eosinophils % (Manual) 7 % Basophils % (Manual) 1 % Band Neutrophils 7 % Hypochromasia 1+ Microcytosis 1+ Macrocytosis 1+ Sodium Level 132 L 135-145 MMOL/L Potassium Level 4.4 3.6-5.0 MMOL/L Chloride Level 91 L 98-107 MMOL/L Carbon Dioxide Level 30 21-32 MMOL/L Anion Gap 11 5-14 MMOL/L Blood Urea Nitrogen 26 H 7-18 MG/DL Creatinine 3.45 H 0.60-1.30 MG/DL Estimat Glomerular Filtration Rate 18 BUN/Creatinine Ratio 8 Glucose Level 409 *H 70-105 MG/DL Calcium Level 7.9 L 8.5-10.1 MG/DL Corrected Calcium 9.3 8.5-10.1 MG/DL Magnesium Level 1.5 L 1.6-2.4 MG/DL Total Bilirubin 0.4 0.1-1.0 MG/DL Aspartate Amino Transf (AST/SGOT) 10 5-34 U/L Alanine Aminotransferase (ALT/SGPT) 7 0-55 U/L Alkaline Phosphatase 115 40-136 U/L Pro-B-Type Natriuretic Peptide 62650.0 H <75.0 PG/ML Total Protein 7.6 6.4-8.2 GM/DL Albumin 2.3 L 3.2-4.5 GM/DL My Orders Orders - YE,KASSIE L DO Arterial Blood Gas (08/10/19 12:17) Cbc With Automated Diff (08/10/19 12:17) Comprehensive Metabolic Panel (08/10/19 12:17) Magnesium (08/10/19 12:17) Probnp Fs (08/10/19 12:17) Chest 1 View Ap/Pa Only (08/10/19 12:17) Ekg Tracing (08/10/19 12:17) Hemoglobin A1c (08/10/19 12:17) Accucheck Stat ONCE (08/10/19 12:17) Albuterol/Ipra Inhalation Soln (Duoneb I (08/10/19 13:15) Svn Small Volume Nebulizer (08/10/19 13:03) Doxycycline Hyclate Tablet (Vibramycin T (08/10/19 13:15) Manual Differential (08/10/19 12:50) Insulin (Regular) Human (Humulin R (Per (08/10/19 13:45) Accucheck Stat ONCE (08/10/19 14:10) Medications Given in ED Current Medications Medications Dose Ordered Sig/[place] Route Start Time Stop Time Status Last Admin Dose Admin Albuterol/ Ipratropium 3 ml ONCE ONCE INH 08/10/19 13:15 08/10/19 13:16 DC 08/10/19 13:14 3 ML Insulin Human Regular 12 unit ONCE ONCE IV 08/10/19 13:45 08/10/19 13:46 DC 08/10/19 13:37 12 UNIT Vital Signs/I&O 08/10/19 12:10 Temp 36.6 Pulse 83 Resp 18 B/P (MAP) 122/43 (69) Pulse Ox 97 O2 Delivery Room Air Capillary Refill : Diagnostic Imaging Diagonstic Imaging: Xray Plain Films/CT/US/NM/MRI: chest Comments [facility] [place] [place] NAME: PARAGPIEDAD Patria [facility] REC#: [id number] PT STATUS: REG ER : 1950 PHYSICIAN: KASSIE YE DO ADMIT DATE: 08/10/19/ER FS Draft Date of Exam:08/10/19 CHEST 1 VIEW AP/PA ONLY EXAM: CHEST 1 VIEW AP/PA ONLY INDICATION: Shortness of breath. COMPARISON: 08/03/2019. FINDINGS: Increasing consolidation in the right lower lobe. Mild atelectasis or infiltrate in the left lung base. Probable small right pleural effusion. Heart size is obscured by the consolidation and rotation. Central pulmonary vascularity appears normal. Left subclavian and axillary vascular stent. No pneumothorax. No acute osseous findings. Stable abandoned lead or wire overlying the right lung apex. IMPRESSION: 1. Increasing dense consolidation in the right lung base. Probable small right pleural effusion. 2. Minimal atelectasis or infiltrate in the left lung base Departure Impression Primary Impression: Pneumonia Qualified Codes: J18.9 - Pneumonia, unspecified organism Additional Impression: Hyperglycemia Disposition: 01 HOME, SELF-CARE Condition: Stable Departure-Patient Inst. Referrals: SELF,BECCA THORNTON (PCP/Family) Primary Care Physician Follow-up in 2-3 days Patient Instructions: Pneumonia, Adult (DC), The ABCs of Diabetes, Hyperglycemia, Adult (DC) Add. Discharge Instructions: Follow-up with your primary care provider in 2-3 days for recheck a your symptoms Emergency department focuses on treating and ruling out life-threatening diseases. Whenever possible, a diagnosis is given. However, most patients are given an impression based on their history, physical exam, and workup during your brief time in the ER. Information about probable diagnosis and other educational material has been provided. Please take the time to read and understand this information. It is very important that you follow up with a physician as discussed during the visit today. Failure to adhere to your follow-up instructions may lead to severe disability, injury, or so please make sure to keep your appointments or obtain one as requested. Please keep in mind the emergency department is not designed to your primary care or "family doctor" and nonurgent issues are best evaluated by an outpatient physician All discharge instructions reviewed with patient and/or family. Voiced understanding. Scripts Doxycycline Hyclate (Doxycycline Hyclate) 100 Mg Tablet 100 MG PO BID, #20 TAB 0 Refills Prov: KASSIE YE DO 08/10/19 KASSIE YE DO August 10, 2019 12:25
--- NOTE | 2019-08-10 12:43 | Diagnostic Imaging Report ---
EXAM: CHEST 1 VIEW AP/PA ONLY INDICATION: Shortness of breath. COMPARISON: 08/03/2019. FINDINGS: Increasing consolidation in the right lower lobe. Mild atelectasis or infiltrate in the left lung base. Probable small right pleural effusion. Heart size is obscured by the consolidation and rotation. Central pulmonary vascularity appears normal. Left subclavian and axillary vascular stent. No pneumothorax. No acute osseous findings. Stable abandoned lead or wire overlying the right lung apex. IMPRESSION: 1. Increasing dense consolidation in the right lung base. Probable small right pleural effusion. 2. Minimal atelectasis or infiltrate in the left lung base. Dictated by: Dictated on workstation # [id number]
[2019-08-10 13:09] LABS: HEMATOCRIT 32 % (40-54); HEMOGLOBIN 9.6 G/DL (13.3-17.7); MEAN CORPUSCULAR HEMOGLOBIN 27 PG (25-34); MEAN CORPUSCULAR HGB CONC 30 G/DL (32-36); MEAN CORPUSCULAR VOLUME 92 FL (80-99); WHITE BLOOD COUNT 9.1 10^3/uL (4.3-11.0)
[2019-08-10 13:10] LABS: BASOPHILS % (AUTO) 0 % (0-10); EOSINOPHILS # (AUTO) 0.6 10^3/uL (0.0-0.3); EOSINOPHILS % (AUTO) 7 % (0-10); LYMPHOCYTES # (AUTO) 0.7 X 10^3 (1.0-4.0); LYMPHOCYTES % (AUTO) 8 % (12-44); MONOCYTES # (AUTO) 0.5 X 10^3 (0.0-1.0); MONOCYTES % (AUTO) 5 % (0-12); NEUTROPHILS # (AUTO) 7.3 X 10^3 (1.8-7.8); NEUTROPHILS % (AUTO) 80 % (42-75); PLATELET COUNT 415 10^3/uL (130-400)
[2019-08-10] MEDS ORDERED: RT-ALBUTEROL/IPRATROPIUM 3 ML (DUONEB) VIAL INH ONE (13:15)
[2019-08-10] MEDS ORDERED: DOXYCYCLINE 100 MG (VIBRAMYCIN) TABLET PO SCH (13:15)
[2019-08-10 13:28] LABS: POTASSIUM 4.4 MMOL/L (3.6-5.0)
[2019-08-10 13:29] LABS: ALBUMIN 2.3 GM/DL (3.2-4.5); BILIRUBIN,TOTAL 0.4 MG/DL (0.1-1.0); CALCIUM 7.9 MG/DL (8.5-10.1); CREATININE SERUM 3.45 MG/DL (0.60-1.30); MAGNESIUM 1.5 MG/DL (1.6-2.4); TOTAL PROTEIN 7.6 GM/DL (6.4-8.2)
--- OUTSIDE RECORDS SUMMARY | 2019-08-10 13:34 | XMS REPORT ---
Author Author Neel MARKHAM 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 Active 450957928 Problem Deep vein thrombosis (DVT) I82.409 Act micaela 626379147 Problem Hyperkalemia E87.5 Active 0282639 9 Problem Major depressive disorder, single episode, in full remissi on F32.5 Active 26215514 Problem Chronic kidney disease with end stage renal failure on dialysis N18.6 Jan, Active 25140781 Problem Paroxysmal atrial fibrillation I48.0 Active 079405123 Problem Type 1 diabetes mellitus with stage 2 chronic kidney disea se E10.22 Active 889000120 Problem Hyponatremia E87.1 Active 0744111 8 Problem Morbid obesity E66.01 Active 56787 6002 Problem Dialysis patient Z99.2 Active 251 376588 Problem Single kidney Z90.5 Active 020180 007 Problem Morbid (severe) obesity due to excess calories E66 .01 Active 692515487 Problem Diabetic foot infection E11.628 Oct, Act micaela Problem Diabetic polyneuropathy associated with type 1 d iabetes mellitus E10.42 Active 96512266 Problem Allergic rhinitis due to other allergen J30.89 Active 15455435 Problem 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 Active 673971878 Problem MRSA cellulitis of left foot L03.116 08 Oct, 201 3 Active [id number] Problem Osteomyelitis, unspecified M86.9 Act micaela 03149820 Problem Hypertension associated with stage 4 chronic kidney disease due to type 2 diabetes mellitus E11.22 12 Sep, 2016 Active 84793868 3 Problem 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 Active 877228687 Problem Osteomyelitis, ankle and foot M86.9 13 July, 11 Active 09722054 Problem Type 1 diabetes mellitus with foot ulcer E10.621 Active 71528925504574 Problem Nail avulsion, toe S91.209A 07 Nov, 2010 Active 21675684 Problem Chronic obstructive pulmonary disease, unspecified COPD ty pe J44.9 Active 11160076 Problem Peripheral vascular disease, unspecified I73.9 Active 421765411 Problem Chronic kidney disease, stage 4 (severe) N18.4 Active 316268035 Problem Minimal depression F32.9 Active 7 38312355 Problem Restrictive lung disease J98.4 Activ e 44586905 Problem Mixed hyperlipidemia E78.2 Active 868352822 Problem STEPHEN (obstructive sleep apnea) G47.33 Active 07081202 Problem History of right below knee amputation Z89.511 Active 591494674 Problem 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, level unspecified, 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 Active 495357797 Problem Complete traumatic amputatio n of right lower leg, level unspecified, initial encounter S88.911A Active 900175402 Problem Unspecified sleep apnea G47.30 Active 72832233 Problem Obesity (BMI 30-39.9) E66.9 Active 666743335 Problem Difficulty swallowing R13.10 Active 193630693 ALLERGIES No Information ENCOUNTERS Encounter Location Date Diagnosis [address] [id number], [place] [address] Oct, [address] 340B [id number], [place] [address] July, [address] [id number], [place] [address] July, [address] [id number], [place] [address] July, [facility] [address] [facility] [id number] [address] [address] July, [address] 340B [id number] [place] [address] July, Cough R05 and Fever R50.[address] [id number] [place] [address] July, Cough R05 and Fever R50.[address] [id number], [place] [address] July, Cough R05 and Fever R50.9 [facility] [address] [facility] [id number] [address] [place] [address] July, [address] [id number], [place] [address] July, Hypertension I10 ; Type 1 di abetes mellitus with stage 2 chronic kidney disease E10.22 ; Swelling of left middle finger M79.89 ; Minimal depression F32.9 and Mixed hyperlipidemia E78.[address] [id number], [place] [address] July, Hypertension I10 ; Paroxysma l atrial fibrillation I48.0 ; 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 and Chronic kidney disease, stage 4 (severe) N18.[address] [id number] [place] [address] Jun, Chronic kidney disease, stag e 4 (severe) N18.[address] [id number], [place] [address] Jun, [address] [id number], [place] [address] May, [address] [id number], [place] [address] May, [address] 340[address] [id number], [place] [address] May, Positive colorectal cancer s creening using Cologuard test R19.5 [address] [id number] [place] [address] May, [address] [id number], [place] [address] Apr, [address] [id number], [place] [address] Apr, Encounter for Medicare annua l wellness [...] complaint H57.9 and Colon cancer screening Z12.11 [facility] [address] [facility] [id number] [place] [address] Apr, [address] [id number], [place] [address] Apr, [address] [id number], [place] [address] Apr, [address] [id number], [place] [address] Apr, Difficulty swallowing R13.[address] [id number], [place] [address] 07 Apr, 2019 Unspecified staphylococcus a s the cause of diseases classified elsewhere B95.8 and Obesity (BMI 30-39.9) E66.[address] [id number], [place] [address] Mar, STEPHEN (obstructive sleep apnea ) G47.[address] [id number], [place] [address] Mar, [address] [id number] [place] [address] Mar, [facility] [place] [address] [id number] [place] [address] Mar, STEPHEN (obstructive sleep apnea ) G47.33 [facility] [place] [address] [id number] [place] [address] Mar, [facility] [place] [address] [id number] [place] [address] Mar, [facility] [place] [address] [id number] [place] [address] Feb, [facility] [place] [address] [id number] [place] [address] Feb, [facility] [place] [address] [id number] [place] [address] Feb, [facility] [place] [address] [id number] [place] [address] Feb, [facility] [place] [address]B [id number] [place] [address] Feb, [facility] [place] [address] [id number] [place] [address] Feb, [facility] [place] [address] [id number] [place] [address] Jan, [facility] [place] [address] [id number] [place] [address] Jan, Hypertension I10 ; Major dep ressive disorder, single episode, in full remission F32.5 ; 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 ; Paroxysmal atrial fibrillation I48.0 and Osteomyelitis, ankle and foot M86.9 [facility] [place] [address]B [id number] [place] [address] Jan, [facility] [place] [address] [id number] [place] [address] Nov, [facility] [place] [address] 340B [id number] [place] [address] Oct, Osteomyelitis, ankle and seferino t M86.9 and 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 [facility] [place] [address] [facility] [id number] [place] [address] Oct, [facility] [place] [address] 340B [id number] [place] [address] Oct, [facility] [place] [address] 340B [id number] [place] [address] Oct, [facility] [address] [id number] [place] [address] Sep, [facility] [place] [address] 340B [id number] [place] [address] Sep, [facility] [place] [address] 340[address] [id number] [place] [address] Sep, Type 1 diabetes mellitus wit h diabetic chronic kidney disease E10.22 ; Type 1 diabetes mellitus with foot ulcer E10.621 ; Non-pressure chronic ulcer of right heel and midfoot with fat layer exposed L97.412 and Morbid obesity E66.01 [facility] [place] [address] 340B [id number] [place] [address] Sep, [facility] [place] [address] 340B [id number] [place] [address] Sep, [facility] [place] [address] 340B [id number] [place] [address] Sep, [facility] [address] 340B [id number] [place] [address] Sep, [facility] [address] [facility] [id number] [address] [address] Aug, [facility] [place] [address] 340B [id number] [place] [address] Aug, [facility] [address] 340B [id number] [place] [address] Aug, Osteomyelitis, ankle and seferino t M86.9 and Decubitus ulcer of heel, stage 4 L89.604 [facility] [place] [address] 340B [id number] [place] [address] Aug, [facility] [place] [address] 340B [id number] [place] [address] Aug, [facility] [address] 340B [id number] [place] [address] Aug, [facility] [place] [address] 340B [id number] [place] [address] July, [facility] [address] [id number] [place] [address] July, Type 1 diabetes mellitus wit h diabetic chronic kidney disease E10.[address] [address] [place] [address] 340B [id number] [place] [address] July, [facility] [place] [address] 340B [id number] [place] [address] Jun, [facility] [place] [address] 340B [id number] [place] [address] Jun, [facility] [address] 340B [id number] [place] [address] Jun, Type 1 diabetes mellitus wit h diabetic chronic kidney disease E10.22 and Chronic renal disease, stage III N18.3 [facility] [place] [address] 340B [id number] [place] [address] Jun, Type 1 diabetes mellitus wit h diabetic chronic kidney disease E10.22 and Chronic renal disease, stage III N18.[address] [address] [place] [address] [id number] [place] [address] Jun, Osteomyelitis, unspecified M 86.9 [facility] [place] [address] 340B [id number] [place] [address] Jun, [facility] [address] [id number] [place] [address] Jun, [facility] [address] [id number] [place] [address] Jun, [facility] [address] 340B [id number] [place] [address] Jun, Morbid (severe) obesity due to excess calories E66.01 ; Dialysis patient Z99.2 ; 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 ; Chronic renal disease, stage III N18.3 ; Single kidney Z90.5 ; Status post below knee amputation of right lower extremity Z89.511 and Diabetic polyneuropathy associated with type 1 diabetes mellitus E10.42 [facility] [address] [id number] [place] [address] Jun, [facility] [place] [address] 340B [id number] [place] [address] Jun, [facility] [place] [address] [id number] [place] [address] Jun, [facility] [place] [address] 340B [id number] [place] [address] May, [facility] [address] [id number] [place] [address] May, [facility] [place] [address] 340B [id number] [place] [address] May, [facility] [address] [facility] [id number] [address] [address] May, [facility] [address] 340B [id number] [place] [address] May, Type 1 diabetes mellitus wit h diabetic chronic kidney disease E10.22 and Chronic renal disease, stage III N18.3 [facility] [place] [address] 340B [id number] [place] [address] Apr, [facility] [address] [id number] [place] [address] Apr, [facility] [place] [address] 340B [id number] [place] [address] Apr, [facility] [address] [facility] [id number] [address] [place] [address] Mar, [facility] [address] [facility] [id number] [address] [place] [address] Feb, [facility] [address] [facility] [id number] [address] [place] [address] Aug, IMMUNIZATIONS No Known Immunizations SOCIAL HISTORY Never Assessed REASON FOR VISIT FYI only PLAN OF CARE VITAL SIGNS MEDICATIONS Unknown [...]
--- OUTSIDE RECORDS SUMMARY | 2019-08-10 13:35 | XMS REPORT | Continuity of Care Document ---
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 12/08/2018 LENCHO MAHARAJ INTERMEDIATE FRAME TENDER Ot E11.621 TYPE 2 DIABETES MELLITUS WITH FOOT ULCER 12/08/2018 LENCHO MAHARAJ INTERMEDIATE FRAME TENDER Ot L97.522 NON-PRS CHRONIC ULCER OTH PRT LEFT FOOT 12/08/2018 CAROL ANN, LENCHO R INTERMEDIATE FRAME TENDER Ot N18.6 END STAGE RENAL DISEASE 12/08/2018 LENCHO MAHARAJ INTERMEDIATE FRAME TENDER Ot Z89.432 ACQUIRED ABSENCE OF LEFT FOOT 12/08/2018 LENCHO MAHARAJ INTERMEDIATE FRAME TENDER Ot 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 12/08/2018 LENCHO MAHARAJ INTERMEDIATE FRAME TENDER Ot E11.40 TYPE 2 DIABETES MELLITUS WITH DIABETIC N 12/08/2018 LENCHO MAHARAJ INTERMEDIATE FRAME TENDER Ot E11.621 TYPE 2 DIABETES MELLITUS WITH FOOT ULCER 12/08/2018 LENCHO MAHARAJ INTERMEDIATE FRAME TENDER Ot I12.0 HYP CHR KIDNEY DISEASE W STAGE 5 CHR KID 12/08/2018 LENCHO MAHARAJ R INTERMEDIATE FRAME TENDER Ot L97.522 NON-PRS CHRONIC ULCER OTH PRT LEFT FOOT 12/08/2018 LENCHO MAHARAJ INTERMEDIATE FRAME TENDER Ot M19.91 PRIMARY OSTEOARTHRITIS, UNSPECIFIED SITE 12/08/2018 LENCHO MAHARAJ INTERMEDIATE FRAME TENDER Ot N18.6 END STAGE RENAL DISEASE 12/15/2018 LENCHO MAHARAJ INTERMEDIATE FRAME TENDER Ot 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 12/15/2018 LENCHO MAHARAJ INTERMEDIATE FRAME TENDER Ot E11.621 TYPE 2 DIABETES MELLITUS WITH FOOT ULCER 12/15/2018 LENCHO MAHARAJ INTERMEDIATE FRAME TENDER Ot L97.522 NON-PRS CHRONIC ULCER OTH PRT LEFT FOOT 12/15/2018 LENCHO MAHARAJ R INTERMEDIATE FRAME TENDER Ot N18.6 END STAGE RENAL DISEASE 12/17/2018 LENCHO MAHARAJ INTERMEDIATE FRAME TENDER Ot 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 12/17/2018 LENCHO MAHARAJ INTERMEDIATE FRAME TENDER Ot E11.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 12/17/2018 LENCHO MAHARAJ INTERMEDIATE FRAME TENDER Ot E11.621 TYPE 2 DIABETES MELLITUS WITH FOOT ULCER 12/17/2018 LENCHO MAHARAJ R INTERMEDIATE FRAME TENDER Ot L97.522 NON-PRS CHRONIC ULCER OTH PRT LEFT FOOT 12/17/2018 LENCHO MAHARAJ INTERMEDIATE FRAME TENDER Ot N18.6 END STAGE RENAL DISEASE 12/22/2018 DALLIN UMAÑA MD Ot 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 12/22/2018 DALLIN UMAÑA MD Ot E11.42 TYPE [...] END STAGE RENAL DISEASE 12/25/2018 LENCHO MAHARAJ INTERMEDIATE FRAME TENDER Ot 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 12/25/2018 LENCHO MAHARAJ INTERMEDIATE FRAME TENDER Ot E11.40 TYPE 2 DIABETES MELLITUS WITH DIABETIC N 12/25/2018 LENCHO MAHARAJ INTERMEDIATE FRAME TENDER Ot E11.621 TYPE 2 DIABETES MELLITUS WITH FOOT ULCER 12/25/2018 LENCHO MAHARAJ INTERMEDIATE FRAME TENDER Ot I12.0 HYP CHR KIDNEY DISEASE W STAGE 5 CHR KID 12/25/2018 LENCHO MAHARAJ INTERMEDIATE FRAME TENDER Ot L97.522 NON-PRS CHRONIC ULCER OTH PRT LEFT FOOT 12/25/2018 LENCHO MAHARAJ INTERMEDIATE FRAME TENDER Ot M19.91 PRIMARY OSTEOARTHRITIS, UNSPECIFIED SITE 12/25/2018 LENCHO MAHARAJ INTERMEDIATE FRAME TENDER Ot N18.6 END STAGE RENAL DISEASE 12/29/2018 LENCHO MAHARAJ INTERMEDIATE FRAME TENDER Ot 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 12/29/2018 LENCHO MAHARAJ INTERMEDIATE FRAME TENDER Ot E11.621 TYPE 2 DIABETES MELLITUS WITH FOOT ULCER 12/29/2018 LENCHO MAHARAJ INTERMEDIATE FRAME TENDER Ot L97.522 NON-PRS CHRONIC ULCER OTH PRT LEFT FOOT 12/29/2018 LENCHO MAHARAJ INTERMEDIATE FRAME TENDER Ot N18.6 END STAGE RENAL DISEASE 12/29/2018 LENCHO MAHARAJ INTERMEDIATE FRAME TENDER Ot Z89.432 ACQUIRED ABSENCE OF LEFT FOOT 12/31/2018 LENCHO MAHARAJ INTERMEDIATE FRAME TENDER Ot 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 12/31/2018 CAROL ANN, LENCHO R INTERMEDIATE FRAME TENDER Ot E11.621 TYPE 2 DIABETES MELLITUS WITH FOOT ULCER 12/31/2018 CAROL ANN LENCHO R INTERMEDIATE FRAME TENDER Ot L97.522 NON-PRS CHRONIC ULCER OTH PRT LEFT FOOT 12/31/2018 LENCHO MAHARAJ R INTERMEDIATE FRAME TENDER Ot N18.6 END STAGE RENAL DISEASE 01/01/2019 LENCHO MAHARAJ R INTERMEDIATE FRAME TENDER Ot 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 01/01/2019 LENCHO MAHARAJ R INTERMEDIATE FRAME TENDER Ot E11.621 TYPE 2 DIABETES MELLITUS WITH FOOT ULCER 01/01/2019 CAROL ANN LENCHO R INTERMEDIATE FRAME TENDER Ot L97.522 NON-PRS CHRONIC ULCER OTH PRT LEFT FOOT 01/01/2019 CAROL ANN LENCHO R INTERMEDIATE FRAME TENDER Ot M65.88 OTHER SYNOVITIS AND TENOSYNOVITIS, OTHER 01/01/2019 CAROL ANN LENCHO R INTERMEDIATE FRAME TENDER Ot M85.88 OTH DISRD OF BONE DENSITY AND STRUCTURE, 01/01/2019 CAROL ANN LENCHO R INTERMEDIATE FRAME TENDER Ot M87.9 OSTEONECROSIS, UNSPECIFIED 01/01/2019 CAROL ANN LENCHO R INTERMEDIATE FRAME TENDER Ot N18.6 END STAGE RENAL DISEASE 01/04/2019 CAROL ANN LENCHO R INTERMEDIATE FRAME TENDER Ot 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 01/04/2019 CAROL ANN LENCHO R INTERMEDIATE FRAME TENDER Ot E11.621 TYPE 2 DIABETES MELLITUS WITH FOOT ULCER 01/04/2019 LENCHO MAHARAJ R INTERMEDIATE FRAME TENDER Ot L97.522 NON-PRS CHRONIC ULCER OTH PRT LEFT FOOT 01/04/2019 CAROL ANN LENCHO R INTERMEDIATE FRAME TENDER Ot M65.88 OTHER SYNOVITIS AND TENOSYNOVITIS, OTHER 01/04/2019 CAROL ANN LENCHO R INTERMEDIATE FRAME TENDER Ot M85.88 OTH DISRD OF BONE DENSITY AND STRUCTURE, 01/04/2019 CAROL ANN LENCHO R INTERMEDIATE FRAME TENDER Ot M87.9 OSTEONECROSIS, UNSPECIFIED 01/04/2019 CAROL ANN LENCHO R INTERMEDIATE FRAME TENDER Ot N18.6 END STAGE RENAL DISEASE 01/09/2019 DALLIN UMAÑA MD Ot 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 01/09/2019 DALLIN UMAÑA MD Ot E11.42 TYPE [...] CHRONIC ULCER OTH PRT LEFT FOOT 01/09/2019 DLALIN UMAÑA MD, Ot 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, LEFT ANKLE AND FOOT 01/09/2019 DALLIN UMAÑA MD, Ot M62 .3 IMMOBILITY SYNDROME (PARAPLEGIC) 01/09/2019 DALLIN UMAÑA MD, Ot M86.472 CHRONIC OSTEOMYELITIS W DRAINING SINUS, 01/09/2019 DALLIN UMAÑA MD, Ot N18 .6 END STAGE RENAL DISEASE 01/20/2019 LENCHO MAHARAJ APRN Ot 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42 TYPE [...] 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 02/04/2019 DALLIN UMAÑA MD, Ot E11.42 TYPE [...] 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 02/09/2019 DALLIN UMAÑA MD, Ot E11.42 TYPE [...] 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 02/12/2019 DALLIN UMAÑA MD, Ot E11.42 TYPE [...] 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 02/18/2019 DALLIN UMAÑA MD, Ot E11.42 TYPE [...] 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 02/27/2019 DALLIN UMAÑA MD, Ot E11.42 TYPE [...] 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 04/03/2019 LENCHO MAHARAJ APRN Ot E11.40 TYPE 2 DIABETES MELLITUS WITH DIABETIC N 04/03/2019 LENCHO MAHARAJ APRN Ot E11.621 TYPE 2 DIABETES MELLITUS WITH FOOT ULCER 04/03/2019 LENCHO MAHARAJ APRN Ot I12.0 HYP CHR KIDNEY DISEASE W STAGE 5 CHR KID 04/03/2019 CAROL ANN, LENCHO R INTERMEDIATE FRAME TENDER Ot L97.522 NON-PRS CHRONIC ULCER OTH PRT LEFT FOOT 04/03/2019 DAYLIN MAHARAJN R INTERMEDIATE FRAME TENDER Ot M19.91 PRIMARY OSTEOARTHRITIS, UNSPECIFIED SITE 04/03/2019 CAROL ANN LENCHO R INTERMEDIATE FRAME TENDER Ot N18.6 END STAGE RENAL DISEASE 04/03/2019 DAYLIN MAHARAJN R INTERMEDIATE FRAME TENDER Ot 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 04/03/2019 CAROL ANN LENCHO R INTERMEDIATE FRAME TENDER Ot E11.621 TYPE 2 DIABETES MELLITUS WITH FOOT ULCER 04/03/2019 CAROL ANN LENCHO R INTERMEDIATE FRAME TENDER Ot L97.522 NON-PRS CHRONIC ULCER OTH PRT LEFT FOOT 04/03/2019 CAROL ANN LENCHO R INTERMEDIATE FRAME TENDER Ot N18.6 END STAGE RENAL DISEASE 04/03/2019 DAYLIN MAHARAJN R INTERMEDIATE FRAME TENDER Ot Z89.432 ACQUIRED ABSENCE OF LEFT FOOT 04/03/2019 DAYLIN MAHARAJN R INTERMEDIATE FRAME TENDER Ot 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 04/03/2019 CAROL ANN LENCHO R INTERMEDIATE FRAME TENDER Ot E11.621 TYPE 2 DIABETES MELLITUS WITH FOOT ULCER 04/03/2019 CAROL ANN LENCHO R INTERMEDIATE FRAME TENDER Ot L97.522 NON-PRS CHRONIC ULCER OTH PRT LEFT FOOT 04/03/2019 DAYLIN MAHARAJN R INTERMEDIATE FRAME TENDER Ot N18.6 END STAGE RENAL DISEASE 04/03/2019 DAYLIN MAHARAJN R INTERMEDIATE FRAME TENDER Ot 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 04/03/2019 CAROL ANN LENCHO R INTERMEDIATE FRAME TENDER Ot E11.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 04/03/2019 DAYLIN MAHARAJN R INTERMEDIATE FRAME TENDER Ot E11.621 TYPE 2 DIABETES MELLITUS WITH FOOT ULCER 04/03/2019 CAROL ANN LENCHO R INTERMEDIATE FRAME TENDER Ot L97.522 NON-PRS CHRONIC ULCER OTH PRT LEFT FOOT 04/03/2019 CAROL ANN LENCHO R INTERMEDIATE FRAME TENDER Ot N18.6 END STAGE RENAL DISEASE 04/03/2019 CAROL ANN LENCHO R INTERMEDIATE FRAME TENDER Ot 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 04/03/2019 CAROL ANN LENCHO R INTERMEDIATE FRAME TENDER Ot E11.621 TYPE 2 DIABETES MELLITUS WITH FOOT ULCER 04/03/2019 CAROL ANN LENCHO R INTERMEDIATE FRAME TENDER Ot L97.522 NON-PRS CHRONIC ULCER OTH PRT LEFT FOOT 04/03/2019 CAROL ANN LENCHO R INTERMEDIATE FRAME TENDER Ot M65.88 OTHER SYNOVITIS AND TENOSYNOVITIS, OTHER 04/03/2019 LENCHO MAHARAJ INTERMEDIATE FRAME TENDER Ot M85.88 OTH DISRD OF BONE DENSITY AND STRUCTURE, 04/03/2019 LENCHO MAHARAJ APRN Ot M87.9 OSTEONECROSIS, UNSPECIFIED 04/03/2019 LENCHO MAHARAJ APRN Ot N18.6 END STAGE RENAL DISEASE 04/03/2019 DALLIN UMAÑA MD Ot 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 04/03/2019 DALLIN UMAÑA MD, Ot E11.42 TYPE [...] 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 04/03/2019 DALLIN UMAÑA MD Ot E11.42 TYPE [...] N18 .6 END STAGE RENAL DISEASE 04/03/2019 DLALIN UMAÑA MD Ot 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 04/03/2019 DALLIN UMAÑA MD Ot E11.42 TYPE [...] 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 04/03/2019 DALLIN UMAÑA MD, Ot E11.42 TYPE [...] 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 04/03/2019 DALLIN UMAÑA MD, Ot E11.42 TYPE [...] 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 04/03/2019 DALLIN UMAÑA MD, Ot E11.42 TYPE [...] 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 04/03/2019 DALLIN UMAÑA MD, Ot E11.42 TYPE [...] N18 .6 END STAGE RENAL DISEASE 04/07/[facility] K80.20 CALCULUS OF GALLBLADDER W/O CHOLECYSTITI 04/07/2019 [facility] Ot N28.1 CYST OF KIDNEY, ACQUIRED 04/20/2019 [facility] Ot K80.20 CALCULUS OF GALLBLADDER W/O CHOLECYSTITI 04/20/2019 [facility], KRYSTAL Linares APRN Ot N28.1 CYST [...] GARCIA MD Ot E66.9 OBESITY, UNSPECIFIED 05/25/2019 [facility] Ot K80.20 CALCULUS OF GALLBLADDER W/O CHOLECYSTITI 05/25/2019 [facility] Ot N28.1 CYST OF KIDNEY, ACQUIRED 05/26/2019 BECCA MARKHAM MD Ot L97.52 3 NON-PRS CHRONIC ULCER OTH PRT LEFT FOOT 05/26/2019 BECCA MARKHAM MD Ot L97.32 9 NON-PRESSURE CHRONIC ULCER OF LEFT ANKLE 05/26/2019 BECCA MARKHAM MD Ot 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, STAGE 3 05/26/2019 LENCHO MAHARAJ APRN Ot 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 05/26/2019 LENCHO MAHARAJ APRN Ot E11.40 TYPE 2 DIABETES MELLITUS WITH DIABETIC N 05/26/2019 LENCHO MAHARAJ APRN Ot E11.621 TYPE 2 DIABETES MELLITUS WITH FOOT ULCER 05/26/2019 LENCHO MAHARAJ APRN Ot I12.0 HYP CHR KIDNEY DISEASE W STAGE 5 CHR KID 05/26/2019 LENCHO MAHARAJ APRN Ot L97.522 NON-PRS CHRONIC ULCER OTH PRT LEFT FOOT 05/26/2019 CAROL ANN LENCHO R INTERMEDIATE FRAME TENDER Ot M19.91 PRIMARY OSTEOARTHRITIS, UNSPECIFIED SITE 05/26/2019 CAROL ANN LENCHO R INTERMEDIATE FRAME TENDER Ot N18.6 END STAGE RENAL DISEASE 05/26/2019 CAROL ANN LENCHO R INTERMEDIATE FRAME TENDER Ot 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 05/26/2019 CAROL ANN, LENCHO R INTERMEDIATE FRAME TENDER Ot E11.621 TYPE 2 DIABETES MELLITUS WITH FOOT ULCER 05/26/2019 CAROL ANN LENCHO R INTERMEDIATE FRAME TENDER Ot L97.522 NON-PRS CHRONIC ULCER OTH PRT LEFT FOOT 05/26/2019 CAROL ANN LENCHO R INTERMEDIATE FRAME TENDER Ot N18.6 END STAGE RENAL DISEASE 05/26/2019 CAROL ANN LENCHO R INTERMEDIATE FRAME TENDER Ot Z89.432 ACQUIRED ABSENCE OF LEFT FOOT 05/26/2019 DAYLIN MAHARAJN R INTERMEDIATE FRAME TENDER Ot 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 05/26/2019 CAROL ANN LENCHO R INTERMEDIATE FRAME TENDER Ot E11.621 TYPE 2 DIABETES MELLITUS WITH FOOT ULCER 05/26/2019 CAROL ANN LENCHO R INTERMEDIATE FRAME TENDER Ot L97.522 NON-PRS CHRONIC ULCER OTH PRT LEFT FOOT 05/26/2019 DAYLIN MAHARAJN R INTERMEDIATE FRAME TENDER Ot N18.6 END STAGE RENAL DISEASE 05/26/2019 DAYLIN MAHARAJN R INTERMEDIATE FRAME TENDER Ot 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 05/26/2019 CAROL ANN, LENCHO R INTERMEDIATE FRAME TENDER Ot E11.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 05/26/2019 DAYLIN MAHARAJN R INTERMEDIATE FRAME TENDER Ot E11.621 TYPE 2 DIABETES MELLITUS WITH FOOT ULCER 05/26/2019 DAYLIN MAHARAJN R INTERMEDIATE FRAME TENDER Ot L97.522 NON-PRS CHRONIC ULCER OTH PRT LEFT FOOT 05/26/2019 CAROL ANN LENCHO R INTERMEDIATE FRAME TENDER Ot N18.6 END STAGE RENAL DISEASE 05/26/2019 CAROL ANN LENCHO R INTERMEDIATE FRAME TENDER Ot 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 05/26/2019 CAROL ANN LENCHO R INTERMEDIATE FRAME TENDER Ot E11.621 TYPE 2 DIABETES MELLITUS WITH FOOT ULCER 05/26/2019 CAROL ANN LENCHO R INTERMEDIATE FRAME TENDER Ot L97.522 NON-PRS CHRONIC ULCER OTH PRT LEFT FOOT 05/26/2019 DAYLIN MAHARAJN R INTERMEDIATE FRAME TENDER Ot M65.88 OTHER SYNOVITIS AND TENOSYNOVITIS, OTHER 05/26/2019 LENCHO MAHARAJ APRN Ot M85.88 OTH DISRD OF BONE DENSITY AND STRUCTURE, 05/26/2019 LENCHO MAHARAJ APRN Ot M87.9 OSTEONECROSIS, UNSPECIFIED 05/26/2019 LENCHO MAHARAJ APRN Ot N18.6 END STAGE RENAL DISEASE 05/26/2019 DALLIN UMAÑA MD, Ot 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 05/26/2019 DALLIN UMAÑA MD, Ot E11.42 TYPE [...] 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 05/26/2019 DALLIN UMAÑA MD, Ot E11.42 TYPE [...] 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 05/26/2019 DALLIN UMAÑA MD, Ot E11.42 TYPE [...] 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 05/26/2019 ADLLIN UMAÑA MD, Ot E11.42 TYPE 2 DIABETES [...] 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 05/26/2019 DALLIN UMAÑA MD, Ot E11.42 TYPE [...] 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 05/26/2019 DALLIN UMAÑA MD, Ot E11.42 TYPE [...] 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 05/26/2019 DALLIN UMAÑA MD, Ot E11.42 TYPE [...] 05/26/2019 Ot E66.9 OBES ITY, UNSPECIFIED 06/02/2019 BECCA MARKHAM MD Ot G47.33 OBSTRUCTIVE SLEEP APNEA (ADULT) (PEDIATR 08/02/2019 Ot E11.21 TYP E 2 DIABETES MELLITUS WITH DIABETIC N 08/02/2019 Ot E11.40 TYP E 2 DIABETES MELLITUS WITH DIABETIC N 08/02/2019 Ot E11.51 TYP E 2 DIABETES W DIABETIC PERIPHERAL AN 08/02/2019 Ot E11.65 TYP E 2 DIABETES MELLITUS WITH HYPERGLYCE 08/02/2019 Ot E66.9 OBES ITY, UNSPECIFIED 08/04/2019 NAVI ZAVALA MD Ot R11.2 NAUSEA WITH VOMITING, UNSPECIFIED 08/04/2019 NAVI ZAVALA MD Ot Z88.5 ALLERGY STATUS TO NARCOTIC AGENT STATUS 08/04/2019 NAVI ZAVALA MD Ot Z99.2 DEPENDENCE ON RENAL DIALYSIS 08/05/2019 RENARD MAYER MD Ot D63.1 ANEMIA IN CHRONIC KIDNEY DISEASE 08/05/2019 RENARD MAYER MD Ot 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 08/05/2019 RENARD MAYER MD Ot I12.9 HYPERTENSIVE CHRONIC KIDNEY DISEASE W ST 08/05/2019 RENARD MAYER MD Ot N18.6 END STAGE RENAL DISEASE 08/05/2019 RENARD MAYER MD Ot Z11.59 ENCOUNTER FOR SCREENING FOR OTHER VIRAL 08/05/2019 RENARD MAYER MD Ot Z85.528 PERSONAL HISTORY OF OTHER MALIGNANT NEOP 08/05/2019 RENARD MAYER MD Ot Z88.5 ALLERGY STATUS TO NARCOTIC AGENT STATUS 08/05/2019 RENARD MAYER MD Ot Z89.611 ACQUIRED ABSENCE OF RIGHT LEG ABOVE KNEE 08/05/2019 RENARD MAYER MD Ot Z89.612 ACQUIRED ABSENCE OF LEFT LEG ABOVE KNEE 08/05/2019 RENARD MAYER MD Ot Z90.5 ACQUIRED ABSENCE OF KIDNEY 08/05/2019 RENARD MAYER MD Ot Z99.2 DEPENDENCE ON RENAL DIALYSIS 08/08/2019 NAVI ZAVALA MD, Ot R11.2 NAUSEA WITH VOMITING, UNSPECIFIED 08/08/2019 NAVI ZAVALA MD, Ot Z88.5 ALLERGY STATUS TO NARCOTIC AGENT STATUS 08/08/2019 NAVI ZAVALA MD, Ot Z99.2 DEPENDENCE ON RENAL DIALYSIS Procedures There is no data. Results Test Result Range CMP - 06/17/18 10:50 GLUCOSE 298 mg/dL 65-139 UREA NITROGEN (BUN) 57 mg/dL 7-25 CREATININE 3.90 mg/dL 0.70-1.18 eGFR NON-AFR. BELGIAN 15 mL/min/1.73m2 > OR = 60 eGFR [...] 12:00 Bacteria identification in wound by culture [id number] NRG FREE TEXT EXTERNAL SUSCEPTIBILITY REPORTED 07-14-18 , 1205 NRG QUANTITY OF GROWTH Many NRG FREE TEXT ENTRY 2 METHICILLIN-SENSITIVE STAPH RADHA US NR RML Sensitivity Panel - 07/10/18 12:00 Gentamicin [...] 00:00 Bacteria identification in wound by culture [id number] NRG FREE TEXT EXTERNAL NO BETA STREP, STAPH AUREUS, OR NRG QUANTITY OF GROWTH PREDOMINANCE NRG FREE TEXT ENTRY 2 PSEUDOMONAS ISOLATED NRG Gram stain microscopy - 09/17/18 14:30 Gram stain microscopy Many Gram positive bacilli NRG Bacteria identification in wound by cult ure - 09/17/18 14:30 Bacteria identification in wound by culture [id number] NRG FREE TEXT EXTERNAL NO BETA STREP, STAPH AUREUS, OR NRG QUANTITY OF GROWTH LARGE AMOUNT NRG FREE TEXT ENTRY 2 PSEUDOMONAS ISOLATED NRG Gram stain microscopy - 12/18/18 10:32 Gram stain microscopy No bacteria seen NRG Bacteria identification in wound by cult ure - 12/18/18 10:32 Bacteria identification in wound by culture [id number] NRG FREE TEXT EXTERNAL SUSCEPTIBILITY REPORTED [...] 7-25 CREATININE 3.00 mg/dL 0.70-1.18 eGFR NON-AFR. BELGIAN 20 mL/min/1.73m2 > OR = 60 eGFR [...] 140-400 MPV 10.2 fL 7.5-12.5 ABSOLUTE NEUTROPHILS 40436 cells/uL 1500 -7800 ABSOLUTE LYMPHOCYTES 464 cells/uL [...] - 08/02/19 12:40 Lipase 12 U/L 8-78 Complete blood count (CBC) with automate d white blood cell (WBC) differential - 08/10/19 12:50 Blood leukocytes automated count (number/volume) 9.1 10*3/uL 4.3-11.0 Blood erythrocytes automated count (number/volume) 3.50 10*6/uL 4.35-5.85 Venous blood hemoglobin measurement (mass/volume) 9.6 g/dL 13.3-17.7 Blood hematocrit (volume fraction) 32 % 40-54 Automated erythrocyte mean corpuscular volume 92 [ foz_us] 80-99 Automated erythrocyte mean corpuscular h emoglobin (mass per erythrocyte) 27 pg 25-34 Automated erythrocyte mean corpuscular h emoglobin concentration measurement (mass/volume) 30 g/dL 32-36 Automated erythrocyte distribution width ratio 18. 0 % 10.0- 14.5 Automated blood platelet count (count/volume) 415 10*3/uL 130-400 Automated blood platelet mean volume measurement 9.0 [foz_us] 7.4-10.4 Automated blood neutrophils/100 leukocytes 80 % 42-75 Automated blood lymphocytes/100 leukocytes 8 % 12-44 Blood monocytes/100 leukocytes 5 % 0-12 Automated blood eosinophils/100 leukocytes 7 % 0-10 Automated blood basophils/100 leukocytes 0 % 0-10 Blood neutrophils automated count (number/volume) 7.3 10*3 1.8-7.8 Blood lymphocytes automated count (number/volume) 0.7 10*3 1.0-4.0 Blood monocytes automated count (number/volume) 0. 5 10*3 0.0-1.0 Automated eosinophil count 0.6 10*3/uL 0 .0-0.3 Automated blood basophil count (count/volume) 0.0 10*3/uL 0.0-0.1 Comprehensive metabolic panel - 08/10/19 12:50 Serum or plasma sodium measurement (moles/volume) 132 mmol/L 135-145 Serum or plasma potassium measurement (moles/volume) 4.4 mmol/L 3.6-5.0 Serum or plasma chloride measurement (moles/volume) 91 mmol/L 98-107 Carbon dioxide 30 mmol/L 21-32 Serum or plasma anion gap determination (moles/volume) 11 mmol/L 5-14 Serum or plasma urea nitrogen measurement (mass/volume ) 26 mg/dL 7-18 Serum or plasma creatinine measurement (mass/volume) 3.45 mg/dL 0.60-1.30 Serum or plasma urea nitrogen/creatinine mass ratio 8 NRG Serum or plasma creatinine measurement w ith calculation of estimated glomerular filtration rate 18 NRG Serum or plasma glucose measurement (mass/volume) 409 mg/dL 70-105 Serum or plasma calcium measurement (mass/volume) 7.9 mg/dL 8.5-10.1 Serum or plasma total bilirubin measurement (mass/volu me) 0.4 mg/dL 0.1-1.0 Serum or plasma alkaline phosphatase faith surement (enzymatic activity/volume) 115 U/L 40-136 Serum or plasma aspartate aminotransfera se measurement (enzymatic activity/volume) 10 U/L 5-34 Serum or plasma alanine aminotransferase measurement (enzymatic activity/volume) 7 U/L 0-55 Serum or plasma protein measurement (mass/volume) 7.6 g/dL 6.4-8.2 Serum or plasma albumin measurement (mass/volume) 2.3 g/dL 3.2-4.5 CALCIUM CORRECTED 9.3 mg/dL 8.5-10.1 Magnesium - 08/10/19 12:50 Magnesium 1.5 mg/dL 1.6-2.4 PROBNP FS - 08/10/19 12:50 [place] [address].0 pg/mL <75.0 Encounters ACCT No. Visit Date/Time Discharge Status Pt. Type Provider Facility Loc./Unit Complaint [id number] 05/01/2019 11:00:00 05/01/2019 23:59: 59 CLS Outpatient BECCA MARKHAM [facility] [id number] 07/24/2019 14:30:00 Document Registration [id number] 07/14/2018 15:30:00 Document Registration [id number] 07/03/2018 13:00:00 Document Registration [id number] 06/17/2018 10:48:00 Document Registration [id number] 06/17/2018 10:48:00 Document Registration [id number] 08/03/2019 16:03:00 17:17:00 DIS Outpatient RENARD MAYER MD [facility] ER FS WHEEZING [id number] 08/02/2019 12:17:00 14:40:00 DIS Outpatient NAVI ZAVALA MD [facility] ER FS N,V,D [id number] 04/30/2019 21:00:00 23:59:59 CLS Preadmit BECCA MARKHAM MD [facility] SLEEP OBSTRUCTIVE SLEEP APNEA [id number] 01/21/2019 12:07:00 00:01:00 DIS Outpatient LEN GARCIA MD [facility] DSME TYPE 2 DIABETES [id number] 04/03/2019 13:41:00 23:59:59 CLS Outpatient KRYSTAL GAMBINO APRN [facility] RAD URINARY RETENTI ON OTHER R33.8 [id number] 02/04/2019 10:10:00 23:59:59 CLS Outpatient DALLIN UMAÑA MD [facility] WOUNDCARE [id number] 01/28/2019 10:14:00 23:59:59 CLS Outpatient DALLIN UMAÑA MD [facility] WOUNDCARE [id number] 01/21/2019 10:23:00 23:59:59 CLS Outpatient DALLIN UMAÑA MD [facility] WOUNDCARE [id number] 01/14/2019 10:26:00 23:59:59 CLS Outpatient DALLIN UMAÑA MD [facility] WOUNDCARE [id number] 12/31/2018 10:39:00 23:59:59 CLS Outpatient DALLIN UMAÑA MD [facility] WOUNDCARE [id number] 12/29/2018 09:51:00 23:59:59 CLS Outpatient LENCHO MAHARAJ APRN [facility] RAD NON PRESSURE CH RONIC ULCER OF LEFT FOOT [id number] 12/24/2018 10:29:00 23:59:59 CLS Outpatient DALLIN UMAÑA MD [facility] WOUNDCARE [id number] 12/18/2018 09:37:00 23:59:59 CLS Outpatient DALLIN UMAÑA MD [facility] WOUNDCARE [id number] 12/11/2018 11:42:00 23:59:59 CLS Outpatient LENCHO MAHARAJ APRN [facility] RAD TYPE 2 DIABETES W/ FOOT ULCER [id number] 12/11/2018 10:56:00 23:59:59 CLS Outpatient LENCHO MAHARAJ APRN [facility] WOUNDCARE [id number] 12/04/2018 10:41:00 09/12/2 019 23:59:59 CLS Outpatient LENCHO MAHARAJ APRN [facility] RAD E11.621,N18.6 [id number] 12/04/2018 09:14:00 23:59:59 CLS Outpatient LENCHO MAHARAJ APRN [facility] WOUNDCARE [id number] 09/17/2018 14:54:00 23:59:59 CLS Outpatient SELF BECCA THORNTON [facility] LAB FS [id number] 08/22/2018 16:09:00 23:59:59 CLS Outpatient BECCA MARKHAM MD [facility] LAB FS LT LEG ULCER [id number] 07/10/2018 11:00:00 23:59:59 CLS Outpatient SELF BECCA THORNTON [facility] IHC WOUND CULTURE [id number] 08/10/2019 13:11:00 Document Registration [id number] 04/22/2019 00:00:00 Document Registration
[2019-08-10] MEDS ORDERED: inSUlin (REGULAR) HUMAN 1 UNIT/0.01 ML (CHARGE PER UNIT) IV ONE (13:45)
[2019-08-10 13:47] LABS: BAND NEUTROPHILS 7 %; BASOPHILS % (MANUAL) 1 %; EOSINOPHILS % (MANUAL) 7 %; HYPOCHROMASIA 1+; LYMPHOCYTES % (MANUAL) 6 %; MICROCYTOSIS 1+; MONOCYTES % (MANUAL) 6 %; NEUTROPHILS % (MANUAL) 73 %
[2019-08-10 14:16] VITALS: BP 134/55
[2019-08-10] MEDS ORDERED: DOXY100T2 PO (14:17)
[2019-08-10] MEDS ORDERED: ONDANSETRON 4 MG (ZOFRAN) ORAL DISSOLVE TAB ONE (14:38)
[2019-08-10] MEDS ORDERED: ONDANSETRON 4 MG (ZOFRAN) ORAL DISSOLVE TAB PO STA (14:44)
== END 2019-08-10 14:55 | disposition home or self-care (01) ==
LOC: EDUNIT# 12:09 → ER FS 12:10
DX: J18.9 Pneumonia, unspecified organism (principal); E11.65 Type 2 diabetes mellitus with hyperglycemia; E11.22 Type 2 diabetes mellitus with diabetic chronic kidney disease; I12.0 Hypertensive chronic kidney disease with stage 5 chronic kidney disease or end stage renal disease; N18.6 End stage renal disease; D63.1 Anemia in chronic kidney disease; Z99.2 Dependence on renal dialysis; Z88.5 Allergy status to narcotic agent; Z20.828 Contact with and (suspected) exposure to other viral communicable diseases; Z85.528 Personal history of other malignant neoplasm of kidney; Z90.5 Acquired absence of kidney; Z89.511 Acquired absence of right leg below knee; Z89.512 Acquired absence of left leg below knee
CPT/HCPCS: 36415; 71045; 80053; 82962; 83036; 83735; 83880; 85007; 85027; 93005; 96374

== ENCOUNTER → 2019-08-25 | Outpatient (CLI) | payer MEDICARE, OTHER ==
[~2019-08-25] MED LIST changes: +DOXY100T2 PO
[2019-08-25 16:27] LABS: ABG PCO2 46 MMHG (35-45); ABG PH 7.59 (7.37-7.43)
[2019-08-25 16:30] LABS: ABG PO2 38 MMHG (79-93); ABG TCO2 45.5 MMOL/L (21.0-31.0)
[2019-08-25 16:31] LABS: ABG BASE EXCESS 19.9 MMOL/L (-2.5-2.5); ABG OXYGEN SATURATION 82 % (94-100); ALLENS TEST OK; INSPIRED O2 ROOM AIR; VENTILATOR NO
--- NOTE | 2019-08-25 18:46 | Diagnostic Imaging Report ---
INDICATION: History of pneumonia, cough, shortness of breath. Low oxygen saturation. TECHNIQUE: Two view chest 4:32 PM CORRELATION STUDY: 08/10/2019 FINDINGS: Examination compromised with utilization of wheelchair at the time of imaging. Heart size is enlarged. There is presence of pulmonary vascular congestion and perihilar edema, adversely changed from prior study. Patchy pulmonary parenchymal densities superior to the perihilar region as well as right mid and lower lung watters. Likely largely edema. Superimposed infiltrate particularly in the right mid and lower lung field, however, is not excluded. Bilateral pleural effusions. Vascular stent over left axilla present. Right-sided [id number] catheter tip over the right atrium. IMPRESSION: 1. Findings of congestive heart failure, adversely changed from prior study. 2. Superimposed areas of edema versus infiltrate particularly in the right mid and lower lung watters. Bilateral pleural effusions. Dictated on workstation # [id number]
== END ==
LOC: LAB FS 15:41
PROVIDERS: ATTEND Family Medicine
DX: I50.9 Heart failure, unspecified (principal); J90 Pleural effusion, not elsewhere classified; Z95.828 Presence of other vascular implants and grafts; Z87.01 Personal history of pneumonia (recurrent)
CPT/HCPCS: 71046; 82805